=== PATIENT | female | born 1945 | race Caucasian/White ===

== ENCOUNTER 2019-11-04 15:49 | Outpatient (CLI) | payer OTHER, SELFPAY ==
[2019-11-04 16:58] LABS: Alanine Aminotransferase 19 U/L (4-35); Alkaline Phosphatase 101 U/L (38-126); Anion Gap 8 mmol/L (8-16); Aspartate Amino Transferase 27 U/L (14-36); Bilirubin,Total < 0.1 mg/dL (0.2-1.3); Blood Urea Nitrogen 16 mg/dL (7-17); Calcium 8.7 mg/dL (8.4-10.2); Carbon Dioxide 23 mmol/L (22-30); Chloride 108 mmol/L (98-107); Cholesterol 244 mg/dL (0-200); Estimated Glomerular Filt Rate > 60; Glucose 64 mg/dL (65-105); HDL Direct 86 mg/dL; Potassium 3.4 mmol/L (3.4-5.0); Sodium 139 mmol/L (137-145); Triglycerides 196 mg/dL (<150)
[2019-11-04 17:13] LABS: LDL Cholesterol Direct 124 mg/dL
[2019-11-04 18:13] LABS: Hemoglobin A1C 5.5 % (<5.7)
== END 2019-11-04 15:50 | disposition home or self-care (01) ==
LOC: ANHLAB 15:52
PROVIDERS: PCP Emergency Medicine; Visit Provider Emergency Medicine
DX: E03.9 Hypothyroidism, unspecified (principal)
CPT/HCPCS: 36415; 80053; 80061; 83036; 84443

== ENCOUNTER 2020-03-21 14:21 | Inpatient (IN) | payer OTHER, MEDICAID, SELFPAY ==
[2020-03-21] VITALS (30 sets, daily range): BP systolic 110–132; BP diastolic 43–96; PULSE 67–101; RESP 12–29; TEMP 36.1–36.4; O2SAT 86–100; BMI 20.5
--- NOTE | ~2020-03-21 | XR_ITS ---
EXAMINATION: XR hand LT min 3V DATE: 03/21/2020 14:42 INDICATION: Left hand pain and swelling. TECHNIQUE: 3 views of left hand were obtained. COMPARISON: None. FINDINGS: Bone alignment is normal. There is diffuse osteopenia. No fracture. Joint spaces are normal . IMPRESSION: 1. No fracture. Reviewed, dictated and finalized at location A. SELING SERVICES DIRECTOR IMPRESSION: 1. No fracture.
--- NOTE | ~2020-03-21 | CT_ITS ---
EXAMINATION: CT brain wo con DATE: 03/21/2020 22:41 INDICATION: Dizziness TECHNIQUE: Computed tomography (CT) of the head was performed without intravenous contrast. Sagittal and coronal reconstructions were performed. The mA was adjusted according to patient size. Iterative reconstruction technique was employed. The dose-length product was 1210.67 mGy-cm. COMPARISON: head CT dated 09/12/15 FINDINGS: No acute intracranial hemorrhage, acute infarction or abnormal extra axial fluid collection. There is mild scattered white matter hypoattenuation consistent with chronic small vessel ischemic disease. S ymmetric prominence of the sulci consistent with mild age-appropriate diffuse cerebral volume loss. V entricles are normal and symmetric. No mass/mass effect. Intracranial calcified cerebral atherosclero sis is noted. The orbits, paranasal sinuses and mastoid air cells are normal. IMPRESSION: 1. No acute intracranial process. 2. Age-related changes including mild diffuse volume loss and mild scattered white matter hypoattenua tion consistent with chronic small vessel ischemic disease. Reviewed, dictated and finalized at location A. HT CONTROL TOWER OPERATOR IMPRESSION: 1. No acute intracranial process. 2. Age-related changes including mild diffuse volume loss and mild scattered wh ite matter hypoattenuation consistent with chronic small vessel ischemic diseas e.
--- NOTE | ~2020-03-21 | XR_ITS ---
EXAMINATION: XR chest 2V DATE: 03/21/2020 14:42 INDICATION: Chest pain and shortness of breath. TECHNIQUE: Frontal and lateral views of the chest were obtained. COMPARISON: Chest 2 views 03/31/2018, CT abdomen and pelvis 08/15/2016 FINDINGS: There are small pleural effusions. There are airspace opacities at the lung bases. No pneum othorax. The heart size is normal. There is a moderate-sized hiatal hernia. There are bilateral breas t implants. IMPRESSION: 1. Small pleural effusions. 2. Airspace opacities at the lung bases, consistent with atelectasis versus pneumonia. 3. Moderate-sized hiatal hernia. Reviewed, dictated and finalized at location A. H TESTER IMPRESSION: 1. Small pleural effusions. 2. Airspace opacities at the lung bases, consistent with atelectasis versus pne umonia. 3. Moderate-sized hiatal hernia.
--- NOTE | ~2020-03-21 | CT_ITS ---
EXAMINATION: CTA chest PE protocol DATE: 03/21/2020 22:41 INDICATION: Chest pain TECHNIQUE: Computed tomography (CT) pulmonary angiogram of the chest was performed with 100 mL Omnipa que-350 intravenous contrast. Additional 3D reconstructions utilizing coronal maximum intensity proje ction (MIP) were performed. The dose-length product was 274.87 mGy-cm. COMPARISON: None FINDINGS: There is mild streak artifact from dense contrast in the superior vena cava and right atrium. Mild sc attered respiratory motion artifact. Excellent contrast opacification of the majority of the pulmonar y arteries. The proximal margin of the contrast bolus however is not completely extended into the sub segmental pulmonary arteries in the basilar segments of the bilateral lower lobes which transition to an opacified blood pool without a discrete well-defined filling defect. No pulmonary emboli identifi ed. Moderate emphysema. Small left and moderate-sized right posterior layering pleural effusions with compressive atelectasis in the dependent aspect of the bilateral lower lobes and to a lesser degree along the posterior aspect of the apical segments of the bilateral upper lobes. Dependent groundglass opacities in the noncollapsed portions of the lungs which in order of likelihood could represent add itional atelectasis, mild pulmonary edema or pneumonia. Mild cardiomegaly. No pericardial effusion. T horacic aorta is normal in caliber. No pathologically enlarged thoracic lymphadenopathy. Small slidin g-type hiatal hernia. There is some fluid layering dependently in the esophagus suggesting reflux. Bi lateral likely silicone breast implants with peripheral capsular calcification. There is a linguine s ign on the right consistent with implant rupture with relatively contained lobular extra capsular ext ension of silicone extending towards the right axilla. Visualized upper abdomen is unremarkable. Thor acolumbar dextroscoliosis with mild to moderate spondylosis. IMPRESSION: 1. No pulmonary embolism. Some of the more peripheral pulmonary arteries in the bibasilar segments of the lower lobes are unable to be assessed due to incomplete contrast opacification resulting from ph ase of contrast. 2. Small left and moderate sized right pleural effusions. 3. Dependent predominant opacities and consolidation in both lungs most likely atelectasis although c ould not exclude mild pulmonary edema or less likely pneumonia. 4. Moderate emphysema. 5. Mild cardiomegaly. 6. Likely refluxed fluid in the esophagus with small sliding-type hiatal hernia. 7. Bilateral breast implants, ruptured on the right with relatively contained extracapsular extension of likely silicone. Reviewed, dictated and finalized at location A. ULATION SUPERVISOR IMPRESSION: 1. No pulmonary embolism. Some of the more peripheral pulmonary arteries in the bibasilar segments of the lower lobes are unable to be assessed due to incompl ete contrast opacification resulting from phase of contrast. 2. Small left and moderate sized right pleural effusions. 3. Dependent predominant opacities and consolidation in both lungs most likely atelectasis although could not exclude mild pulmonary edema or less likely pneu monia. 4. Moderate emphysema. 5. Mild cardiomegaly. 6. Likely refluxed fluid in the esophagus with small sliding-type hiatal hernia . 7. Bilateral breast implants, ruptured on the right with relatively contained e xtracapsular extension of likely silicone.
--- NOTE | ~2020-03-21 | US_ITS ---
EXAMINATION: US soft tissue UE LT DATE: 03/27/2020 11:04 INDICATION: Dorsal left wrist swelling. TECHNIQUE: Multiple grayscale and Doppler ultrasound images of the left wrist were obtained. COMPARISON: Radiographs dated 03/21/2020 FINDINGS: There is diffuse subcutaneous edema about the left wrist. Trace amount of fluid along the extensor te ndons consistent with mild tenosynovitis. There is also hypoechoic and hyperemic synovitis at both th e dorsal and volar aspects of the wrist and carpus without a drainable joint effusion. IMPRESSION: 1. Nonspecific cellulitis, synovitis and extensor tenosynovitis at the left wrist which could be eith er infectious or inflammatory in etiology. No joint effusion or other drainable fluid collections. Reviewed, dictated and finalized at location A. ESTATE RENTAL AGENT IMPRESSION: 1. Nonspecific cellulitis, synovitis and extensor tenosynovitis at the left wri st which could be either infectious or inflammatory in etiology. No joint effus ion or other drainable fluid collections.
--- NOTE | ~2020-03-21 | XR_ITS ---
EXAMINATION: XR wrist LT min 3V DATE: 03/21/2020 18:15 INDICATION: Cellulitis presenting with left wrist and arm pain. TECHNIQUE: Posteroanterior, ulnar deviation, oblique, and lateral views of the left wrist were obtain ed. COMPARISON: Left hand radiographs dated 03/21/2020 FINDINGS: Bone alignment is normal. No fracture. Joint spaces are normal. Diffuse osteopenia. No cortical erosi ons or periosteal reaction to suggest osteomyelitis. Soft tissue swelling about the left wrist and [place] nd most prominent volar to the wrist. No evident soft tissue gas or radiopaque foreign bodies. IMPRESSION: 1. No acute osseous abnormality Reviewed, dictated and finalized at location A. GOLF CART REPAIRER
--- NOTE | 2020-03-21 14:25 | ECG_ITS ---
Measurements Intervals [place] Rate: 71 P: 20 MS: 151 QRS: -14 QRSD: 116 T: 35 QT: 411 QTc: 448 Interpretive Statements SINUS RHYTHM INTRAVENTRICULAR CONDUCTION DELAY BORDERLINE R WAVE PROGRESSION, ANTERIOR LEADS NONSPECIFIC ST & T-WAVE ABNORMALITY- DIFFUSE LEADS BASELINE ARTIFACT- I, II, III, AVR, AVL, AVF, V2-V6 BORDERLINE ECG Electronically Signed On 03-21-2020 14:36:07 SENIOR ACCOUNTANT ANALYST by Kenroy Solis D.O.
[2020-03-21 14:41] LABS: Basophils Absolute Auto 0.1 K/mm3 (0.0-0.1); Basophils Percent Auto 0.7 % (0.2-1.2); Eosinophils Percent Auto 0.1 % (0-4.4); Hematocrit 28.4 % (37.0-47.0); Hemoglobin 7.7 g/dL (12.0-15.0); Immature Granulocyte Absolute 0.04 K/mm3 (0.00-0.031); Immature Granulocyte Percent A 0.5 % (0-0.5); Lymphocytes Absolute Auto 1.47 K/mm3 (0.9-3.2); Mean Corpuscular HGB Conc 27.1 g/dl (32-36); Mean Corpuscular Hemoglobin 18.3 pg (26-34); Mean Corpuscular Volume 67.6 fl (80-100); Mean Platelet Volume 8.8 fl (7.4-10.4); Monocytes Absolute Auto 0.8 K/mm3 (0.1-0.6); Monocytes Percent Auto 9.9 % (2.6-8.5); Neutrophils Absolute Auto 5.8 K/mm3 (1.3-6.7); Neutrophils Percent Auto 70.8 % (45.5-73.1); Platelet Count Result 321 k/mm3 (150-375); Red Cell Distribution Width 20.7 % (11.5-14.5); White Blood Count 8.2 K/mm3 (4.5-10.0)
[2020-03-21 14:51] LABS: INR 1.3; Prothrombin Time 16.9 Seconds (11.1-14.7)
[2020-03-21 14:52] LABS: Partial Thromboplastin Time 30.1 SECONDS (22.3-36.8)
[2020-03-21 14:55] LABS: Anion Gap 10 mmol/L (8-16); Blood Urea Nitrogen 7 mg/dL (7-17); Calcium 8.1 mg/dL (8.4-10.2); Carbon Dioxide 21 mmol/L (22-30); Chloride 110 mmol/L (98-107); Estimated Glomerular Filt Rate > 60; Glucose 108 mg/dL (65-105); Potassium < 2.0 mmol/L (3.4-5.0); Sodium 141 mmol/L (137-145)
[2020-03-21 15:03] LABS: NT Pro B Type Natriuretic Pept 21200 PG/ML (5-100)
[2020-03-21 15:05] LABS: Platelet Estimate Adequate (Adequate); Troponin I 0.024 ng/mL (0.000-0.034)
[2020-03-21 15:06] LABS: Anisocytosis 3+ (NORMAL); Hypochromasia 2+ (NORMAL)
[2020-03-21 15:13] LABS: CRP 15.1 mg/dL (<1.0)
[2020-03-21] MEDS: ASPIRIN 81 MG CHEWABLE TABLET 324 MG PO (17:28)
--- NOTE | 2020-03-21 18:05 | ED.GENADULT ---
HPI - General Adult General Chief complaint: Wound/Laceration Stated complaint: cellulitis l hand Time Seen by Provider: 03/21/20 17:38 Source: patient History of Present Illness HPI narrative: Patient is a 75 y/o female complaining of left wrist pain for 5 days. She describes her pain as burning and rates it as 8/10. She states that her pain radiate up her left arm. She states that soaking in cold water helps with her pain slightly. She denies any fever or chill. She has chronic chest pain for over 1 year which has been evaluated the past. Related Data Home Medications Medication Instructions Recorded Confirmed latanoprost 0.005 % eye drops 1 drop EACH EYE .COMPLEX 04/15/19 03/21/20 carvedilol 6.25 mg tablet 6.25 mg PO BID 08/11/19 03/21/20 pantoprazole 40 mg tablet,delayed 40 mg PO DAILY tablet 10/26/19 03/21/20 release levothyroxine 50 mcg PO DAILY 03/21/20 03/21/20 temazepam 15 mg PO HS 03/21/20 03/21/20 venlafaxine 75 mg PO DAILY 03/21/20 03/21/20 Allergies Allergy/AdvReac Type Severity Reaction Status Date / Time lactose AdvReac Mild emesis, Verified 03/21/20 17:18 diarrhea Review of Systems Constitutional: Constitutional: Denies chills, Denies fever(s), Denies headache(s) and Denies weakness Eyes: Eyes: Denies blurry vision ENT: Denies headache(s) and Denies neck pain Cardiovascular: Cardiovascular: Reports chest pain and Denies dyspnea Respiratory: Respiratory: Denies cough and Denies dyspnea Gastrointestinal: Gastrointestinal: Denies abdominal pain, Denies diarrhea, Denies nausea and Denies vomiting Genitourinary: Genitourinary: Denies hematuria and Denies dysuria Musculoskeletal: Musculoskeletal: Denies back pain, Reports arthralgias (left wrist pain) and Denies neck pain Integumentary/Breasts: Skin/Breast: Reports erythema (left wrist) Neurologic: Denies headache(s) and Denies weakness PMFSH Past Medical History Medical History Anxiety Depression Surgical History Surgical History H/O ankle fusion bilateral Social History Social History Smoking status: Current every day smoker Alcohol intake: never Substance use: never Gender identity (if verbalized by the patient): Female Spiritual care concerns: No Exam Const: General: no acute distress and well developed Orientation/consciousness: oriented to person, oriented to place, oriented to time and patient oriented x3 HENMT: Head: normocephalic Ears: external ears normal General nose exam: Normal external nose present Eyes: General: appearance normal, both eyes and all related structures Conjunctivae: conjunctivae normal Neck: Neck: normal visual inspection and full ROM Chest: Chest palpation & inspection: normal inspection of the chest and no tenderness Resp: Effort & Inspection: normal respiratory effort Auscultation: clear to auscultation bilaterally Cardio: Rate: regular rate Rhythm: regular rhythm GI: GI Palp: No abdominal tenderness and Yes Soft to palpation Skin: General skin exam: normal color, turgor normal and erythema (left wrist) Neuro: General: oriented to person, oriented to place, oriented to time and patient oriented x3 Cognition (Neuro): normal cognition Motor exam (neuro): Other motor observations present (right leg weak - chronic according to patient due to h/o polio) Extrem: General: normal to inspection, full ROM and no pedal edema Left upper extremity: wrist tenderness and swelling Psych: Appearance: grossly normal Mental Status: mental status grossly normal Affect: normal affect Course Reevaluation(s) Reevaluation #1: Patient is complaining of increasing chest pain and dizziness. Will repeat EKG and Troponin. Rechecked. Neuro exam is unchanged. Date: 03/21/20 Time: 20:25 Consultations Consultation #1: Discussed with KATALINA Marte
[2020-03-21] MEDS: POTASSIUM CHLORIDE 20 MEQ TABLET 40 MEQ PO (18:46)
[2020-03-21] MEDS: KCL 20 MEQ/SW 100 ML 100 ML 50 MEQ IVPB (19:01)
[2020-03-21 19:10] LABS: Potassium 2.4 mmol/L (3.4-5.0); Uric Acid 4.7 mg/dL (2.5-7.5)
[2020-03-21 19:14] LABS: Magnesium 1.6 mg/dL (1.6-2.3)
--- NOTE | 2020-03-21 19:15 | PC.NURSE ---
Assumed care of Pt. Report from LOIDA Schneider
[2020-03-21 19:56] LABS: Erythrocyte Sedimentation Rate 18 mm/hr (0-20)
[2020-03-21] MEDS: POTASSIUM CHLORIDE 20 MEQ TABLET 80 MEQ PO (20:11)
[2020-03-21] MEDS: ONDANSETRON INJ 4 MG/2 ML VIAL (20:40)
[2020-03-21] MEDS: MAGNESIUM SULF 4 GM/WATER100ML 4 GM/100 ML BAG IVPB (20:40)
--- NOTE | 2020-03-21 20:49 | PC.NURSE ---
Pt. placed on 2L NC o2 88% ERP notified.
--- NOTE | 2020-03-21 20:56 | ECG_ITS ---
Measurements Intervals [place] Rate: 67 P: 57 AK: 169 QRS: -59 QRSD: 117 T: 0 QT: 431 QTc: 458 Interpretive Statements SINUS RHYTHM POSSIBLE LEFT ATRIAL ENLARGEMENT LEFT ANTERIOR FASCICULAR BLOCK NONSPECIFIC ST & T-WAVE ABNORMALITY- DIFFUSE LEADS BASELINE ARTIFACT- I, II, III, V1 ABNORMAL ECG Electronically Signed On 03-22-2020 7:03:19 LOCOMOTIVE LUBRICATING SYSTEMS CLERK by Kenroy Solis D.O.
[2020-03-21] MEDS: MORPHINE SULFATE (*CRX) 4 MG/ML INJ IV PUSH (21:03)
[2020-03-21] MEDS: LORazepam INJ (*CRX) 2 MG/ML VIAL 1 MG IV PUSH (21:05)
[2020-03-21 21:06] LABS: Troponin I 0.022 ng/mL (0.000-0.034)
[2020-03-21 21:45] LABS: D Dimer 1.75 ug/mL (<0.48)
--- NOTE | 2020-03-21 22:40 | PC.NURSE ---
Report received from LOIDA Pryor
[2020-03-21] MEDS: FUROSEMIDE INJ 40 MG/4 ML VIAL IV PUSH (23:00)
--- NOTE | 2020-03-21 23:07 | ADMIMU ---
This patient, Gianna Miranda, was admitted to IMU status, and placed in IMU Room 207-01 on 03-21-20 at 2300. Patient/family oriented to hospital policies and general routines including ID bracelet, bed and alarms, visiting hours, pain management, procedures, bathroom and other care routines, personal items, smoking policy, room service/diet, and visiting hours. Valuables list has been completed. Information on how to activate the Rapid Response Team has been discussed. Patient/Family are encouraged to report perceived risks to care and to ask questions if they do not understand what they are told or what they should do.
[2020-03-21 23:49] LABS: Troponin I 0.023 ng/mL (0.000-0.034)
[2020-03-22] VITALS (15 sets, daily range): BP systolic 96–133; BP diastolic 42–82; PULSE 67–85; RESP 18–20; TEMP 36.2–36.6; O2SAT 92–100
--- NOTE | 2020-03-22 | ECHO_ITS ---
Patient Info Name: Gianna Miranda Age: 75 years : 1945 Gender: Female Ht: 57 in Wt: 94 lbs BSA: 1.31 m2 HR: 71 bpm BP: 120 / 42 mmHg Heart Rhythm: Sinus Rhythm Technical Quality: Good Exam Date: 03/22/2020 11:39 AM Exam Location: [facility] Pulmonary Patient Status: Outpatient Admit Date: 03/21/2020 Staff Ordering Physician: John Reyes MD Dukey Rider: Vance Worthy, KADIE, RT Attending Provider: John Reyes MD Exam Type: CA echo doppler color flow Study Info Indications R07.89 - Other chest pain Complete two-dimensional, color flow and Doppler transthoracic echocardiogram is performed. Strain analysis performed. Summary 1. Complete two-dimensional, color flow and Doppler transthoracic echocardiogram is performed. 2. There is normal left ventricular size and thickness, with severe global hypokinesis estimated ejection fraction 25-30%. Grade 2 diastolic dysfunction is present. No focal wall motion abnormalities. 3. Left atrial chamber dimension is moderately enlarged. 4. There is moderate to severe aortic valve regurgitation. 5. There is moderate to moderately severe mitral valve regurgitation. 6. There is mild tricuspid valve regurgitation. 7. Mild pulmonary hypertension, estimated pulmonary arterial systolic pressure is 42 mmHg. 8. A small posterior pleural effusion may be present. 9. Compared to a prior study in 2010, there has been a significant decline in left ventricular function and worsening of valvular heart disease. Left Ventricle Left ventricular chamber dimension is normal. Left ventricular systolic function is severely reduced, estimated at 25-30%. There is no increased left ventricular wall thickness. Left ventricular septal wall motion is normal. The left ventricular diastolic function is grade II diastolic dysfunction. Right Ventricle Right ventricular chamber dimension is normal. Right ventricular systolic function is normal. Left Atria Left atrial chamber dimension is moderately enlarged. Right Atria Right atrial chamber dimension is normal. Aortic Valve The aortic valve is trileaflet. There is no aortic valve sclerosis. There is no aortic valve stenosis. There is moderate to severe aortic valve regurgitation. Pulmonic Valve The pulmonic valve is normal. There is no pulmonic valve stenosis. There is no pulmonic regurgitation. Mitral Valve The mitral valve has normal leaflets. There is moderate to moderately severe mitral valve stenosis. There is moderate to moderately severe mitral valve regurgitation. Tricuspid Valve The tricuspid valve leaflets are normal. There is no significant tricuspid valve stenosis. There is mild tricuspid valve regurgitation. Mild pulmonary hypertension, estimated pulmonary arterial systolic pressure is 42 mmHg. Pericardium/Pleural The pericardium appears normal. There is no pericardial effusion. Inferior Vena Cava Normal inferior vena cava with >50% collapse upon inspiration consistent with Empty right atrial pressure, 10 mmHg. Aorta The aortic root size at the sinus of Valsalva is normal. The prox ascending aorta size is normal. Left Ventricular Outflow Tract Name Value Normal LVOT 2D LVOT Diameter
[2020-03-22 05:10] LABS: Hematocrit 28.4 % (37.0-47.0); Hemoglobin 7.8 g/dL (12.0-15.0); Mean Corpuscular HGB Conc 27.5 g/dl (32-36); Mean Corpuscular Hemoglobin 18.5 pg (26-34); Mean Corpuscular Volume 67.5 fl (80-100); Mean Platelet Volume 9.1 fl (7.4-10.4); Platelet Count Result 338 k/mm3 (150-375); Red Blood Count 4.21 M/mm3 (4.2-5.4); Red Cell Distribution Width 20.9 % (11.5-14.5); White Blood Count 8.1 K/mm3 (4.5-10.0)
[2020-03-22 05:22] LABS: INR 1.2; Partial Thromboplastin Time 32.6 SECONDS (22.3-36.8); Prothrombin Time 15.7 Seconds (11.1-14.7)
[2020-03-22 05:50] LABS: Anion Gap 9 mmol/L (8-16); Blood Urea Nitrogen 9 mg/dL (7-17); Calcium 8.1 mg/dL (8.4-10.2); Carbon Dioxide 24 mmol/L (22-30); Chloride 110 mmol/L (98-107); Estimated Glomerular Filt Rate > 60; Glucose 118 mg/dL (65-105); Magnesium 2.5 mg/dL (1.6-2.3); Phosphorus 3.3 mg/dL (2.5-4.5); Sodium 143 mmol/L (137-145)
[2020-03-22 05:56] LABS: Transferrin 306 mg/dL (206-381)
[2020-03-22 06:07] LABS: Iron 19 ug/dL (37-170)
[2020-03-22 06:17] LABS: Percent Iron Saturation 5 % (20-50)
[2020-03-22] MEDS: LEVOTHYROXINE SODIUM 50 MCG TABLET PO (06:37)
[2020-03-22 06:58] LABS: Folic Acid 13.9 ng/mL (2.76->20); Vitamin B12 > 1000.0 pg/mL (239-931)
[2020-03-22] MEDS: VENLAFAXINE HCL XR 75 MG CAP.ER.24H PO (07:58)
[2020-03-22] MEDS: PANTOPRAZOLE 40 MG TABLET PO (07:59)
[2020-03-22] MEDS: LATANOPROST 0.005% OP SOLN 2.5 ML BTL 1 DROP EACH EYE (08:00)
[2020-03-22] MEDS: carvediloL 6.25 MG TABLET PO ×2 (08:05→17:36)
[2020-03-22] MEDS: POTASSIUM CHLORIDE 20 MEQ TABLET 40 MEQ PO (11:16)
--- NOTE | 2020-03-22 16:50 | PM.IMHP ---
H&P: HPI History of Present Illness Date/Time: 03/22/20 16:50 Chief Complaint: Left wrist pain and swelling Narrative: Gianna Miranda is a 75 year old female presented emergency department with a complaint of left wrist pain and swelling patient states she had a similar presentation last year in her lower extremity and developed severe cellulitis and was admitted in ICU. She does not know how she injured the wrist however it is very painful for her, x-ray of left wrist and hand showed no acute injury, will start the patient on Ancef for cellulitis, she denies any fever or chills, she also has a long history of chest pain for which patient has been evaluated in the past and currently 3 sets of cardiac enzymes are negative and there are no acute injury on EKG. Review of Systems Review of Systems: All systems reviewed & are unremarkable except as noted in HPI and below PMFSH Past Medical History Medical History Anxiety Depression Surgical History Surgical History H/O ankle fusion bilateral Family History Family History (Updated 03/22/20 @ 02:39 by Marilin Ricardo RN) Grandparent Diabetes mellitus FH: brain aneurysm Mother Hypertension Social History Social History Smoking packs per day: 1 Smoking cigarettes per day: 20.0 Years smoked: 30 Smoking pack-years: 30.00 Smoking status: Former smoker Tobacco type: cigarettes Second hand tobacco smoke exposure: Yes Alcohol intake: never Substance use: never Gender identity (if verbalized by the patient): Female Spiritual care concerns: No Meds Home Medications and Allergies Home Medications Medication Instructions Recorded Confirmed Type latanoprost 0.005 % eye drops 1 drop EACH EYE .COMPLEX 04/15/19 03/21/20 History carvedilol 6.25 mg tablet 6.25 mg PO BID 08/11/19 03/21/20 History pantoprazole 40 mg tablet,delayed 40 mg PO DAILY tablet 10/26/19 03/21/20 History release levothyroxine 50 mcg PO DAILY 03/21/20 03/21/20 History temazepam 15 mg PO HS 03/21/20 03/21/20 History venlafaxine 75 mg PO DAILY 03/21/20 03/21/20 History Allergies Allergy/AdvReac Type Severity Reaction Status Date / Time lactose AdvReac Mild emesis, Verified 03/21/20 17:18 diarrhea Vital Signs Vital Signs - 24 hr 03/21/20 17:17 03/21/20 19:00 03/21/20 19:01 Temperature Pulse Rate 78 76 76 Respiratory Rate 18 19 21 H Blood Pressure 119/71 125/78 Pulse Oximetry 100 100 03/21/20 19:10 03/21/20 19:15 03/21/20 19:16 Temperature Pulse Rate 101 H 75 74 Respiratory Rate 12 16 12 Blood Pressure 119/49 L 126/58 L Pulse Oximetry 99 99 100 03/21/20 19:30 03/21/20 19:31 03/21/20 19:45 Temperature Pulse Rate 79 78 81 Respiratory Rate 25 H 25 H 25 H Blood Pressure 132/57 L Pulse Oximetry 100 100 100 03/21/20 19:46 03/21/20 20:00 03/21/20 20:02 Temperature Pulse Rate 78 75 75 Respiratory Rate 15 21 H 19 Blood Pressure 127/55 L 119/49 L Pulse Oximetry 99 99 98 03/21/20 20:03 03/21/20 20:17 03/21/20 20:38 Temperature Pulse Rate 76 99 68 Respiratory Rate 20 16 29 H Blood Pressure Pulse Oximetry 97 89 L 03/21/20 20:41 03/21/20 20:42 03/21/20 20:45 Temperature Pulse Rate 68 68 69 Respiratory Rate 27 H 26 H 25 H Blood Pressure 123/56 L Pulse Oximetry 86 L 03/21/20 20:46 03/21/20 21:00 03/21/20 21:01 Temperature Pulse Rate 67 71 70 Respiratory Rate 25 H 27 H 17 Blood Pressure 117/57 L 126/58 L Pulse Oximetry 100 100 03/21/20 21:15 03/21/20 21:30 03/21/20 21:45 Temperature Pulse Rate 81 75 67 Respiratory Rate 20 14 12 Blood Pressure Pulse Oximetry 100 03/21/20 21:46 03/21/20 22:16 03/21/20 22:18 Temperature Pulse Rate 68 74 75 Respiratory Rate 17 13 13 Blood Pressure 110/96 H Pulse Oximetry
[2020-03-22] MEDS: TEMAZEPAM (*CRX) 15 MG CAPSULE PO (19:43)
--- NOTE | 2020-03-22 20:35 | PC.NURSE ---
This patient, Gianna Miranda, was transferred to [facility] on 03/22/20 at 2035. Personal belongings sent with patient. Report given to Ranulfo MARISCAL. Appropriate documentation sent with patient.
[2020-03-23] VITALS (11 sets, daily range): BP systolic 104–131; BP diastolic 44–68; PULSE 71–93; RESP 16–18; TEMP 36.1–36.5; O2SAT 93–100
[2020-03-23] MEDS: LEVOTHYROXINE SODIUM 50 MCG TABLET PO (05:54)
[2020-03-23 06:10] LABS: Hematocrit 25.3 % (37.0-47.0); Mean Corpuscular HGB Conc 27.3 g/dl (32-36); Mean Corpuscular Hemoglobin 18.4 pg (26-34); Mean Corpuscular Volume 67.3 fl (80-100); Mean Platelet Volume 8.7 fl (7.4-10.4); Platelet Count Result 273 k/mm3 (150-375); Red Blood Count 3.76 M/mm3 (4.2-5.4); Red Cell Distribution Width 20.4 % (11.5-14.5); White Blood Count 7.3 K/mm3 (4.5-10.0)
[2020-03-23 06:18] LABS: Hemoglobin 6.9 g/dL (12.0-15.0)
[2020-03-23 06:24] LABS: Anion Gap 6 mmol/L (8-16); Blood Urea Nitrogen 12 mg/dL (7-17); Calcium 7.6 mg/dL (8.4-10.2); Carbon Dioxide 25 mmol/L (22-30); Chloride 107 mmol/L (98-107); Estimated Glomerular Filt Rate > 60; Glucose 95 mg/dL (65-105); Potassium 3.9 mmol/L (3.4-5.0); Sodium 138 mmol/L (137-145)
--- NOTE | 2020-03-23 08:18 | PM.IMPN ---
Progress Note: A&P Assessment and Plan (1) Acute systolic CHF (congestive heart failure): Code(s): I50.21 - Acute systolic (congestive) heart failure Status: Acute Assessment and Plan: Pts echo is showing an EF of 25-30% and the last echo we have here in 01/2019 showed an EF of 55%. -Pt states she had a cardiac cath last year without need for Intervention -She is unsure of her EF but says she is only on carvdiolol. I have requested records -Pt states she doesn't think her cyber security consultant is handling her case well and would like to possibly switch providers - BNP -She sees Dr. Stone but may be interested in finding a new doctor here -She has pleural effusions on her CTA, will start lasix today and ask Cardiology their recommendations -She has been having CP in the past, a stress test has been ordered by previous provider but I cancelled it because of her recent cardiac cath -Continue carvidolol -Consider entresto, await cardiology's recommendations (2) Cellulitis: Code(s): L03.90 - Cellulitis, unspecified Status: Acute Assessment and Plan: Continue cefazolin -Xrays without osseous abnormality -Pt stats she is still in pain but the swelling is better -will check uric acid as well to be thorough (3) Chest pain: Qualifiers: Chest pain type: unspecified Qualified Code(s): R07.9 - Chest pain, unspecified Code(s): R07.9 - Chest pain, unspecified Status: Acute Assessment and Plan: as above -trops negative x 3 (4) Anemia requiring transfusions: Code(s): D64.9 - Anemia, unspecified Status: Acute Assessment and Plan: Hgb 6.9 this morning - patient states has pernicious anemia but doesn't do well with oral iron and has not been getting her b12 injectios -Last colonoscopy was 3-[address] tsang per pt -appears more anemic than compared to 2019 labs -Iron studies show early iron deficiency anemia -Will check stool IFOB -Start iron therapy tomorrow (getting blood today) - she states she routinely has to get blood transfusions for this (5) Gastric reflux: Code(s): K21.9 - Gastro-esophageal reflux disease without esophagitis Status: Acute Assessment and Plan: Seen on CT -She tells me she has a hx of barretts esophagitis - she has seen Dr. Tsang but cannot remember how long ago she had an EGD. She understands she needs to follow back up with him because it can be pre cancerous -Continue protonix (6) Depression: Qualifiers: Active/Remission status: currently active Depression Type: major depressive disorder Major depression episode severity: moderate Major depression recurrence: recurrent Qualified Code(s): F33.1 - Major depressive disorder, recurrent, moderate Code(s): F32.9 - Major depressive disorder, single episode, unspecified Status: Acute Assessment and Plan: Chronic -Continue venlafaxine - will add p.r.n. Xanax since the patient is very anxious today due to her hospitalization (7) Pleural effusion: Code(s): J90 - Pleural effusion, not elsewhere classified Status: Acute Assessment and Plan: Seen on CT -Likely due to CHF - patient has been having dyspnea on exertion while transferring to her wheelchair - she says she occasionally has leg swelling but not now - she says the oxygen helps, continue that as needed -Will start lasix therapy (8) Hypothyroidism: Code(s): E03.9 - Hypothyroidism, unspecified Status: Acute Assessment and Plan: TSH WNL -Continue levothyroxine Time Spent With Patient Time with patient: 25 - 35 minutes Subjective Date/time seen: 03/23/20 08:18 Interval history: Pt is a 75-year-old female here for cellulitis and chest pain. patient was seen today and is very anxious. She says she had to be on life support due to cellulitis years ago and she is very anxious about t
[2020-03-23] MEDS: SODIUM CHLORIDE 0.9% IV 250 ML 30 ML IV CONT (10:24)
[2020-03-23] MEDS: PANTOPRAZOLE 40 MG TABLET PO (10:44)
[2020-03-23] MEDS: VENLAFAXINE HCL XR 75 MG CAP.ER.24H PO (10:44)
[2020-03-23] MEDS: carvediloL 6.25 MG TABLET PO ×2 (10:44→16:49)
[2020-03-23] MEDS: LATANOPROST 0.005% OP SOLN 2.5 ML BTL 1 DROP EACH EYE (10:45)
[2020-03-23] MEDS: ALPRAZolam (*CRX) 0.125 MG TABLET PO ×2 (11:19→16:48)
[2020-03-23] MEDS: FUROSEMIDE INJ 40 MG/4 ML VIAL IV PUSH (11:20)
--- NOTE | 2020-03-23 17:22 | PM.CNCAR ---
Assessment and Plan Assessment and plan (1) Acute on chronic combined systolic and diastolic congestive heart failure: Code(s): I50.43 - Acute on chronic combined systolic (congestive) and diastolic (congestive) heart failure Status: Acute Assessment and Plan: Patient has history of cardiomyopathy for several years with her ejection fraction ranging from about 40% to 55%. Her echo in January and on this admission shows that her EF has declined, now with an EF of 25-35%, and she presented with active heart failure and volume overload. She has only been on carvedilol recently with therapy limited by hypotension and orthostasis in the past. In addition she says she was not impressed with lisinopril. Cardiac catheterization in 2019 showed no significant coronary disease. Patient has diuresed well with Lasix and lungs sound clear now. Will discontinue furosemide since she appears euvolemic now, and start enalapril at low-dose. (2) Cardiomyopathy: Code(s): I42.9 - Cardiomyopathy, unspecified Status: Inactive Assessment and Plan: Longstanding cardiomyopathy with a decline recently, now EF 25-35%. (3) Aortic insufficiency: Code(s): I35.1 - Nonrheumatic aortic (valve) insufficiency Status: Acute Assessment and Plan: Moderate to severe aortic insufficiency by recent echoes. Murmur is not very prominent. No left ventricular enlargement which usually accompanies severe aortic insufficiency. Could consider further evaluation (niurka? MRI?) Although my index of suspicion for severe aortic insufficiency is low. In addition the patient designated herself as a DNR; she never wants to be on life support again, which may limit aggressive therapeutic options. (4) Mitral regurgitation: Code(s): I34.0 - Nonrheumatic mitral (valve) insufficiency Status: Acute Assessment and Plan: History of mitral regurgitation which also has waxed and waned, moderate to moderately severe by recent echo. (5) Chronic chest pain: Code(s): R07.9 - Chest pain, unspecified; G89.29 - Other chronic pain Status: Acute Assessment and Plan: Patient has chronic chest pain, non ischemic. (6) Iron deficiency anemia: Code(s): D50.9 - Iron deficiency anemia, unspecified Status: Acute Assessment and Plan: Severely iron deficient. May feel better and do better with iron infusions. (7) Hypokalemia: Code(s): E87.6 - Hypokalemia Status: Acute Assessment and Plan: Odd that patient was so profoundly hypokalemic on admission with a potassium of less than 2.0 when she is not taking any diuretics. History of Present Illness History of Present Illness Consult date/time: 03/23/20 17:22 Consult reason: congestive heart failure Reason For Visit: hypokalemia Narrative: Gianna Miranda is a 75-year-old female whom we were asked to see at the request of the hospitalist for advice and opinion regarding her worsening cardiomyopathy and CHF in consultation. She has a history of cardiomyopathy, CHF, and chronic chest pains. Patient was admitted on 03/21/2020 complaining of severe burning of her left wrist and arm 2nd to cellulitis. Chronic chest pain for 1 year. She was found to have pleural effusions and being congestive heart failure is well. She tells me she has had her cardiomyopathy for 10 years and did well with carvedilol until about 2 years ago when she started having more trouble with KRAUS and SOB. Apparently she was hospitalized for cellulitis and sepsis requiring life support about a year ago a [place]. Over the past year she went from walking with her crutches with
[2020-03-23] MEDS: TEMAZEPAM (*CRX) 15 MG CAPSULE PO (20:39)
[2020-03-23] MEDS: SACUBITRIL/VALSARTAN 12-13 MG TABLET 1 TAB PO (20:40)
[2020-03-24] MEDS: ALPRAZolam (*CRX) 0.125 MG TABLET PO ×2 (00:48→07:57)
[2020-03-24 05:48] VITALS: BP 139/50; PULSE 73; RESP 16; TEMP 36.4; O2SAT 97
[2020-03-24] MEDS: LEVOTHYROXINE SODIUM 50 MCG TABLET PO (05:50)
[2020-03-24 06:06] LABS: Hematocrit 32.7 % (37.0-47.0); Hemoglobin 9.6 g/dL (12.0-15.0); Mean Corpuscular HGB Conc 29.4 g/dl (32-36); Mean Corpuscular Hemoglobin 20.3 pg (26-34); Mean Corpuscular Volume 69.1 fl (80-100); Platelet Count Result 321 k/mm3 (150-375); Red Blood Count 4.73 M/mm3 (4.2-5.4); Red Cell Distribution Width 22.5 % (11.5-14.5)
[2020-03-24 06:15] LABS: Anion Gap 4 mmol/L (8-16); Blood Urea Nitrogen 12 mg/dL (7-17); Calcium 7.4 mg/dL (8.4-10.2); Carbon Dioxide 30 mmol/L (22-30); Chloride 106 mmol/L (98-107); Estimated Glomerular Filt Rate > 60; Glucose 106 mg/dL (65-105); Potassium 3.2 mmol/L (3.4-5.0); Sodium 140 mmol/L (137-145)
[2020-03-24 06:16] LABS: Uric Acid 5.3 mg/dL (2.5-7.5)
[2020-03-24] MEDS: VENLAFAXINE HCL XR 75 MG CAP.ER.24H PO (07:57)
[2020-03-24 07:58] VITALS: PULSE 88
[2020-03-24] MEDS: carvediloL 6.25 MG TABLET PO ×2 (07:58→16:54)
[2020-03-24] MEDS: LATANOPROST 0.005% OP SOLN 2.5 ML BTL 1 DROP EACH EYE (08:00)
[2020-03-24] MEDS: SACUBITRIL/VALSARTAN 12-13 MG TABLET 1 TAB PO ×2 (08:00→20:14)
[2020-03-24] MEDS: PANTOPRAZOLE 40 MG TABLET PO (08:00)
--- NOTE | 2020-03-24 09:06 | PM.IMPN ---
Progress Note: A&P Assessment and Plan (1) Acute systolic CHF (congestive heart failure): Code(s): I50.21 - Acute systolic (congestive) heart failure Status: Acute Assessment and Plan: Pts echo 03/22/20 shows an EF of 25-30%. She was previously established with Dr. Stone. Echo from Dr. Stone's office 01/2020 showed moderate global hypokinesis with EF 35%, mild MR, and moderate AI. She had cardiac cath 10/2018 showing no [place] [address] with pleural effusions on CTA. She expressed interest in seeing a new ore charger and Dr. Subramanian was consulted and input is greatly appreciated. She received IV lasix and appears euvolemic today Continue carvidolol Consider entresto Appreciate further cardiology recommendations Monitor volume status closely with daily weights and strict intake and output (2) Cellulitis: Code(s): L03.90 - Cellulitis, unspecified Status: Acute Assessment and Plan: Left wrist. Plain films demonstrate no osseous abnormality. Uric acid is normal. She is still having pain but does think things are a bit better overall. Blood cultures obtained in the ED show NGTD. She is afebrile and WBC normal. Continue cefazolin Continue to monitor closely Repeat CRP (3) Chest pain: Qualifiers: Chest pain type: unspecified Qualified Code(s): R07.9 - Chest pain, unspecified Code(s): R07.9 - Chest pain, unspecified Status: Acute Assessment and Plan: Chest CTA negative for PE. She had a cardiac cath 10/2018 showing no significant coronary disease. Troponin negative x3 and pain felt non-ischemic. She was seen by cardiology and input is appreciated. (4) Anemia requiring transfusions: Code(s): D64.9 - Anemia, unspecified Status: Acute Assessment and Plan: Hgb 6.9 the morning of 03/24 and she was transfused 1 unit pRBC. Repeat Hb today is 9.6. She has a hx of pernicious anemia and has not been getting B12 injections however B12 is sufficient. She does not tolerate oral iron but she is iron deficient. Last colonoscopy was 3-[address] Ritchie per patient. She needs to have this repeated outpatient given iron deficiency and anemia. She states she requires routine transfusions. Stool IFOB orderd and pending Will hold on IV iron for now given acute cellulitis and plan to have this set up outpatient Continue to monitor CBC daily and transfuse as needed to maintain Hb >7 (5) Gastric reflux: Code(s): K21.9 - Gastro-esophageal reflux disease without esophagitis Status: Acute Assessment and Plan: Seen on CT. 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 Ritchie in the past but does not know when last EGD was. Continue protonix She will need to follow-up with Dr. Ritchie outpatient for repeat EGD (6) Depression: Qualifiers: Active/Remission status: currently active Depression Type: major depressive disorder Major depression episode severity: moderate Major depression recurrence: recurrent Qualified Code(s): F33.1 - Major depressive disorder, recurrent, moderate Code(s): F32.9 - Major depressive disorder, single episode, unspecified Status: Acute Assessment and Plan: Chronic. Continue venlafaxine Continue PRN Xanax since the patient is very anxious due to her hospitalization (7) Pleural effusion: Code(s): J90 - Pleural effusion, not elsewhere classified Status: Acute Assessment and Plan: Seen on CT and she notes dyspnea on exertion with wheelchair transfers and occasional leg swelling. Likely due to CHF Continue oxygen as needed She received 1 dose of IV lasix 03/23 with improvement in breathing. She appears euvolemic at this time. (8) Hypothyroidism: Code(s): E03.9 - Hypothyroidism, unspecified Status: Acute Assessment and Plan: TSH WNL
[2020-03-24] MEDS: HYDROcodone/acetaminophen (*CRX) 7.5-325 MG TABLET 1 TAB PO ×2 (11:42→17:52)
[2020-03-24] MEDS: polyethylene glycoL 3350 17 GM POWD.PACK PO (11:42)
[2020-03-24] MEDS: POTASSIUM CHLORIDE 20 MEQ TABLET 40 MEQ PO (11:42)
[2020-03-24 14:00] VITALS: BP 116/47; PULSE 69; RESP 16; TEMP 36.4; O2SAT 98
--- NOTE | 2020-03-24 14:13 | PM.PNCARD ---
Progress Note: A&P Additional Plan Patient has clinical diagnosis of significant nonischemic cardiomyopathy she is not in heart failure in a decompensated sense at the time of this hospitalization. the patient was started on a modest dose of Entresto after being seen in consultation yesterday and hopefully she will tolerate this. Reassured the patient that I would speak to the nursing staff and they will address her concerns regarding receiving adequate antibiotic treatment for her cellulitis. Apparently she has decided after discharge she wishes to follow with Dr Subramanian in our office for her cardiomyopathy. Florian Maciel MD [facility] Subjective Date/time seen: Date of service:03/24/20 14:13 Interval history: 75-year-old female with: History of nonischemic cardiomyopathy being followed previously by Cardiology elsewhere. Admitted to the hospital with clinical diagnosis of cellulitis of the wrist. She was seen in consultation by Dr. Subramanian for her cardiomyopathy because apparently she has not had any regular cardiac follow-up in a while. Patient was maintained on only a modest dose of carvedilol. Entresto at low-dose started yesterday. Patient has no cardiac complaints today has a multitude of other complaints and is concerned that she is not receiving antibiotics appropriately for her cellulitis. Told the patient that I will review this with the nursing staff. Also reminded her that this is not a cardiac issue. Patient states that because she is DNR she thinks that is she is not receiving good care but she does not wish to be placed on life support in the future. Exam Narrative: Exam Narrative: Older female of petite build, somewhat of meandering historian, desiring to discuss a lot of noncardiac issues and her personal stressors. Const: General: comfortable and no acute distress; No confusion Orientation/consciousness: No confusion HENMT: General nose exam: no epistaxis Mouth: Yes moist mucous membranes Eyes: EOM: EOMs intact bilaterally Neck: Neck: supple and no JVD Thyroid: thyroid normal Carotids: no bruits Lymphatic: lymphadenopathy not noted Resp: Effort & Inspection: normal respiratory effort Auscultation: clear to auscultation bilaterally Cardio: Rate: regular rate Rhythm: regular rhythm Heart sounds: Murmur heart sound present Other: One to 2/6 apical murmur, barely audible intermittent diastolic murmur at the left upper sternal border. The only distal pulse I could palpate was the right dorsalis pedis. GI: Inspection: non-distended Skin: General skin exam: erythema (Very faint erythema of the left wrist) Neuro: General: No confusion Speech: normal speech Motor exam (neuro): strength not 5/5 throughout Extrem: General: no edema and no pedal edema Other: Muscle wasting of the lower extremities Psych: Affect: Anxious affect present Objective Data Vital Signs Vital Signs: Vital Signs - 24 hr 03/23/20 15:30 03/23/20 16:49 03/23/20 20:32 Temperature 36.5 C Pulse Rate 77 80 Respiratory Rate 16 Blood Pressure 108/49 L Pulse Oximetry 100 100 03/24/20 05:48 03/24/20 07:58 Temperature 36.4 C Pulse Rate 73 88 Respiratory Rate 16 Blood Pressure 139/50 L Pulse Oximetry 97 Intake/Output Intake/Output: Intake & Output 03/21/20 03/22/20 03/23/20 03/24/20 23:59 23:59 23:59 23:59 Intake Total 450 1260 1500 510 Output Total 3050 950 1200 Balance 450 -1790 550 -690 Meds/Results Medications: Active Medications Generic Name Dose Route Start Last Admin Trade Name Freq PRN Reason Stop Dose Admin Acetaminophen 650 mg 03/24/20 09:05 Acetaminophen 325 Mg Tablet PO Q6H PRN Mild Pain (1-3) or Fever Hydrocodone Bitart/Acetaminophen 1 tab 03/24/20 09:05 Hydrocodone/Acetaminophen (*Crx) 5-325 Mg Tablet PO Q6H PRN Pain Rated 4-6 Hydrocodone Bitart/Acetaminophen 1 tab 03/24/20 09:05 03/24/20 11:42 Hydrocodone/Acetaminophe
[2020-03-24 16:54] VITALS: PULSE 68
[2020-03-24 19:41] VITALS: BP 108/47; PULSE 72; RESP 14; TEMP 36.6; O2SAT 96
[2020-03-24] MEDS: DOCUSATE SODIUM 100 MG CAPSULE PO (20:14)
[2020-03-24] MEDS: TEMAZEPAM (*CRX) 15 MG CAPSULE PO (20:16)
[2020-03-25] MEDS: ALPRAZolam (*CRX) 0.125 MG TABLET PO (03:09)
[2020-03-25] MEDS: LEVOTHYROXINE SODIUM 50 MCG TABLET PO (05:34)
[2020-03-25 06:21] LABS: Hematocrit 33.7 % (37.0-47.0); Hemoglobin 9.5 g/dL (12.0-15.0); Mean Corpuscular HGB Conc 28.2 g/dl (32-36); Mean Corpuscular Hemoglobin 19.8 pg (26-34); Mean Corpuscular Volume 70.4 fl (80-100); Mean Platelet Volume 9.2 fl (7.4-10.4); Platelet Count Result 340 k/mm3 (150-375); Red Blood Count 4.79 M/mm3 (4.2-5.4); Red Cell Distribution Width 22.7 % (11.5-14.5); White Blood Count 7.6 K/mm3 (4.5-10.0)
[2020-03-25 06:37] LABS: Anion Gap 4 mmol/L (8-16); Blood Urea Nitrogen 11 mg/dL (7-17); CRP 8.4 mg/dL (<1.0); Calcium 7.8 mg/dL (8.4-10.2); Carbon Dioxide 30 mmol/L (22-30); Chloride 106 mmol/L (98-107); Estimated Glomerular Filt Rate > 60; Glucose 92 mg/dL (65-105); Magnesium 1.5 mg/dL (1.6-2.3); Potassium 3.6 mmol/L (3.4-5.0); Sodium 140 mmol/L (137-145)
[2020-03-25 06:41] VITALS: BP 124/55; PULSE 86; RESP 16; TEMP 36.8; O2SAT 93
[2020-03-25 08:00] VITALS: PULSE 97; RESP 16; O2SAT 93
[2020-03-25] MEDS: MAGNESIUM SULF 2 GM/WATER 50ML 2 GM/50 ML BAG IVPB (08:02)
[2020-03-25] MEDS: DOCUSATE SODIUM 100 MG CAPSULE PO (08:20)
[2020-03-25] MEDS: PANTOPRAZOLE 40 MG TABLET PO (08:20)
[2020-03-25] MEDS: SACUBITRIL/VALSARTAN 12-13 MG TABLET 1 TAB PO ×2 (08:20→20:06)
[2020-03-25 08:21] VITALS: PULSE 97
[2020-03-25] MEDS: carvediloL 6.25 MG TABLET PO ×2 (08:21→17:26)
[2020-03-25] MEDS: VENLAFAXINE HCL XR 75 MG CAP.ER.24H PO (08:21)
[2020-03-25] MEDS: LATANOPROST 0.005% OP SOLN 2.5 ML BTL 1 DROP EACH EYE (09:11)
[2020-03-25 14:00] VITALS: BP 112/52; PULSE 84; RESP 16; TEMP 36.4; O2SAT 98
--- NOTE | 2020-03-25 15:20 | PM.IMPN ---
Progress Note: A&P Assessment and Plan (1) Acute systolic CHF (congestive heart failure): Code(s): I50.21 - Acute systolic (congestive) heart failure Status: Acute Assessment and Plan: Pts echo 03/22/20 shows an EF of 25-30%. She was previously established with Dr. Stone. Echo from Dr. Stone's office 01/2020 showed moderate global hypokinesis with EF 35%, mild MR, and moderate AI. She had cardiac cath 10/2018 showing no [place] [address] with pleural effusions on CTA. She received IV lasix with improvement. She expressed interested in seeing a new platform software engineer and Dr. Subramanian was consulted and input is greatly appreciated. Continue carvidolol Consider entresto Appreciate further cardiology recommendations Monitor volume status closely with daily weights and strict intake and output (2) Cellulitis: Code(s): L03.90 - Cellulitis, unspecified Status: Acute Assessment and Plan: Left wrist. Plain films demonstrate no osseous abnormality. Uric acid is normal. Blood cultures obtained in the ED show NGTD. She is afebrile and WBC normal. CRP has improved significantly from 15.1 to 8.4. She does note improvement in pain and swelling today. Erythema has improved significantly. Continue cefazolin Continue to monitor closely (3) Chest pain: Qualifiers: Chest pain type: unspecified Qualified Code(s): R07.9 - Chest pain, unspecified Code(s): R07.9 - Chest pain, unspecified Status: Acute Assessment and Plan: Chest CTA negative for PE. She had a cardiac cath 10/2018 showing no significant coronary disease. Troponin negative x3 and pain felt non-ischemic. She was seen by cardiology and input is appreciated. She reports no further chest pain. (4) Anemia requiring transfusions: Code(s): D64.9 - Anemia, unspecified Status: Acute Assessment and Plan: Hgb 6.9 the morning of 03/24 and she was transfused 1 unit pRBC with stable hemoglobin. She has a hx of pernicious anemia and has not been getting B12 injections however B12 is sufficient. She does not tolerate oral iron but she is iron deficient. Last colonoscopy was 3-[address] Ritchie per patient. She needs to have this repeated outpatient given iron deficiency and anemia. She states she requires routine transfusions. Stool IFOB ordered and pending Will hold on IV iron for now given acute cellulitis and plan to have this set up outpatient Continue to monitor CBC daily and transfuse as needed to maintain Hb >7 (5) Gastric reflux: Code(s): K21.9 - Gastro-esophageal reflux disease without esophagitis Status: Acute Assessment and Plan: Seen on CT. 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 Ritchie in the past but does not know when last EGD was. Continue protonix She will need to follow-up with Dr. Ritchie outpatient for repeat EGD (6) Depression: Qualifiers: Active/Remission status: currently active Depression Type: major depressive disorder Major depression episode severity: moderate Major depression recurrence: recurrent Qualified Code(s): F33.1 - Major depressive disorder, recurrent, moderate Code(s): F32.9 - Major depressive disorder, single episode, unspecified Status: Acute Assessment and Plan: Chronic. Continue venlafaxine Continue PRN Xanax since the patient is very anxious due to her hospitalization (7) Pleural effusion: Code(s): J90 - Pleural effusion, not elsewhere classified Status: Acute Assessment and Plan: Seen on CT and she notes dyspnea on exertion with wheelchair transfers and occasional leg swelling. Likely due to CHF Continue oxygen as needed She received 1 dose of IV lasix 03/23 with improvement in breathing. She appears euvolemic at this time. (8) Hypothyroidism: Code(s): E03.9 - Hypothyro
[2020-03-25] MEDS: BISACODYL 5 MG TABLET EC PO (17:25)
[2020-03-25 17:26] VITALS: PULSE 76
[2020-03-25 19:39] VITALS: BP 109/50; PULSE 87; RESP 14; TEMP 37.2; O2SAT 96
[2020-03-25] MEDS: ENOXAPARIN 40 MG/0.4 ML SYRINGE SUB-Q (20:07)
[2020-03-25] MEDS: TEMAZEPAM (*CRX) 15 MG CAPSULE PO (20:07)
[2020-03-25] MEDS: HYDROcodone/acetaminophen (*CRX) 7.5-325 MG TABLET 1 TAB PO (21:06)
[2020-03-26] VITALS (7 sets, daily range): BP systolic 98–124; BP diastolic 41–66; PULSE 69–100; RESP 14–20; TEMP 36.4–37.4; O2SAT 85–100
[2020-03-26] MEDS: HYDROcodone/acetaminophen (*CRX) 7.5-325 MG TABLET 1 TAB PO (01:07)
[2020-03-26] MEDS: LEVOTHYROXINE SODIUM 50 MCG TABLET PO (05:31)
[2020-03-26 05:33] LABS: Hematocrit 34.4 % (37.0-47.0); Hemoglobin 9.7 g/dL (12.0-15.0); Mean Corpuscular HGB Conc 28.2 g/dl (32-36); Mean Corpuscular Volume 70.8 fl (80-100); Mean Platelet Volume 9.3 fl (7.4-10.4); Platelet Count Result 379 k/mm3 (150-375); Red Blood Count 4.86 M/mm3 (4.2-5.4); Red Cell Distribution Width 23.4 % (11.5-14.5); White Blood Count 8.4 K/mm3 (4.5-10.0)
[2020-03-26 05:46] LABS: Anion Gap 3 mmol/L (8-16); Blood Urea Nitrogen 11 mg/dL (7-17); Calcium 7.8 mg/dL (8.4-10.2); Carbon Dioxide 34 mmol/L (22-30); Chloride 105 mmol/L (98-107); Estimated Glomerular Filt Rate > 60; Glucose 99 mg/dL (65-105); Magnesium 1.9 mg/dL (1.6-2.3); Potassium 3.7 mmol/L (3.4-5.0); Sodium 142 mmol/L (137-145)
[2020-03-26] MEDS: ALPRAZolam (*CRX) 0.125 MG TABLET PO ×3 (08:48→23:00)
[2020-03-26] MEDS: VENLAFAXINE HCL XR 75 MG CAP.ER.24H PO (08:50)
[2020-03-26] MEDS: PANTOPRAZOLE 40 MG TABLET PO (08:50)
[2020-03-26] MEDS: LATANOPROST 0.005% OP SOLN 2.5 ML BTL 1 DROP EACH EYE (08:50)
[2020-03-26] MEDS: carvediloL 6.25 MG TABLET PO ×2 (08:51→16:13)
[2020-03-26] MEDS: SACUBITRIL/VALSARTAN 12-13 MG TABLET 1 TAB PO (08:51)
[2020-03-26] MEDS: BISACODYL 5 MG TABLET EC PO (10:25)
[2020-03-26] MEDS: diphenhydrAMINE HCl CAP 25 MG CAPSULE PO ×2 (10:25→16:38)
--- NOTE | 2020-03-26 10:47 | PM.PNCARD ---
Progress Note: A&P Additional Plan 75-year-old woman with: Significant nonischemic cardiomyopathy admitted to the hospital because of cellulitis of the wrist. No overt cardiac instability. She has been started on Entresto because of the low ejection fraction. No evidence of any problematic or concerning hypotension I will therefore advance the dosage to 24/26 mg. No other cardiac adjustments today. When she is discharged we will see that she gets follow-up appointments with Dr. Subramanian. Florian Maciel MD [facility] Subjective Date/time seen: Date of service: 03/26/20 10:47 Interval history: 75-year-old female with: History of nonischemic cardiomyopathy being followed previously by Cardiology elsewhere. Admitted to the hospital with clinical diagnosis of cellulitis of the wrist. She was seen in consultation by Dr. Subramanian for her cardiomyopathy because apparently she has not had any regular cardiac follow-up in a while. Patient was maintained on only a modest dose of carvedilol. Entresto at low-dose started yesterday. Resting comfortably no cardiovascular symptoms. Continues in the hospital on antibiotics for cellulitis of of the wrist. Exam Narrative: Exam Narrative: Older female of [place], somewhat of meandering historian, desiring to discuss a lot of noncardiac issues and her personal stressors. Const: General: comfortable and no acute distress; No confusion Orientation/consciousness: No confusion HENMT: General nose exam: no epistaxis Mouth: Yes moist mucous membranes Eyes: EOM: EOMs intact bilaterally Neck: Neck: supple and no JVD Thyroid: thyroid normal Carotids: no bruits Lymphatic: lymphadenopathy not noted Resp: Effort & Inspection: normal respiratory effort Auscultation: clear to auscultation bilaterally Cardio: Rate: regular rate Rhythm: regular rhythm Heart sounds: Murmur heart sound present Other: One to 2/6 apical murmur, barely audible intermittent diastolic murmur at the left upper sternal border. The only distal pulse I could palpate was the right dorsalis pedis. GI: Inspection: non-distended Skin: General skin exam: erythema (Very faint erythema of the left wrist) Neuro: General: No confusion Speech: normal speech Motor exam (neuro): strength not 5/5 throughout Extrem: General: no edema and no pedal edema Other: Muscle wasting of the lower extremities Psych: Affect: Anxious affect present Objective Data Vital Signs Vital Signs: Vital Signs - 24 hr 03/25/20 14:00 03/25/20 17:26 03/25/20 19:39 Temperature 36.4 C L 37.2 C Pulse Rate 84 76 87 Respiratory Rate 16 14 Blood Pressure 112/52 L 109/50 L Pulse Oximetry 98 96 03/26/20 05:18 03/26/20 08:51 Temperature 37.1 C Pulse Rate 100 76 Respiratory Rate 14 Blood Pressure 119/66 Pulse Oximetry 94 Intake/Output Intake/Output: Intake & Output 03/23/20 03/24/20 03/25/20 03/26/20 23:59 23:59 23:59 23:59 Intake Total 1550 970 700 450 Output Total 950 1300 550 600 Balance 600 -330 150 -150 Meds/Results Medications: Active Medications Generic Name Dose Route Start Last Admin Trade Name Freq PRN Reason Stop Dose Admin Acetaminophen 650 mg 03/24/20 09:05 Acetaminophen 325 Mg Tablet PO Q6H PRN Mild Pain (1-3) or Fever Hydrocodone Bitart/Acetaminophen 1 tab 03/24/20 09:05 Hydrocodone/Acetaminophen (*Crx) 5-325 Mg Tablet PO Q6H PRN Pain Rated 4-6 Hydrocodone Bitart/Acetaminophen 1 tab 03/24/20 09:05 03/26/20 01:07 Hydrocodone/Acetaminophen (*Crx) 7.5-325 Mg Tablet PO 1 tab Q4H PRN Administration Pain Rated 7-10 Alprazolam 0.125 mg 03/23/20 11:04 03/26/20 08:48 Alprazolam (*Crx) 0.125 Mg Tablet PO 0.125 mg TID PRN Administration Anxiety Bisacodyl 5 mg 03/25/20 16:05 03/26/20 10:25 Bisacodyl 5 Mg Tablet Ec PO 5 mg QAM PRN Administration Constipation Carvedilol 6.25 mg 03/22/20 08:00 03/26/20 08:51 Carvedil
--- NOTE | 2020-03-26 11:34 | PM.IMPN ---
Progress Note: A&P Assessment and Plan (1) Acute systolic CHF (congestive heart failure): Code(s): I50.21 - Acute systolic (congestive) heart failure Status: Acute Assessment and Plan: Pts echo 03/22/20 shows an EF of 25-30%. She was previously established with Dr. Stone. Echo from Dr. Stone's office 01/2020 showed moderate global hypokinesis with EF 35%, mild MR, and moderate AI. She had cardiac cath 10/2018 showing no [place] [address] with pleural effusions on CTA. She received IV lasix with improvement. She expressed interested in seeing a new manager terminal and Dr. Subramanian was consulted and input is greatly appreciated. Continue carvidolol Consider entresto, dose increased today to 24/26mg today per cardiology, appreciate input Appreciate further cardiology recommendations Monitor volume status closely with daily weights and strict intake and output (2) Cellulitis: Code(s): L03.90 - Cellulitis, unspecified Status: Acute Assessment and Plan: Left wrist. Plain films demonstrate no osseous abnormality. Uric acid is normal. Blood cultures obtained in the ED show NGTD. She is afebrile and WBC normal. CRP improved significantly from 15.1 to 8.4. She feels like symptoms are much better. Continue cefazolin with plan for discharge on oral antibiotics in the next 1-2 days Continue to monitor closely (3) Chest pain: Qualifiers: Chest pain type: unspecified Qualified Code(s): R07.9 - Chest pain, unspecified Code(s): R07.9 - Chest pain, unspecified Status: Acute Assessment and Plan: Chest CTA negative for PE. She had a cardiac cath 10/2018 showing no significant coronary disease. Troponin negative x3 and pain felt non-ischemic. She was seen by cardiology and input is appreciated. She has not had any further chest pain. (4) Anemia requiring transfusions: Code(s): D64.9 - Anemia, unspecified Status: Acute Assessment and Plan: Hgb 6.9 the morning of 03/24 and she was transfused 1 unit pRBC with stable hemoglobin. She has a hx of pernicious anemia and has not been getting B12 injections however B12 is sufficient. She does not tolerate oral iron but she is iron deficient. Last colonoscopy was 3-[address] Ritchie per patient. She needs to have this repeated outpatient given iron deficiency and anemia. She states she requires routine transfusions. Stool IFOB ordered and pending Will hold on IV iron for now given acute cellulitis and plan to have this set up outpatient Continue to monitor CBC daily and transfuse as needed to maintain Hb >7 (5) Gastric reflux: Code(s): K21.9 - Gastro-esophageal reflux disease without esophagitis Status: Acute Assessment and Plan: Seen on CT. 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 Ritchie in the past but does not know when last EGD was. Continue protonix She will need to follow-up with Dr. Ritchie outpatient for repeat EGD (6) Depression: Qualifiers: Depression Type: major depressive disorder Major depression recurrence: recurrent Active/Remission status: currently active Major depression episode severity: moderate Qualified Code(s): F33.1 - Major depressive disorder, recurrent, moderate Code(s): F32.9 - Major depressive disorder, single episode, unspecified Status: Acute Assessment and Plan: Chronic. Continue venlafaxine Continue PRN Xanax since the patient is very anxious due to her hospitalization (7) Pleural effusion: Code(s): J90 - Pleural effusion, not elsewhere classified Status: Acute Assessment and Plan: Seen on CT and she notes dyspnea on exertion with wheelchair transfers and occasional leg swelling. Likely due to CHF Continue oxygen as needed She received 1 dose of IV lasix 03/23 with improvement in breathing. She appears
--- NOTE | 2020-03-26 12:49 | PCPTNOTE ---
this patient reports that she has not ambulated for 8 months, but her ability with wc transfers, including taking a few steps suggests that she possesses the ability to improve her ability and independence with gait...she would be likely to benefit from home health PT to work on strengthening, transfers, and gait
[2020-03-26] MEDS: polyethylene glycoL 3350 17 GM POWD.PACK PO (16:38)
--- NOTE | 2020-03-26 16:46 | PC.NURSE ---
Refuses to get up to wheelchair for dinner time.
[2020-03-26 19:44] LABS: IFOB Positive Control Positive; Immunochemical Fecal Occult Bl Negative (N)
[2020-03-26] MEDS: TEMAZEPAM (*CRX) 15 MG CAPSULE PO (21:37)
[2020-03-26] MEDS: SACUBITRIL/VALSARTAN 24-26 MG TABLET 1 TAB PO (21:37)
[2020-03-27] MEDS: ACETAMINOPHEN 325 MG TABLET 650 MG PO (05:14)
[2020-03-27] MEDS: LEVOTHYROXINE SODIUM 50 MCG TABLET PO (05:15)
[2020-03-27 05:24] VITALS: BP 125/52; PULSE 89; RESP 14; TEMP 36.7; O2SAT 100
[2020-03-27 06:10] LABS: Hemoglobin 8.9 g/dL (12.0-15.0); Mean Corpuscular HGB Conc 27.8 g/dl (32-36); Mean Corpuscular Hemoglobin 19.9 pg (26-34); Mean Corpuscular Volume 71.4 fl (80-100); Mean Platelet Volume 9.8 fl (7.4-10.4); Platelet Count Result 325 k/mm3 (150-375); Red Blood Count 4.48 M/mm3 (4.2-5.4); Red Cell Distribution Width 23.9 % (11.5-14.5); White Blood Count 6.4 K/mm3 (4.5-10.0)
[2020-03-27 06:29] LABS: Anion Gap 6 mmol/L (8-16); Blood Urea Nitrogen 10 mg/dL (7-17); CRP 8.9 mg/dL (<1.0); Calcium 8.2 mg/dL (8.4-10.2); Carbon Dioxide 26 mmol/L (22-30); Chloride 109 mmol/L (98-107); Estimated Glomerular Filt Rate > 60; Glucose 130 mg/dL (65-105); Potassium 3.6 mmol/L (3.4-5.0); Sodium 141 mmol/L (137-145)
[2020-03-27 08:09] VITALS: PULSE 90
[2020-03-27] MEDS: LATANOPROST 0.005% OP SOLN 2.5 ML BTL 1 DROP EACH EYE (08:09)
[2020-03-27] MEDS: carvediloL 6.25 MG TABLET PO ×2 (08:09→17:11)
[2020-03-27] MEDS: PANTOPRAZOLE 40 MG TABLET PO (08:10)
[2020-03-27] MEDS: VENLAFAXINE HCL XR 75 MG CAP.ER.24H PO (08:10)
[2020-03-27] MEDS: SACUBITRIL/VALSARTAN 24-26 MG TABLET 1 TAB PO ×2 (08:10→20:03)
--- NOTE | 2020-03-27 10:21 | PM.IMPN ---
Progress Note: A&P Assessment and Plan (1) Acute systolic CHF (congestive heart failure): Code(s): I50.21 - Acute systolic (congestive) heart failure Status: Acute Assessment and Plan: Pts echo 03/22/20 shows an EF of 25-30%. She was previously established with Dr. Stone. Echo from Dr. Stone's office 01/2020 showed moderate global hypokinesis with EF 35%, mild MR, and moderate AI. She had cardiac cath 10/2018 showing no [place] [address] with pleural effusions on CTA. She received IV lasix with improvement. She expressed interested in seeing a new chef instructor and Dr. Subramanian was consulted and input is greatly appreciated. Continue carvidolol Consider entresto, dose increased to 24/26mg 03/26 per cardiology, appreciate input Appreciate further cardiology recommendations Monitor volume status closely with daily weights and strict intake and output (2) Cellulitis: Code(s): L03.90 - Cellulitis, unspecified Status: Acute Assessment and Plan: Left wrist. Plain films demonstrate no osseous abnormality. Uric acid is normal. Blood cultures obtained in the ED show NGTD. She is afebrile and WBC normal. CRP improved significantly from 15.1 to 8.4 03/25. Mild increase to 8.9 today. She feels like symptoms are much better and surrounding edema has resolved but there is still an area that appears mildly swollen at dorsal aspect of wrist. Discussed with radiology and will plan for ultrasound to ensure no effusion present given more localized swelling now that surrounding edema has resolved. If effusion is present, radiology will proceed with drainage and cultures. Continue cefazolin Continue to monitor closely (3) Chest pain: Qualifiers: Chest pain type: unspecified Qualified Code(s): R07.9 - Chest pain, unspecified Code(s): R07.9 - Chest pain, unspecified Status: Acute Assessment and Plan: Chest CTA negative for PE. She had a cardiac cath 10/2018 showing no significant coronary disease. Troponin negative x3 and pain felt non-ischemic. She was seen by cardiology and input is appreciated. She has not had any further chest pain. (4) Anemia requiring transfusions: Code(s): D64.9 - Anemia, unspecified Status: Acute Assessment and Plan: Hgb 6.9 the morning of 03/24 and she was transfused 1 unit pRBC with stable hemoglobin. She has a hx of pernicious anemia and has not been getting B12 injections however B12 is sufficient. She does not tolerate oral iron but she is iron deficient. Last colonoscopy was 3-[address] Ritchie per patient. She needs to have this repeated outpatient given iron deficiency and anemia. She states she requires routine transfusions. Stool occult blood testing negative. Will hold on IV iron for now given acute cellulitis and plan to have this set up outpatient Continue to monitor CBC daily and transfuse as needed to maintain Hb >7 (5) Gastric reflux: Code(s): K21.9 - Gastro-esophageal reflux disease without esophagitis Status: Acute Assessment and Plan: Seen on CT. 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 Ritchie in the past but does not know when last EGD was. Continue protonix She will need to follow-up with Dr. Ritchie outpatient for repeat EGD (6) Depression: Qualifiers: Depression Type: major depressive disorder Major depression recurrence: recurrent Active/Remission status: currently active Major depression episode severity: moderate Qualified Code(s): F33.1 - Major depressive disorder, recurrent, moderate Code(s): F32.9 - Major depressive disorder, single episode, unspecified Status: Acute Assessment and Plan: Chronic. Continue venlafaxine Continue PRN Xanax since the patient is very anxious due to her hospitalization (7) Pleural effusion: Code(s): J90 - Pleural effu
--- NOTE | 2020-03-27 10:55 | PM.PNCARD ---
Progress Note: A&P Assessment and Plan (1) Acute on chronic combined systolic and diastolic congestive heart failure: Code(s): I50.43 - Acute on chronic combined systolic (congestive) and diastolic (congestive) heart failure Status: Acute Assessment and Plan: Patient has history of cardiomyopathy for several years with her ejection fraction ranging from about 40% to 55%. Her echo in January and on this admission shows that her EF has declined, now with an EF of 25-35%, and she presented with active heart failure and volume overload. She has only been on carvedilol recently with therapy limited by hypotension and orthostasis in the past. In addition she says she was not impressed with lisinopril. Cardiac catheterization in 2019 showed no significant coronary disease. Patient has diuresed well with Lasix and lungs sound clear now. Continue Entresto. Continue other regimen. Up titrate as able as an outpatient. (2) Cardiomyopathy: Code(s): I42.9 - Cardiomyopathy, unspecified Status: Inactive Assessment and Plan: Longstanding cardiomyopathy with a decline recently, now EF 25-35%. (3) Aortic insufficiency: Code(s): I35.1 - Nonrheumatic aortic (valve) insufficiency Status: Acute Assessment and Plan: Moderate to severe aortic insufficiency by recent echoes. Murmur is not very prominent. No left ventricular enlargement which usually accompanies severe aortic insufficiency. Could consider further evaluation (niurka? MRI?) Although my index of suspicion for severe aortic insufficiency is low. In addition the patient designated herself as a DNR; she never wants to be on life support again, which may limit aggressive therapeutic options. (4) Mitral regurgitation: Code(s): I34.0 - Nonrheumatic mitral (valve) insufficiency Status: Acute Assessment and Plan: History of mitral regurgitation which also has waxed and waned, moderate to moderately severe by recent echo. (5) Chronic chest pain: Code(s): R07.9 - Chest pain, unspecified; G89.29 - Other chronic pain Status: Acute Assessment and Plan: Patient has chronic chest pain, non ischemic. (6) Iron deficiency anemia: Code(s): D50.9 - Iron deficiency anemia, unspecified Status: Acute Assessment and Plan: Severely iron deficient. May feel better and do better with iron infusions. (7) Hypokalemia: Code(s): E87.6 - Hypokalemia Status: Acute Assessment and Plan: Potassium chloride 40 mEq p.o. x1 to be given today and I will order Subjective Date/time seen: 03/27/20 10:55 Interval history: 75-year-old female with: History of nonischemic cardiomyopathy being followed previously by Cardiology elsewhere. Admitted to the hospital with clinical diagnosis of cellulitis of the wrist. She was seen in consultation by Dr. Subramanian for her cardiomyopathy because apparently she has not had any regular cardiac follow-up in a while. Patient was maintained on only a modest dose of carvedilol. Entresto at low-dose started yesterday. Follow-up note/ date of service 03/27/2020: Feels good. Breathing much better. No chest pains. Review of Systems Constitutional: Constitutional: Reports lethargy and Reports weakness Cardiovascular: Cardiovascular: Reports chest pain, Reports leg edema, Denies lightheadedness, Reports dyspnea and Reports dyspnea on exertion Respiratory: Respiratory: Reports chest congestion, Denies cough, Denies hemoptysis, Reports dyspnea, Reports dyspnea on exertion and Reports wheezing Gastrointestinal: Gastrointestinal: Denies abdominal pain and Denie
[2020-03-27] MEDS: POTASSIUM CHLORIDE 20 MEQ TABLET 40 MEQ PO (11:34)
[2020-03-27] MEDS: diphenhydrAMINE HCl CAP 25 MG CAPSULE PO (12:32)
[2020-03-27] MEDS: HYDROcodone/acetaminophen (*CRX) 5-325 MG TABLET 1 TAB PO ×2 (12:33→19:36)
[2020-03-27 14:00] VITALS: BP 107/45; PULSE 83; RESP 16; TEMP 36.4; O2SAT 100
[2020-03-27 17:11] VITALS: PULSE 83
[2020-03-27 19:51] VITALS: BP 100/76; PULSE 85; RESP 14; TEMP 36.3; O2SAT 100
[2020-03-27] MEDS: TEMAZEPAM (*CRX) 15 MG CAPSULE PO (20:02)
[2020-03-27] MEDS: ENOXAPARIN 40 MG/0.4 ML SYRINGE SUB-Q (20:03)
[2020-03-28] MEDS: HYDROcodone/acetaminophen (*CRX) 5-325 MG TABLET 1 TAB PO (04:31)
[2020-03-28] MEDS: LEVOTHYROXINE SODIUM 50 MCG TABLET PO (05:35)
[2020-03-28 05:47] LABS: Hematocrit 30.3 % (37.0-47.0); Hemoglobin 8.5 g/dL (12.0-15.0); Mean Corpuscular HGB Conc 28.1 g/dl (32-36); Mean Corpuscular Hemoglobin 20.2 pg (26-34); Mean Corpuscular Volume 72.1 fl (80-100); Mean Platelet Volume 8.7 fl (7.4-10.4); Platelet Count Result 360 k/mm3 (150-375); White Blood Count 6.5 K/mm3 (4.5-10.0)
[2020-03-28 05:59] LABS: Potassium 4.1 mmol/L (3.4-5.0)
[2020-03-28 06:00] VITALS: BP 92/50; PULSE 85; RESP 16; TEMP 36.5; O2SAT 100
[2020-03-28 06:03] LABS: Rheumatoid Factor < 8.6 IU/ML (<12)
[2020-03-28 06:25] LABS: Anion Gap 1 mmol/L (8-16); Blood Urea Nitrogen 13 mg/dL (7-17); CRP 7.8 mg/dL (<1.0); Calcium 8.1 mg/dL (8.4-10.2); Carbon Dioxide 30 mmol/L (22-30); Chloride 108 mmol/L (98-107); Estimated Glomerular Filt Rate > 60; Glucose 107 mg/dL (65-105); Magnesium 1.6 mg/dL (1.6-2.3); Sodium 139 mmol/L (137-145)
[2020-03-28 06:32] LABS: Atypical Lymphocytes Present; Basophils Absolute Manual 0.13 K/mm3 (0.0-0.1); Basophils Percent Manual 2 % (0-1); Eosinophils Absolute Manual 0.19 K/mm3 (0.02-0.5); Eosinophils Percent Manual 3 % (0-4); Lymphocytes Absolute Manual 1.82 K/mm3 (1.1-4.5); Monocytes Absolute Manual 0.19 K/mm3 (0.1-0.90); Monocytes Percent Manual 3 % (3-9); Neutrophils Percent Manual 64 % (46-73); Platelet Estimate Adequate (Adequate); Smudge Cells PRESENT; Total Cells Counted 100
[2020-03-28 06:33] LABS: Anisocytosis 1+ (NORMAL); Hypochromasia 1+ (NORMAL); Macrocytosis 1+ (NORMAL); Ovalocytes 1+ (NORMAL); Schistocytes 1+ (NORMAL)
--- NOTE | 2020-03-28 06:39 | PC.NURSE ---
Patient pulled out IV access and a new access was unable to be placed. Rivka was notified. 0600 Ancef unable to be given,MD aware.
[2020-03-28 07:53] VITALS: O2SAT 97
[2020-03-28 08:33] VITALS: PULSE 84
[2020-03-28] MEDS: carvediloL 6.25 MG TABLET PO (08:33)
[2020-03-28] MEDS: PANTOPRAZOLE 40 MG TABLET PO (08:34)
[2020-03-28] MEDS: LATANOPROST 0.005% OP SOLN 2.5 ML BTL 1 DROP EACH EYE (08:34)
[2020-03-28] MEDS: VENLAFAXINE HCL XR 75 MG CAP.ER.24H PO (08:34)
[2020-03-28] MEDS: SACUBITRIL/VALSARTAN 24-26 MG TABLET 1 TAB PO (08:34)
--- NOTE | 2020-03-28 10:03 | PM.PNCARD ---
Progress Note: A&P Assessment and Plan (1) Acute on chronic combined systolic and diastolic congestive heart failure: Code(s): I50.43 - Acute on chronic combined systolic (congestive) and diastolic (congestive) heart failure Status: Acute Assessment and Plan: Patient has history of cardiomyopathy for several years with her ejection fraction ranging from about 40% to 55%. Her echo in January and on this admission shows that her EF has declined, now with an EF of 25-35%, and she presented with active heart failure and volume overload. She has only been on carvedilol recently with therapy limited by hypotension and orthostasis in the past. In addition she says she was not impressed with lisinopril. Cardiac catheterization in 2019 showed no significant coronary disease. Patient has diuresed well with Lasix and lungs sound clear now. Continue Entresto. Continue other regimen. Up titrate as able as an outpatient. (2) Cardiomyopathy: Code(s): I42.9 - Cardiomyopathy, unspecified Status: Inactive Assessment and Plan: Longstanding cardiomyopathy with a decline recently, now EF 25-35%. (3) Aortic insufficiency: Code(s): I35.1 - Nonrheumatic aortic (valve) insufficiency Status: Acute Assessment and Plan: Moderate to severe aortic insufficiency by recent echoes. Murmur is not very prominent. No left ventricular enlargement which usually accompanies severe aortic insufficiency. Could consider further evaluation (niurka? MRI?) Although my index of suspicion for severe aortic insufficiency is low. In addition the patient designated herself as a DNR; she never wants to be on life support again, which may limit aggressive therapeutic options. (4) Mitral regurgitation: Code(s): I34.0 - Nonrheumatic mitral (valve) insufficiency Status: Acute Assessment and Plan: History of mitral regurgitation which also has waxed and waned, moderate to moderately severe by recent echo. (5) Chronic chest pain: Code(s): R07.9 - Chest pain, unspecified; G89.29 - Other chronic pain Status: Acute Assessment and Plan: Patient has chronic chest pain, non ischemic. (6) Iron deficiency anemia: Code(s): D50.9 - Iron deficiency anemia, unspecified Status: Acute Assessment and Plan: Severely iron deficient. May feel better and do better with iron infusions. (7) Hypokalemia: Code(s): E87.6 - Hypokalemia Status: Acute Assessment and Plan: Replaced. Magnesium level was also low and will give her 3 g of IV magnesium Subjective Date/time seen: 03/28/20 10:03 Interval history: 75-year-old female with: History of nonischemic cardiomyopathy being followed previously by Cardiology elsewhere. Admitted to the hospital with clinical diagnosis of cellulitis of the wrist. She was seen in consultation by Dr. Subramanian for her cardiomyopathy because apparently she has not had any regular cardiac follow-up in a while. Patient was maintained on only a modest dose of carvedilol. Entresto at low-dose started yesterday. Follow-up note/ date of service 03/28/2020: Doing well. No chest pain or shortness of breath Review of Systems Constitutional: Constitutional: Reports lethargy and Reports weakness Cardiovascular: Cardiovascular: Reports chest pain, Reports leg edema, Denies lightheadedness, Reports dyspnea and Reports dyspnea on exertion Respiratory: Respiratory: Reports chest congestion, Denies cough, Denies hemoptysis, Reports dyspnea, Reports dyspnea on exertion and Reports wheezing Gastrointestinal: Gastrointestinal: Denies abdominal pain and
[2020-03-28] MEDS: MAGNESIUM SULFATE 3GM/D5W100ML 3 GM/100 ML BAG IVPB (10:30)
--- NOTE | 2020-03-28 13:25 | PM.DS ---
DS: Admitting Diagnosis Admitting Diagnosis Admitting Diagnosis: Left wrist cellulitis DS: Discharge Diagnosis Discharge Diagnosis (1) Acute systolic CHF (congestive heart failure): Code(s): I50.21 - Acute systolic (congestive) heart failure Status: Acute Assessment and Plan: Pts echo 03/22/20 shows an EF of 25-30%. She was previously established with Dr. Stone. Echo from Dr. Stone's office 01/2020 showed moderate global hypokinesis with EF 35%, mild MR, and moderate AI. She had cardiac cath 10/2018 showing no [place] [address] with pleural effusions on CTA. She received IV lasix with improvement. She expressed interested in seeing a new roller printer, therefore Dr. Subramanian was consulted and followed patient during admission. She will follow up as an outpatient. She was initiated on Entresto which was uptitrated to 24/26mg. Continue carvedilol. Discussed heart healthy diet and monitoring daily weights. (2) Cellulitis: Code(s): L03.90 - Cellulitis, unspecified Status: Acute Assessment and Plan: Left wrist. Plain films demonstrated no osseous abnormality. Uric acid is normal. Blood cultures were negative. She remained afebrile and did not develop leukocytosis. CRP improved. She did endorse pain in the wrist with mild swelling. Ultrasound of wrist performed demonstrated nonspecific cellulitis with subcutaneous edema. No evidence of effusion or fluid collection. She received IV Ancef and will continue PO Keflex as an outpatient to complete 7 days of antibiotic therapy. Overall her cellulitis resolved and upon my initial exam on 03/28/20, she had no erythema, warmth, or tenderness. (3) Chest pain: Qualifiers: Chest pain type: unspecified Qualified Code(s): R07.9 - Chest pain, unspecified Code(s): R07.9 - Chest pain, unspecified Status: Acute Assessment and Plan: Chest CTA negative for PE. She had a cardiac cath 10/2018 showing no significant coronary disease. Troponin negative x3 and pain felt non-ischemic. She was seen by cardiology. She did not have any additional episodes of chest pain and no further intervention felt to be required. (4) Anemia requiring transfusions: Code(s): D64.9 - Anemia, unspecified Status: Acute Assessment and Plan: Hgb 6.9 the morning of 03/24 and she was transfused 1 unit pRBC to stable hemoglobin. She has a hx of pernicious anemia and has not been getting B12 injections however B12 is sufficient. She does not tolerate oral iron but she is iron deficient. Last colonoscopy was 3-[address] Ritchie per patient. She needs to have this repeated outpatient given iron deficiency and anemia. She states she requires routine transfusions. Stool occult blood testing negative. She needs to follow up with PCP to arrange outpatient IV iron infusions. 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 Ritchie in the past but does not know when last EGD was. Continue protonix. She will need to follow-up with Dr. Ritchie outpatient for repeat EGD (6) Depression: Qualifiers: Depression Type: major depressive disorder Major depression recurrence: recurrent Active/Remission status: currently active Major depression episode severity: moderate Qualified Code(s): F33.1 - Major depressive disorder, recurrent, moderate Code(s): F32.9 - Major depressive disorder, single episode, unspecified Status: Acute Assessment and Plan: Chronic. Continue venlafaxine. Mood was stable. (7) Pleural effusion: Code(s): J90 - Pleural effusion, not elsewhere classified Status: Acute Assessment and Plan: Seen on CT, felt to be most likely due to CHF. She was diuresed with Lasix and appeared euvolemic fol
== END 2020-03-28 13:45 | disposition home health service (06) | DRG 602 ==
LOC: ANHED 17:38 → ANH3MEDSUR 19:56 → ANHIMU 22:10 → ANH3MED 03-22 20:34
PROVIDERS: Emergency Medicine; Internal Medicine; Physician Assistant; Admitting Provider Family Medicine; Emergency Provider Emergency Medicine; PCP Emergency Medicine; Visit Provider Physician Assistant
DX: L03.114 Cellulitis of left upper limb (principal); I50.21 Acute systolic (congestive) heart failure; F33.1 Major depressive disorder, recurrent, moderate; I42.8 Other cardiomyopathies; I08.0 Rheumatic disorders of both mitral and aortic valves; E87.6 Hypokalemia; R07.89 Other chest pain; G89.29 Other chronic pain; K21.9 Gastro-esophageal reflux disease without esophagitis; K59.00 Constipation, unspecified; E03.9 Hypothyroidism, unspecified; D50.9 Iron deficiency anemia, unspecified; D51.0 Vitamin B12 deficiency anemia due to intrinsic factor deficiency; L29.9 Pruritus, unspecified; Z66 Do not resuscitate; Z28.21 Immunization not carried out because of patient refusal; Z79.899 Other long term (current) drug therapy; Z86.12 Personal history of poliomyelitis; Z87.891 Personal history of nicotine dependence
CPT/HCPCS: 36415; 36430; 70450; 71046; 71275; 73110; 73130; 76882; 80048; 82274; 82607; 82728; 82746; 83540; 83550; 83735; 83880; 84100; 84132; 84443; 84466; 84484; 84550; 85025; 85027; 85380; 85610; 85652; 85730; 86140; 86430; 86850; 86900; 86901; 86920; 87040; 93005; 93306; 96365; 96366; 96367; 96375; 97110; 97116; 97161; 97166; 97530; 99285; A9270; G0378; J0690; J1650; J1940; J2060; J2270; J2405; J3370; J3475; J3480; J7050; P9016; Q9967

== ENCOUNTER 2020-03-31 15:12 | Observation (INO) | payer OTHER, MEDICAID, SELFPAY ==
[2020-03-31] VITALS (7 sets, daily range): BP systolic 111–133; BP diastolic 54–98; PULSE 94–103; RESP 16–20; TEMP 35.9–36.6; O2SAT 91–100
--- NOTE | ~2020-03-31 | XR_ITS ---
EXAMINATION: XR chest 2V DATE: 03/31/2020 15:45 INDICATION: Midsternal chest pain. Congestive heart failure. TECHNIQUE: frontal and lateral views of the chest were obtained. COMPARISON: Chest radiograph and CT dated 03/21/2020 FINDINGS: Opacities in the bilateral lower lung zones with blunting at the costophrenic angles and posterior gilbert lci. No pneumothorax. Cardiomegaly. Bilateral breast implants with peripheral calcification. Thoracol umbar dextroscoliosis with moderate spondylosis. IMPRESSION: 1. Small bilateral pleural effusions. 2. Opacities in the posterior lower lung zones which could represent associated atelectasis, mild pul monary edema or pneumonia. 3. Cardiomegaly. Reviewed, dictated and finalized at location A. O LAB TECHNICIAN IMPRESSION: 1. Small bilateral pleural effusions. 2. Opacities in the posterior lower lung zones which could represent associated atelectasis, mild pulmonary edema or pneumonia. 3. Cardiomegaly.
--- NOTE | 2020-03-31 15:24 | ECG_ITS ---
Measurements Intervals [place] Rate: 88 P: 112 [place]: 162 QRS: -52 QRSD: 102 T: -35 QT: 222 QTc: 270 Interpretive Statements SINUS RHYTHM POSSIBLE LEFT ATRIAL ENLARGEMENT LEFT AXIS DEVIATION BORDERLINE R WAVE PROGRESSION, ANTERIOR LEADS BORDERLINE T WAVE ABNORMALITY- ANT/INF LEADS BASELINE ARTIFACT- I, III, AVR, AVL, AVF, V1-V6 BORDERLINE ECG Electronically Signed On 03-31-2020 15:45:09 [employer] PENCILS REPAIRER by Kenroy Solis D.O.
[2020-03-31 16:04] LABS: Basophils Absolute Auto 0.1 K/mm3 (0.0-0.1); Basophils Percent Auto 1.6 % (0.2-1.2); Hemoglobin 8.7 g/dL (12.0-15.0); Immature Granulocyte Absolute 0.01 K/mm3 (0.00-0.031); Immature Granulocyte Percent A 0.1 % (0-0.5); Lymphocytes Absolute Auto 2.15 K/mm3 (0.9-3.2); Lymphocytes Percent Auto 30.3 % (18.3-44.2); Mean Corpuscular HGB Conc 28.1 g/dl (32-36); Mean Corpuscular Hemoglobin 20.5 pg (26-34); Mean Corpuscular Volume 73.1 fl (80-100); Monocytes Absolute Auto 0.8 K/mm3 (0.1-0.6); Monocytes Percent Auto 11.6 % (2.6-8.5); Neutrophils Percent Auto 56.4 % (45.5-73.1); Platelet Count Result 560 k/mm3 (150-375); Red Blood Count 4.24 M/mm3 (4.2-5.4); Red Cell Distribution Width 25.1 % (11.5-14.5); White Blood Count 7.1 K/mm3 (4.5-10.0)
[2020-03-31 16:14] LABS: INR 1.1; Prothrombin Time 14.8 Seconds (11.1-14.7)
[2020-03-31 16:15] LABS: Anion Gap 11 mmol/L (8-16); Blood Urea Nitrogen 12 mg/dL (7-17); Calcium 8.8 mg/dL (8.4-10.2); Carbon Dioxide 24 mmol/L (22-30); Chloride 105 mmol/L (98-107); Estimated Glomerular Filt Rate > 60; Glucose 100 mg/dL (65-105); Partial Thromboplastin Time 31.2 SECONDS (22.3-36.8); Potassium 3.8 mmol/L (3.4-5.0); Sodium 140 mmol/L (137-145)
[2020-03-31 16:21] LABS: Hypochromasia 1+ (NORMAL); Ovalocytes 1+ (NORMAL); Platelet Estimate Increased (Adequate)
[2020-03-31 16:27] LABS: Troponin I 0.017 ng/mL (0.000-0.034)
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
[2020-03-31 18:32] LABS: NT Pro B Type Natriuretic Pept 15000 PG/ML (5-100)
[2020-03-31] MEDS: LORazepam INJ (*CRX) 2 MG/ML VIAL 1 MG IV PUSH (18:44)
--- NOTE | 2020-03-31 20:56 | ADMGEN ---
This patient, Gianna Miranda, was admitted to IMU Room 205-01 on 03/31/20 at 2038. Patient/family oriented to hospital policies and general routines including ID bracelet, bed and alarms, visiting hours, pain management, procedures, bathroom and other care routines, personal items, smoking policy, room service/diet, and visiting hours. Information on how to activate the Rapid Response Team has been discussed. Patient/Family are encouraged to report perceived risks to care and to ask questions if they do not understand what they are told or what they should do.
--- NOTE | 2020-03-31 21:30 | PM.IMHP ---
H&P: HPI History of Present Illness Date/Time: 03/31/20 21:30 Chief Complaint: Chest pain. Narrative: This a 75-year-old female with congestive heart failure with a recent ejection fraction of 25 to 30%, valvular heart disease, chronic nonischemic chest pain, post-polio syndrome, chronic iron deficiency anemia intolerant to oral supplementation, hypothyroidism, GERD, and depression who presented to the emergency department earlier today via EMS with complaints of chest pain. She is known to the hospitalist service with a recent admission for acute on chronic systolic congestive heart failure as well as cellulitis of the wrist. She was seen in consultation by the [facility] cardiology group, and she was diuresed and started on Entresto before discharge. Discharged on cephalexin to finish treatment for her wrist cellulitis. She lives in her own apartment and has 22 hours of help a week. Today her helper did not show up and this caused the patient quite a bit of stress, as she has been having increasing difficulties using her upper extremities to grab things off the counter or even feed herself due to post-polio syndrome. In fact she perseverates on this for upwards of 20 minutes during our conversation, and was difficult to redirect. When she gets anxious she will put her hand to her chest and reports feeling a pressure sensation in the midsternal region associated with shortness of breath. She is worried about returning home as she has gotten progressively more weak, and is not certain she will be able to do well by herself. Today she was actually meeting with an occupational therapist, and she is hoping to have PT/OT at home or even inpatient rehab. At the time of my evaluation she has no active chest pain. Review of Systems Review of Systems: Narrative: Twelve systems were reviewed. No fever, chills, or sweats. She denies recent cold and flu symptoms. As mentioned above she has frequent tight or squeezing midsternal chest pain, typically every day, it seems to be related to anxiety. Her symptoms do improve with slow deep breaths however she has been asking on occasion for benzodiazepines as well. She has gotten progressively more weak over the years due to polio, and is essentially wheelchair-bound but is able to transfer to bed, chairs, and the toilet. She has a history of falls, last being about a month ago. No vomiting, diarrhea, or dysuria. She denies lower extremity edema, orthopnea, and PND. Except as documented, all other systems were reviewed and are negative. [facility] Past Medical History Medical History (Updated 04/01/20 @ 00:41 by Joi Lawrence PA-C) Aortic insufficiency Moderate to severe by recent echocardiogram. Barretts esophagus Cardiomyopathy Most recent ejection fraction of 25 to 35%. Started on Entresto in March 2020. Chronic anemia Chronic chest pain Nonischemic in etiology. Combined systolic and diastolic congestive heart failure Depression with anxiety Gastroesophageal reflux disease History of pelvic fracture History of poliomyelitis History of shingles Hypothyroidism Iron deficiency anemia Intolerant oral supplementation. Mild coronary artery disease Cardiac catheterization in October 2018 at [facility] showed 40% ostial diagonal stenosis. Mitral regurgitation Moderate to moderately severe by recent echo. Osteoporosis Post-polio syndrome Amaya-Hugo syndrome Surgical History Surgical History (Updated 04/01/20 @ 00:32 by Joi Lawrence PA-C) History of ankle fusion Bilateral. History of bilateral cataract extraction History of hip surgery ORIF right hip fracture. History of hysterectomy History of shoulder surgery Left shoulder surgery with rotator cuff repair. Family History Family History Grandparent Diabetes mellitus FH: brain aneurysm Mother Hypertension Motor vehicle accident Cause of deat
[2020-03-31 22:40] LABS: Troponin I 0.021 ng/mL (0.000-0.034)
[2020-04-01] VITALS (11 sets, daily range): BP systolic 99–139; BP diastolic 55–71; PULSE 87–113; RESP 16–26; TEMP 36.1–36.9; O2SAT 96–100
[2020-04-01 01:41] LABS: Alanine Aminotransferase 13 U/L (4-35); Albumin Level 3.2 g/dL (3.5-5.1); Alkaline Phosphatase 85 U/L (38-126); Anion Gap 7 mmol/L (8-16); Aspartate Amino Transferase 22 U/L (14-36); Bilirubin,Total 0.5 mg/dL (0.2-1.3); Blood Urea Nitrogen 16 mg/dL (7-17); Calcium 8.7 mg/dL (8.4-10.2); Carbon Dioxide 25 mmol/L (22-30); Chloride 109 mmol/L (98-107); Estimated Glomerular Filt Rate > 60; Glucose 104 mg/dL (65-105); Potassium 3.7 mmol/L (3.4-5.0); Sodium 141 mmol/L (137-145)
[2020-04-01 01:53] LABS: Troponin I 0.019 ng/mL (0.000-0.034)
[2020-04-01 02:17] LABS: Iron 33 ug/dL (37-170)
[2020-04-01 02:27] LABS: Percent Iron Saturation 8 % (20-50)
[2020-04-01 02:47] LABS: Folic Acid 13.9 ng/mL (2.76->20)
[2020-04-01] MEDS: LEVOTHYROXINE SODIUM 50 MCG TABLET PO (06:09)
[2020-04-01 10:39] LABS: Hematocrit 29.6 % (37.0-47.0); Hemoglobin 8.3 g/dL (12.0-15.0); Mean Corpuscular Hemoglobin 20.1 pg (26-34); Mean Corpuscular Volume 71.7 fl (80-100); Mean Platelet Volume 9.2 fl (7.4-10.4); Platelet Count Result 570 k/mm3 (150-375); Red Blood Count 4.13 M/mm3 (4.2-5.4); Red Cell Distribution Width 25.2 % (11.5-14.5); White Blood Count 6.7 K/mm3 (4.5-10.0)
[2020-04-01] MEDS: carvediloL 6.25 MG TABLET PO (11:14)
[2020-04-01] MEDS: VENLAFAXINE HCL XR 75 MG CAP.ER.24H PO (11:14)
[2020-04-01] MEDS: PANTOPRAZOLE 40 MG TABLET PO (11:15)
[2020-04-01] MEDS: SACUBITRIL/VALSARTAN 24-26 MG TABLET 1 TAB PO (11:15)
--- NOTE | 2020-04-01 14:04 | PM.CNCAR ---
Assessment and Plan Assessment and plan (1) Chest pain: Qualifiers: Chest pain type: unspecified Qualified Code(s): R07.9 - Chest pain, unspecified Code(s): R07.9 - Chest pain, unspecified Status: Acute Assessment and Plan: Long history of chest pain associated with anxiety. Troponins are normal, EKG normal. Cardiac catheterization in 2019 showed no significant disease. This chest pain appears to be related to anxiety. Reassurance provided to the patient. (2) Combined systolic and diastolic congestive heart failure: Code(s): I50.40 - Unspecified combined systolic (congestive) and diastolic (congestive) heart failure Status: Acute Assessment and Plan: EF runs about 35%. Tolerating Entresto and carvedilol. Still volume overloaded with pleural effusions. Start furosemide 40 mg daily for week then 20 mg daily. (3) Cardiomyopathy: Code(s): I42.9 - Cardiomyopathy, unspecified Status: Acute Assessment and Plan: Cardiomyopathy of recent onset, EF about 35%. (4) Aortic insufficiency: Code(s): I35.1 - Nonrheumatic aortic (valve) insufficiency Status: Acute Assessment and Plan: Varying degrees of aortic and mitral insufficiency noted on recent echoes, will continue to follow as an outpatient (5) Mitral regurgitation: Code(s): I34.0 - Nonrheumatic mitral (valve) insufficiency Status: Acute Assessment and Plan: As above (6) Anxiety: Code(s): F41.9 - Anxiety disorder, unspecified Status: Acute Assessment and Plan: On a small dose of Seroquel. Follow-up with Dr. Blas for further management. Reassurance. History of Present Illness History of Present Illness Consult date/time: 04/01/20 14:04 Reason For Visit: chest pain, unable to take care of herself Narrative: Gianna Miranda is a 75-year-old female with cardiomyopathy and CHF, who was just discharged on March 28 after admission for CHF. I was asked to see her at the request of the hospitalist for my advice and opinion regarding her chest pain in consultation. She also has a history of mitral and aortic insufficiency which have improved by her recent catheterization, chronic chest pain, polio, and anxiety Patient has history of cardiomyopathy for several years with her ejection fraction ranging from about 40% to 55%. Her echo in January and on the previous admission in March shows that her EF has declined, now with an EF of 25-35%, and she presented with active heart failure and volume overload at that time. She has only been on carvedilol recently with therapy limited by hypotension and orthostasis in the past. In addition she says she was not impressed with lisinopril. Cardiac catheterization in 2018 showed no significant coronary disease. She wanted change cardiologists and hospitals, so when she had CHF earlier this month she came to [facility] where we met. Patient was diuresed last hospitalization and started on Entresto, with improvement. Discharged without a diuretic because of concerns of low blood pressure. See previous notes last admission for full details. The patient went home with home health care, and yesterday while working with occupational therapy found that 1 of her helpers adequate. She says she did not take this very well and had ?a spell.? She became extremely anxious, could not breathe and had 8-9/10 hard chest pain which was a squeezing feeling. She has had this in the past year usually associated with stress. She does not think this is an anxiety attack. In general she still has dyspnea with minor exertion. Patient has a history of anxiety but complains that no one will treat it. She was taking temazepam q.h.s. kay
--- NOTE | 2020-04-01 15:47 | PM.DS ---
DS: Admitting Diagnosis Admitting Diagnosis Admitting Diagnosis: chest pain DS: Discharge Diagnosis Discharge Diagnosis (1) Chronic chest pain: Code(s): R07.9 - Chest pain, unspecified; G89.29 - Other chronic pain Status: Acute Assessment and Plan: She endorsed a pressure sensation in the midsternal region with associated shortness of breath that occurred at the onset of an anxious episode when her home health worker did not show up to her home. She has a history of chest pain associated with anxiety. Troponins negative. EKG normal. She had a cardiac catheterization in 2019 with no significant disease. She was seen in consultation by Cardiology and reassurance was provided. She will need to proceed with scheduled outpatient cardiology follow-up. (2) Anxiety: Code(s): F41.9 - Anxiety disorder, unspecified Status: Acute Assessment and Plan: As noted above, she became very anxious and distressed when her healthcare worker did not show up to her home. She was provided with reassurance. She is on venlafaxine and low-dose Seroquel which should be continued. She will need primary care follow-up. (3) Chronic anemia: Code(s): D64.9 - Anemia, unspecified Status: Acute Assessment and Plan: she has chronic anemia which was addressed at her last hospitalization just several days ago. She does not tolerate PO iron supplementation and will need to follow-up as an outpatient as she will benefit from IV iron infusions. H&H remained consistent with prior labs. Vital signs are stable and she had no evidence of active bleeding. (4) Combined systolic and diastolic congestive heart failure: Code(s): I50.40 - Unspecified combined systolic (congestive) and diastolic (congestive) heart failure Status: Acute Assessment and Plan: Recently addressed by Cardiology at last hospitalization 4 days prior. She was diuresed with IV Lasix and started on Entresto. her most recent echo showed EF of about 35%. Chest x-ray upon evaluation did show small bilateral pleural effusions most likely related to CHF. She was seen in cardiology and will begin taking p.o. Lasix 40 mg daily x7 days and then 20 mg daily thereafter. Heart healthy diet discussed. Encouraged monitoring of daily weights. Continue Entresto and carvedilol. (5) Hypothyroidism: Code(s): E03.9 - Hypothyroidism, unspecified Status: Acute Assessment and Plan: TSH within normal limits. Continue levothyroxine. (6) Post-polio syndrome: Code(s): G14 - Postpolio syndrome Status: Inactive Assessment and Plan: Resulting in limitations in functional status. She does have a home health worker for who provides care about 22 hours per week. She ambulates with crutches or uses a wheelchair. She was evaluated by PT / OT during her stay and felt to be consistent with her baseline functional level. She is current with home health. DS: Summary Hospital Course Reason for hospitalization: Chest pain Hospital Course: date of admission: 03/31/2020 date of discharge: 04/01/2020 Gianna Miranda is a 75-year-old female with congestive heart failure with a recent ejection fraction of 25 to 30%, valvular heart disease, chronic nonischemic chest pain, post-polio syndrome, chronic iron deficiency anemia intolerant to oral supplementation, hypothyroidism, GERD, and depression, known to me from recent hospitalization 03/28/20 for left wrist cellulitis, who presented to the emergency department on 03/31/2020 via ambulance with complaints of centralized squeezing chest pain ongoing approximately 2 hours with minimal improvement following nitroglycerin. She noted that she was feeling very anxious and distressed because one of her home health workers abruptly quit and did not show up to assist her. Upon presentation to the emergency department, her vital signs were stable, H&H slightly decreased,
--- NOTE | 2020-04-01 17:43 | PCDIET ---
Patient discharged to home. Alert & oriented x4, vs stable, no complaints of chest pain/shortness of breath at this time. Patient left floor with hospital staff via wheelchair. Patient will travel home via [employer], and will be bet by family friend upon arrival home.
--- NOTE | 2020-04-01 17:46 | PC.NURSE ---
Patient discharged to home, alert and oriented x4. No complaints of shortness of breath/chest pain at this time. Patient left floor with staff via wheelchair. Patient will travel home with [employer], and will be met by a family friend upon arrival at her residence.
== END 2020-04-01 17:42 | disposition home health service (06) ==
LOC: ANHED 19:20 → ANHIMU 20:19
PROVIDERS: Emergency Medicine; Physician Assistant; Admitting Provider Family Medicine; Emergency Provider Emergency Medicine; PCP Emergency Medicine; Visit Provider Internal Medicine
DX: R07.9 Chest pain, unspecified (principal); R06.02 Shortness of breath; I11.0 Hypertensive heart disease with heart failure; I42.9 Cardiomyopathy, unspecified; I08.0 Rheumatic disorders of both mitral and aortic valves; I50.40 Unspecified combined systolic (congestive) and diastolic (congestive) heart failure; D64.9 Anemia, unspecified; E03.9 Hypothyroidism, unspecified; F41.9 Anxiety disorder, unspecified; G14 Postpolio syndrome; Z87.891 Personal history of nicotine dependence
CPT/HCPCS: 36415; 71046; 80048; 80053; 82607; 82728; 82746; 83540; 83550; 83880; 84443; 84484; 85025; 85027; 85610; 85730; 93005; 96374; 96375; 97161; 97165; 99285; A9270; G0378; J0131; J2060

== ENCOUNTER 2020-04-04 11:59 | Outpatient (NON) | payer OTHER, SELFPAY ==
[2020-04-04 12:20] LABS: Potassium 3.8 mmol/L (3.4-5.0)
== END 2020-04-04 12:00 ==
PROVIDERS: PCP Emergency Medicine; Visit Provider Emergency Medicine
DX: I50.43 Acute on chronic combined systolic (congestive) and diastolic (congestive) heart failure (principal); D64.9 Anemia, unspecified; F33.1 Major depressive disorder, recurrent, moderate; L03.114 Cellulitis of left upper limb; E87.6 Hypokalemia
CPT/HCPCS: 84132

== ENCOUNTER 2020-07-14 22:00 | Inpatient (IN) | payer OTHER, SELFPAY ==
[2020-07-14] VITALS (7 sets, daily range): BP systolic 119–144; BP diastolic 36–83; PULSE 57–83; RESP 14–23; TEMP 36.6; O2SAT 98–100
--- NOTE | 2020-07-14 22:14 | ECG_ITS ---
Measurements Intervals [place] Rate: 57 P: 76 KS: 152 QRS: -26 QRSD: 96 T: -45 QT: 435 QTc: 426 Interpretive Statements SINUS BRADYCARDIA WITH SINUS ARRHYTHMIA DELAYED PRECORDIAL R/S TRANSITION ST-T WAVE ABNORMALITY IN ANTEROLATERAL LEADS- CONSIDER ISCHEMIA BASELINE ARTIFACT- II, III, AVF ABNORMAL ECG Electronically Signed On 07-15-2020 7:48:29 CDT by eKnroy Solis D.O.
[2020-07-14] MEDS: LACTATED RINGERS 1,000 ML 999 ML IV CONT (22:47)
--- NOTE | 2020-07-14 22:54 | ED.NAVMDI ---
HPI - Nausea/Vomiting/Diarrhea General Chief complaint: Nausea/Vomiting/Diarrhea Stated complaint: n/v Time Seen by Provider: 07/14/20 22:02 Source: patient Mode of arrival: EMS Limitations: no limitations History of Present Illness HPI Narrative: 75-year-old female Remote history of polio and some chronic medical problems attendent to that Complains of a 1 day history of having several episodes of nausea and vomiting and a couple of loose diarrheal stools, no melena No fever, no abdominal pain, no urinary symptoms, no blood in the stools, described the emesis is brownish Last episode about 90 minutes ago Received Zofran from EMS and is sipping water now Patient also notes more or less apropos of nothing that since she was on life support last year she feels like her whole body is reset and that if she eats normally she can pass a turd like a normal person and is well that starting Entresto a couple months ago she regards is a miracle drug She did overlook a couple things in discussion of PMH, she has a nonischemic cardiomyopathy with EF ~35% and clean coronaries, and a h/o chronic anemia theoretically due to non-absorption of iron, which has not really been addressed or followed up since last year's ICU stay apparently Related Data Home Medications Medication Instructions Recorded Confirmed latanoprost 0.005 % eye drops 1 drop EACH EYE .COMPLEX 04/15/19 03/31/20 carvedilol 6.25 mg tablet 6.25 mg PO BID 08/11/19 03/31/20 levothyroxine 50 mcg PO DAILY 03/21/20 03/31/20 cetirizine 10 mg tablet 10 mg PO DAILY PRN 05/02/20 Allergies Allergy/AdvReac Type Severity Reaction Status Date / Time lactose AdvReac Mild emesis, Verified 07/14/20 22:12 diarrhea Review of Systems Review of Systems: All systems reviewed & are unremarkable except as noted in HPI and below Constitutional: Constitutional: Reports no additional constitutional complaints, Denies chills, Reports fatigue, Denies fever(s), Denies headache(s) and Reports weakness Eyes: Eyes: Reports no additional eye complaints and Denies change in vision ENT: Denies headache(s) and Denies sore throat Cardiovascular: Cardiovascular: Denies chest pain and Denies dyspnea Respiratory: Respiratory: Denies cough and Denies dyspnea Gastrointestinal: Gastrointestinal: Denies abdominal pain, Reports diarrhea, Reports nausea and Reports vomiting Genitourinary: Genitourinary: Denies urinary frequency, Denies nocturia and Denies dysuria Musculoskeletal: Musculoskeletal: Reports myalgias, Denies deformity, Denies arthralgias, Denies joint swelling, Reports muscle cramps and Denies numbness Integumentary/Breasts: Skin/Breast: Denies rash and Denies wounds Neurologic: Denies headache(s), Denies focal weakness and Denies numbness Psychiatric: Psychiatric: Reports no additional psychiatric complaints Endocrine: Endocrine: Reports no additional endocrine complaints Hematologic/Lymphatic: Hematologic/Lymphatic: Reports no additional hematologic/lymphatic complaints Allergic/Immunologic: Allergic/Immunologic: Reports no additional allergic/immunologic complaints PMFSH Past Medical History Medical History Aortic insufficiency Moderate to severe by recent echocardiogram. Barretts esophagus Cardiomyopathy Most recent ejection fraction of 25 to 35%. Started on Entresto in March 2020. Chronic anemia Chronic chest pain Nonischemic in etiology. Combined systolic and diastolic congestive heart failure Depression with anxiety Gastroesophageal reflux disease History of pelvic fracture History of poliomyelitis History of shingles Hypothyroidism Iron deficiency anemia Intolerant oral supplementation. Mild coronary artery disease Cardiac catheterization in October 2018 at [facility] showed 40% ostial diagonal stenosis. Mitral regurgitation Moderate to moderately severe by recent echo. Os
--- NOTE | 2020-07-14 22:54 | PC.NURSE ---
Called floor for report, nurse unable to get report at this time.
[2020-07-14] MEDS: METOCLOPRAMIDE HCL INJ 10 MG/2 ML VIAL IV PUSH (23:06)
[2020-07-14 23:43] LABS: Anion Gap 9 mmol/L (8-16); Blood Urea Nitrogen 12 mg/dL (7-17); Calcium 7.8 mg/dL (8.4-10.2); Carbon Dioxide 17 mmol/L (22-30); Chloride 112 mmol/L (98-107); Estimated Glomerular Filt Rate > 60; Glucose 93 mg/dL (65-105); Potassium 3.6 mmol/L (3.4-5.0); Sodium 138 mmol/L (137-145)
[2020-07-14 23:48] LABS: Basophils Percent Auto 0.3 % (0.2-1.2); Hematocrit 22.9 % (37.0-47.0); Immature Granulocyte Absolute 0.03 K/mm3 (0.00-0.031); Immature Granulocyte Percent A 0.4 % (0-0.5); Lymphocytes Absolute Auto 0.22 K/mm3 (0.9-3.2); Lymphocytes Percent Auto 3.2 % (18.3-44.2); Mean Corpuscular HGB Conc 29.3 g/dl (32-36); Mean Corpuscular Volume 85.4 fl (80-100); Mean Platelet Volume 8.4 fl (7.4-10.4); Monocytes Absolute Auto 0.3 K/mm3 (0.1-0.6); Monocytes Percent Auto 4.9 % (2.6-8.5); Neutrophils Absolute Auto 6.3 K/mm3 (1.3-6.7); Neutrophils Percent Auto 91.2 % (45.5-73.1); Platelet Count Result 256 k/mm3 (150-375); Red Blood Count 2.68 M/mm3 (4.2-5.4); Red Cell Distribution Width 18.6 % (11.5-14.5); White Blood Count 6.9 K/mm3 (4.5-10.0)
[2020-07-14 23:52] LABS: Hemoglobin 6.7 g/dL (12.0-15.0); Hypochromasia 2+ (NORMAL); Platelet Estimate Adequate (Adequate)
[2020-07-14 23:54] LABS: Add Urine Microscopic? YES; Appearance Urine Clear (Clear); Bilirubin Urine Negative (Negative); Blood Urine Negative (Negative); Color Urine Yellow (Yellow); Glucose Urine UA Negative (Negative); Ketones Urine Negative (Negative); Leukocyte Esterase Ur Negative LEU/UL (Negative); Mucus Urine Rare /lpf; Nitrate Urine Negative (Negative); Protein Urine 2+ mg/dL (Negative); RBC Urine 0-2 /hpf (0-2); Squamous Epithelial Cell Urine Rare /hpf (Few); Urobilinogen Urine Negative mg/dL (<2.0); WBC Urine 0-3 /hpf
[2020-07-15] VITALS (10 sets, daily range): BP systolic 107–128; BP diastolic 46–59; PULSE 62–102; RESP 16–31; TEMP 36.1–36.8; O2SAT 94–99; BMI 17.7
[2020-07-15] MEDS: LACTATED RINGERS 1,000 ML 50 ML IV CONT (00:39)
[2020-07-15] MEDS: PANTOPRAZOLE SODIUM IV 40 MG VIAL 80 MG IV PUSH (00:39)
--- NOTE | 2020-07-15 01:30 | PM.IMHP ---
H&P: HPI History of Present Illness Date/Time: 07/15/20 01:30 Chief Complaint: nausea, vomiting, diarrhea Narrative: 75 yo female who present with one day hisotyr of several episdoes of nausea, vomiting and copule of loose diarrhea, no melena or hematochezia. she has intermittnet problems with this is what se rpeorts. received zofran and feelign better. she denies any abodminal pain. no urinary symptoms. she has chronic medical problems with non ischemic cardiomyopathy with EF ~ 35% , negative coronary angiogram, hx of chronic anemia, with pernicious anemia supposed to be on vitmani b12 injection but not taking it as it is not covered under her insurance and is expensive. she is also intolerant to iron and has not recievd iron infusion in the past. She has post polio weakness which has been chronic. She also reports hx of GERD and reflux esophagitis with stricuture in the past. She rpeorts workup for anemia with colonoscpy and egd in the past which did not reveal any bleeidng. FOBT done in 03/2020 was negative as well. She is noted to ahve hb of 6.7 today in the ED. she reporrts that her hb was 10 back a month ago when she saw her pscyhiatrist. She reports hx of cardiac arrest and was successfully resuscitated couple of years ago. Review of Systems Review of Systems: Narrative: - CONSTITUTIONAL: Denies weight loss, fever and chills. - HEENT: Denies changes in vision and hearing - RESPIRATORY: Denies SOB and cough. - CV: Denies palpitations and CP. - GI: Denies abdominal pain, reports nausea, vomiting and diarrhea. - : Denies dysuria and urinary frequency. - MSK: Denies myalgia and joint pain. - SKIN: Denies rash and pruritus. - NEUROLOGICAL: Denies headache and syncope. - PSYCHIATRIC: Denies recent changes in mood. Denies anxiety and depression. All systems reviewed & are unremarkable except as noted in HPI and below PMFSH Past Medical History Medical History Aortic insufficiency Moderate to severe by recent echocardiogram. Barretts esophagus Cardiomyopathy Most recent ejection fraction of 25 to 35%. Started on Entresto in March 2020. Chronic anemia Chronic chest pain Nonischemic in etiology. Combined systolic and diastolic congestive heart failure Depression with anxiety Gastroesophageal reflux disease History of pelvic fracture History of poliomyelitis History of shingles Hypothyroidism Iron deficiency anemia Intolerant oral supplementation. Mild coronary artery disease Cardiac catheterization in October [address] [facility] showed 40% ostial diagonal stenosis. Mitral regurgitation Moderate to moderately severe by recent echo. Osteoporosis Post-polio syndrome Amaya-Hugo syndrome Surgical History Surgical History History of ankle fusion Bilateral. History of bilateral cataract extraction History of hip surgery ORIF right hip fracture. History of hysterectomy History of shoulder surgery Left shoulder surgery with rotator cuff repair. Family History Family History Grandparent Diabetes mellitus FH: brain aneurysm Mother Hypertension Motor vehicle accident Cause of . Patient's mother when patient was 10 years old Social History Social History Social History: The patient lives in her own apartment in [place]. She is . She and her (now ) and lives in an apartment. They had 2 daughters, both whom are (1 was killed by straight gun fire, and the other ?because of poor lifestyle choices?). 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 She smoked a pack of cigarettes per day for about 32 years and quit in 2008. She denies alcohol and illicit substance abuse. She designates her n
[2020-07-15 01:31] LABS: Hemoglobin 9.4 g/dL (12.0-15.0)
--- NOTE | 2020-07-15 01:39 | ADMGEN ---
This patient, Gianna Miranda, was admitted to Medical Room 258-. Patient/family oriented to hospital policies and general routines including ID bracelet, bed and alarms, visiting hours, pain management, procedures, bathroom and other care routines, personal items, smoking policy, room service/diet, and visiting hours. Information on how to activate the Rapid Response Team has been discussed. Patient/Family are encouraged to report perceived risks to care and to ask questions if they do not understand what they are told or what they should do.
[2020-07-15 02:40] LABS: Hemoglobin 9.4 g/dL (12.0-15.0)
[2020-07-15 05:45] LABS: Hematocrit 32.9 % (37.0-47.0)
[2020-07-15 06:09] LABS: Alanine Aminotransferase 11 U/L (4-35); Albumin Level 3.4 g/dL (3.5-5.1); Alkaline Phosphatase 90 U/L (38-126); Aspartate Amino Transferase 24 U/L (14-36); Bilirubin,Total 0.3 mg/dL (0.2-1.3)
[2020-07-15] MEDS: LEVOTHYROXINE SODIUM 50 MCG TABLET PO (06:10)
[2020-07-15 06:49] LABS: Iron 21 ug/dL (37-170)
[2020-07-15 06:58] LABS: Percent Iron Saturation 7 % (20-50)
--- NOTE | 2020-07-15 08:26 | PM.IMPN ---
Progress Note: A&P Additional Plan # nausea, vomiting diarrhea: abdominal exam benign. improved with symptomatic treatment. continue to monitor. add loperamide prn. # Severe anemia hb o of 6.7. transfuse one unit prbc. no signs of bleeding. GI consultation. PPI. hb likely erroneuos. repeat was 9.4 and has remained stable. iron deficiency noted. will give iron infusion. gi workup as op basis. # Chronic systolic CHF: Echo 04/02 with EF 25-30%. on entresto, carvedilol and lasix. continue same. well compensated. # non ischemic cardiomyopathy Cath 2019 was negative. # moderate to severe aortic insufficiency/moderate to severe MR # hx of pernicious anemia needing vit b12 injections. not getting one due to expense per pateint. will check level. # Iron deficiency anemia: intolerant to oral iron. will check levels.if low, will give venofer. gi workup has been done in [facility] but has been many years ago. will consult GI for furthe workup. hematology consulted from ED. hematolgoy can be canelled as well. fu as op basis. will give iv iron # GERD/h xof Sanchez's esophagus: Gi consultation. continue ppi. # Depression; seeing Dr. Gutierrez now more recnetly. contineu venlafaxine. # Hypothyroidism: levothyroxine. # x of polio with postpolio weakness # DVT proph: PAS boots. contraindicated due to anemia. stop ivf. stool studies ordered. loperamide prn. iv iron Subjective Date/time seen: 07/15/20 08:26 Interval history: repeat hb was up to 9.4 without transfusion, ic hws rechecked with repat being at 9.4. no blood loss. she still has some diarrhea ongoing. no fever, chills. she denies any abdominal pain. she tolerated clears and tryingto eat again today. no sob, chest pain. Exam Narrative: Exam Narrative: GENERAL: The patient is well developed, not in acute distress HEENT: Nonicteric sclerae, PERRLA, EOMI. Oropharynx clear. Moist mucous membranes. Conjunctivae appear well perfused. CHEST: Chest wall is nontender. HEART: Regular rate and rhythm without murmur, rubs, or gallops LUNGS: Clear to auscultation bilaterally. no respiratory distress ABDOMEN: Soft, positive bowel sounds, non-tender, no organomegaly. non distended SKIN: No rash, no excessive bruising, petechiae, or purpura. NEUROLOGIC: Cranial nerves II-XII intact, alert and oriented x 3, no gross motor deficits except for chronic post polio weakness and atrophy particularly right lower extermity EXTREMITIES: no edema, cyanosis or clubbing Objective Data Vital Signs Vital Signs: Vital Signs - 24 hr 07/14/20 21:59 07/14/20 22:12 07/14/20 22:15 Temperature 98 F Pulse Rate 57 L 71 60 Respiratory Rate 14 20 21 H Blood Pressure 120/36 L 120/36 L 144/47 H Pulse Oximetry 100 98 07/14/20 22:30 07/14/20 22:42 07/14/20 23:15 Temperature Pulse Rate 70 78 75 Respiratory Rate 23 H 19 18 Blood Pressure 136/47 L 124/83 Pulse Oximetry 99 100 07/14/20 23:45 07/15/20 00:00 07/15/20 00:15 Temperature Pulse Rate 83 90 92 Respiratory Rate 22 H 20 20 Blood Pressure 119/44 L 112/52 L 123/56 L Pulse Oximetry 96 07/15/20 01:20 07/15/20 01:46 07/15/20 04:00 Temperature 97.1 F L 96.9 F L Pulse Rate 99 62 93 Respiratory Rate 31 H 20 18 Blood Pressure 109/59 L 128/46 L 118/50 L Pulse Oximetry 94 99 Intake/Output Intake/Output: Intake & Output 07/12/20 07/13/20 07/14/20 07/15/20 23:59 23:59 23:59 23:59 Intake Total 1000 160 Output Total 250 Balance 1000 -90 Meds/Results Medications: Active Medications Generic Name Dose Route Start Last Admin Trade Name Freq PRN Reason Stop Dose Admin Acetaminophen 650 mg 07/15/20 00:23 Acetaminophen 325 Mg Tablet PO Q4H PRN Mild Pain (1-3) or Fever Albuterol 2 puff 07/15/20 02:27 Albuterol Sulfate (*Sp) Aerosol 1 Puff INHALATION Q4-6H PRN shortness of breath or wheezing Buspirone HCl 2.5 mg 07/15/20 09:00 Buspirone Hcl 2.5 Mg Tablet PO BID KHUSHBU Buspirone HCl 5 mg 07/15/20 09:00
[2020-07-15] MEDS: busPIRone HCL 2.5 MG TABLET PO ×2 (09:10→16:49)
[2020-07-15] MEDS: carvediloL 6.25 MG TABLET PO ×2 (09:11→16:48)
[2020-07-15] MEDS: ESCITALOPRAM OXALATE 10 MG TABLET PO (09:11)
[2020-07-15] MEDS: LORATADINE 10 MG TABLET PO (09:11)
[2020-07-15] MEDS: VENLAFAXINE HCL XR 75 MG CAP.ER.24H PO (09:11)
[2020-07-15] MEDS: POTASSIUM CHLORIDE 10 MEQ TABLET.ER PO ×2 (09:11→16:49)
[2020-07-15] MEDS: SACUBITRIL/VALSARTAN 24-26 MG TABLET 1 TAB PO ×2 (09:11→20:36)
[2020-07-15] MEDS: busPIRone HCL 5 MG TABLET PO ×2 (09:12→16:48)
[2020-07-15] MEDS: PANTOPRAZOLE SODIUM IV 40 MG VIAL IV PUSH (09:12)
[2020-07-15] MEDS: LOPERAMIDE HCL 2 MG CAPSULE PO ×3 (09:15→16:47)
[2020-07-15] MEDS: IRON SUCROSE COMPLEX 200 MG in SODIUM CHLORIDE 0.9% IV 50 ML 120 MG IVPB (09:19)
[2020-07-15 12:33] LABS: IFOB Positive Control Positive; Immunochemical Fecal Occult Bl Positive (N)
[2020-07-15] MEDS: QUEtiapine FUMARATE 25 MG TABLET PO (20:36)
[2020-07-15] MEDS: LATANOPROST 0.005% OP SOLN 2.5 ML BTL 1 DROP EACH EYE (20:36)
[2020-07-15] MEDS: TEMAZEPAM (*CRX) 15 MG CAPSULE PO (20:40)
[2020-07-16] VITALS (9 sets, daily range): BP systolic 115–125; BP diastolic 43–76; PULSE 76–97; RESP 16–18; TEMP 36.2–37; O2SAT 98–100
[2020-07-16 05:34] LABS: Basophils Percent Auto 0.2 % (0.2-1.2); Hemoglobin 11.1 g/dL (12.0-15.0); Immature Granulocyte Absolute 0.02 K/mm3 (0.00-0.031); Immature Granulocyte Percent A 0.4 % (0-0.5); Lymphocytes Absolute Auto 0.54 K/mm3 (0.9-3.2); Lymphocytes Percent Auto 10.7 % (18.3-44.2); Mean Corpuscular HGB Conc 30.8 g/dl (32-36); Mean Corpuscular Hemoglobin 24.9 pg (26-34); Mean Corpuscular Volume 80.7 fl (80-100); Mean Platelet Volume 8.2 fl (7.4-10.4); Monocytes Absolute Auto 0.3 K/mm3 (0.1-0.6); Monocytes Percent Auto 6.7 % (2.6-8.5); Neutrophils Absolute Auto 4.1 K/mm3 (1.3-6.7); Platelet Count Result 303 k/mm3 (150-375); Red Blood Count 4.46 M/mm3 (4.2-5.4); Red Cell Distribution Width 18.8 % (11.5-14.5); White Blood Count 5.1 K/mm3 (4.5-10.0)
[2020-07-16 05:51] LABS: Anion Gap 12 mmol/L (8-16); Blood Urea Nitrogen 12 mg/dL (7-17); Calcium 8.9 mg/dL (8.4-10.2); Carbon Dioxide 21 mmol/L (22-30); Chloride 110 mmol/L (98-107); Estimated Glomerular Filt Rate > 60; Glucose 94 mg/dL (65-105); Magnesium 1.7 mg/dL (1.6-2.3); Potassium 3.2 mmol/L (3.4-5.0); Sodium 143 mmol/L (137-145)
[2020-07-16] MEDS: HYDROcodone/acetaminophen (*CRX) 5-325 MG TABLET 1 TAB PO (05:59)
[2020-07-16] MEDS: LEVOTHYROXINE SODIUM 50 MCG TABLET PO (06:00)
[2020-07-16] MEDS: LOPERAMIDE HCL 2 MG CAPSULE PO (06:43)
[2020-07-16] MEDS: carvediloL 6.25 MG TABLET PO ×2 (08:40→16:56)
[2020-07-16] MEDS: VENLAFAXINE HCL XR 75 MG CAP.ER.24H PO (08:40)
[2020-07-16] MEDS: POTASSIUM CHLORIDE 10 MEQ TABLET.ER PO ×2 (08:40→16:57)
[2020-07-16] MEDS: busPIRone HCL 5 MG TABLET PO ×2 (08:40→16:57)
[2020-07-16] MEDS: SACUBITRIL/VALSARTAN 24-26 MG TABLET 1 TAB PO ×2 (08:40→20:34)
[2020-07-16] MEDS: ESCITALOPRAM OXALATE 10 MG TABLET PO (08:40)
[2020-07-16] MEDS: LORATADINE 10 MG TABLET PO (08:41)
[2020-07-16] MEDS: busPIRone HCL 2.5 MG TABLET PO ×2 (08:41→16:57)
[2020-07-16] MEDS: PANTOPRAZOLE SODIUM IV 40 MG VIAL IV PUSH (08:50)
[2020-07-16] MEDS: POTASSIUM CHLORIDE 20 MEQ TABLET 40 MEQ PO (10:20)
--- NOTE | 2020-07-16 16:26 | PM.IMPN ---
Progress Note: A&P Assessment and Plan (1) Vomiting and diarrhea: Code(s): R11.10 - Vomiting, unspecified; R19.7 - Diarrhea, unspecified Status: Acute (2) Severe anemia: Code(s): D64.9 - Anemia, unspecified Status: Acute (3) CHF (congestive heart failure): Qualifiers: Heart failure type: systolic Heart failure chronicity: chronic Qualified Code(s): I50.22 - Chronic systolic (congestive) heart failure Code(s): I50.9 - Heart failure, unspecified Status: Acute (4) Cardiomyopathy: Code(s): I42.9 - Cardiomyopathy, unspecified Status: Acute (5) Hypothyroidism: Code(s): E03.9 - Hypothyroidism, unspecified Status: Acute (6) Combined systolic and diastolic congestive heart failure: Qualifiers: Heart failure chronicity: chronic Qualified Code(s): I50.42 - Chronic combined systolic (congestive) and diastolic (congestive) heart failure Code(s): I50.40 - Unspecified combined systolic (congestive) and diastolic (congestive) heart failure Status: Acute (7) Chronic anemia: Code(s): D64.9 - Anemia, unspecified Status: Acute (8) Anxiety: Code(s): F41.9 - Anxiety disorder, unspecified Status: Acute (9) Aortic insufficiency: Code(s): I35.1 - Nonrheumatic aortic (valve) insufficiency Status: Acute (10) Mitral regurgitation: Code(s): I34.0 - Nonrheumatic mitral (valve) insufficiency Status: Acute (11) Gastric reflux: Code(s): K21.9 - Gastro-esophageal reflux disease without esophagitis Status: Acute (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 continue on entresto, carvedilol and lasix. monitor # non ischemic cardiomyopathy Cath 2019 was negative # moderate to severe aortic insufficiency/moderate to severe MR # hx of pernicious anemia was receiving vit b12 injections unable to afford b12 wnl # GERD continue ppi # Depression: seeing Dr. Gutierrez now more recently. continue venlafaxine # Hypothyroidism: levothyroxine # hx of polio with postpolio weakness # DVT proph: SINAN teixeira Subjective Date/time seen: 07/16/20 16:26 pt seen and evaluated; seems very depressed; no acute events overnight Review of Systems Review of Systems: All systems reviewed & are unremarkable except as noted in HPI and below Exam Const: General: no acute distress, alert and awake Orientation/consciousness: patient oriented x3 HENMT: Head: normocephalic and atraumatic Ears: hearing grossly normal bilaterally and external ears normal Face and sinus: face symmetric Mouth: Yes Normal oral and palatal mucosa present Eyes: Pupils: Equal, round and reactive pupils present EOM: EOMs intact bilaterally Neck: Neck: full ROM, trachea midline and no JVD Thyroid: thyroid normal Chest: Chest palpation & inspection: normal inspection of the chest Resp: Effort & Inspection: normal respiratory effort Auscultation: clear to auscultation bilaterally Cardio: Jugular venous distension: no JVD Rate: regular rate Rhythm: regular rhythm Heart sounds: S1 normal heart sound present and S2 normal heart sound present GI: Inspection: normal to inspection GI Palp: Yes Soft to palpation Percussion: Yes normal to percussion Auscultation: normal bowel sounds : General: Yes no CVA tenderness Back/Spine/Pelvis: Back: no CVA tenderness Skin: General skin exam: normal color Rashes: no rashes Neuro:
[2020-07-16] MEDS: QUEtiapine FUMARATE 25 MG TABLET PO (20:34)
[2020-07-16] MEDS: TEMAZEPAM (*CRX) 15 MG CAPSULE PO (20:34)
[2020-07-16] MEDS: LATANOPROST 0.005% OP SOLN 2.5 ML BTL 1 DROP EACH EYE (20:35)
[2020-07-17 04:00] VITALS: BP 97/40; PULSE 72; RESP 18; TEMP 36.3; O2SAT 95
[2020-07-17] MEDS: LEVOTHYROXINE SODIUM 50 MCG TABLET PO (05:34)
[2020-07-17 08:16] LABS: Hematocrit 32.4 % (37.0-47.0); Hemoglobin 9.6 g/dL (12.0-15.0)
[2020-07-17 08:37] LABS: Anion Gap 6 mmol/L (8-16); Blood Urea Nitrogen 14 mg/dL (7-17); Calcium 8.6 mg/dL (8.4-10.2); Carbon Dioxide 23 mmol/L (22-30); Chloride 111 mmol/L (98-107); Estimated Glomerular Filt Rate > 60; Glucose 83 mg/dL (65-105); Potassium 4.2 mmol/L (3.4-5.0); Sodium 140 mmol/L (137-145)
[2020-07-17] MEDS: VENLAFAXINE HCL XR 75 MG CAP.ER.24H PO (08:48)
[2020-07-17] MEDS: POTASSIUM CHLORIDE 10 MEQ TABLET.ER PO (08:48)
[2020-07-17] MEDS: ESCITALOPRAM OXALATE 10 MG TABLET PO (08:49)
[2020-07-17] MEDS: busPIRone HCL 2.5 MG TABLET PO (08:49)
[2020-07-17] MEDS: LORATADINE 10 MG TABLET PO (08:49)
[2020-07-17] MEDS: busPIRone HCL 5 MG TABLET PO (08:49)
[2020-07-17] MEDS: PANTOPRAZOLE 40 MG TABLET PO (08:49)
[2020-07-17 08:54] VITALS: PULSE 72; RESP 18; O2SAT 95
--- NOTE | 2020-07-17 10:08 | PCOTNOTE ---
Attempted to see Pt this AM for Occupational Therapy. Pt was strongly verbalized that I am tired of this shit...having to say the same thing to 16 different people. Pt stated that the only thing she is worry about is how she is getting home. When therapist explained that she does not need to be rude to staff, pt apologized and stated that she is just done and I don't know if I can survive in this world anymore. RN was notifed of pt's behavior and refusal. Will continue per POC duration/frequency tomorrow.
[2020-07-17 10:32] VITALS: O2SAT 98
[2020-07-17 11:17] VITALS: BP 108/70
--- NOTE | 2020-07-17 13:14 | PCDIET ---
Dietitian Screen for BMI: 17.7. Patient states to snacking more at home then eating meals. On admit N/V/D. Currently eating 10-50% of heart healthy diet. Patient refused diet supplements. Recommend to liberalize diet to regular. No further nutritional interventions.
--- NOTE | 2020-07-17 13:54 | PC.NURSE ---
0800 Kyra DARDEN notified of clarification on apr about b12 injection. Please address if still needed.
--- NOTE | 2020-07-17 14:04 | PM.DS ---
DS: Admitting Diagnosis Admitting Diagnosis Admitting Diagnosis: Acute anemia DS: Discharge Diagnosis Discharge Diagnosis (1) Vomiting and diarrhea: Code(s): R11.10 - Vomiting, unspecified; R19.7 - Diarrhea, unspecified Status: Acute Assessment and Plan: Onset 1 day prior to presentation. Resolved with supportive care. She was rehydrated and was able to tolerate regular diet. C. diff negative. Additional stool cultures pending and will be monitored. No signs or symptoms to suggest acute infection. (2) Occult blood in stools: Code(s): R19.5 - Other fecal abnormalities Status: Acute Assessment and Plan: Occult blood test was positive. This in combination with acute anemia is concerning for GI bleed. She denies melena or hematochezia. Patient refused consultation to Gastroenterology, stating that she would absolutely not undergo EGD, colonoscopy, or any further testing. She was continued on Protonix and instructed to avoid NSAIDs. Discussed signs and symptoms for which to monitor at length. Outpatient follow-up with PCP encouraged, recommend outpatient GI referral if she changes her mind. (3) Chronic anemia: Code(s): D64.9 - Anemia, unspecified Status: Acute Assessment and Plan: Chronic pernicious anemia. Hgb was low at 6.7 at presentation, however felt to be erroneous with repeat H&H at baseline approximately 1 hour later. Her vitals remained stable as did her blood counts. She did not require blood transfusion. She cannot tolerate oral iron supplementation. She is unable to afford her IM vitamin B12. B12 levels evaluated and are within normal limits. She should follow-up with her PCP, and it has been recommended that she follow-up with hematology. Repeat H&H in 1 week. (4) Hypothyroidism: Code(s): E03.9 - Hypothyroidism, unspecified Status: Acute Assessment and Plan: Continue levothyroxine. (5) Combined systolic and diastolic congestive heart failure: Qualifiers: Heart failure chronicity: chronic Qualified Code(s): I50.42 - Chronic combined systolic (congestive) and diastolic (congestive) heart failure Code(s): I50.40 - Unspecified combined systolic (congestive) and diastolic (congestive) heart failure Status: Acute Assessment and Plan: EF 25-30% with grade 2 diastolic dysfunction. She is established with Cardiology. Continue Entresto and carvedilol. Heart healthy diet. 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 Associated limitations in functional status. She has a home health worker who provides assistance for her throughout the week. DS: Summary Hospital Course Reason for hospitalization: vomiting and diarrhea Hospital Course: Date of admission: 07/14/2020 Date of discharge: 07/17/2020 Gianna Miranda is a 75-year-old female known to me from prior hospital admissions with a history of CHF, valvular heart disease, post-polio syndrome, anxiety and depression, chronic iron deficiency anemia intolerant to oral iron supplementation, hypothyroidism, and several other comorbidities who presented to the emergency department on 07/14/20 with complaints of nausea, vomiting, and a few episodes of loose stools without melena or hematochezia. Upon presentation to the emergency department, her vital signs were stable, Hgb 6.7, Hct 22.9, WBC and platelets within normal limits, electrolytes stable, and UA with no concerns for infection. She was admitted to the hospitalist service for further evaluation and management. Her diarrhea resolved. She was able to tolerate regular diet. Her blood counts remained stable. She adamantly refused GI consultation or workup. I explained to her concerns given her anemia and occult bleeding. She understood risks and did not wish to proceed with further evaluation. She will need to follow u
== END 2020-07-17 15:41 | disposition home or self-care (01) | DRG 392 ==
LOC: ANHED 07-15 00:32 → ANH2MED 07-15 00:50
PROVIDERS: Nurse Practitioner Adult Health; Physician Assistant; Admitting Provider Internal Medicine; Emergency Provider Emergency Medicine; PCP Emergency Medicine; Visit Provider Family Medicine
DX: R11.10 Vomiting, unspecified (principal); I50.42 Chronic combined systolic (congestive) and diastolic (congestive) heart failure; I42.9 Cardiomyopathy, unspecified; R19.7 Diarrhea, unspecified; R19.5 Other fecal abnormalities; G14 Postpolio syndrome; M81.0 Age-related osteoporosis without current pathological fracture; I25.10 Atherosclerotic heart disease of native coronary artery without angina pectoris; D51.0 Vitamin B12 deficiency anemia due to intrinsic factor deficiency; E03.9 Hypothyroidism, unspecified; F41.8 Other specified anxiety disorders; K21.9 Gastro-esophageal reflux disease without esophagitis; I35.1 Nonrheumatic aortic (valve) insufficiency; Z66 Do not resuscitate; Z53.29 Procedure and treatment not carried out because of patient's decision for other reasons; Z87.891 Personal history of nicotine dependence; Z98.42 Cataract extraction status, left eye; Z98.41 Cataract extraction status, right eye; Z90.710 Acquired absence of both cervix and uterus
CPT/HCPCS: 36415; 51701; 80048; 80076; 81001; 82274; 82607; 82728; 83540; 83550; 83735; 85014; 85018; 85025; 86850; 86900; 86901; 87045; 87046; 87324; 87427; 93005; 96361; 96374; 97116; 97161; 97165; 97530; 99285; A9270; C9113; J1756; J2765; J7120

== ENCOUNTER 2020-07-21 13:51 | Outpatient (CLI) | payer OTHER, SELFPAY ==
[2020-07-21 14:30] LABS: Hematocrit 38.3 % (37.0-47.0); Hemoglobin 11.8 g/dL (12.0-15.0)
== END 2020-07-21 13:52 | disposition home or self-care (01) ==
LOC: ANHLAB 13:54
PROVIDERS: PCP Emergency Medicine; Visit Provider Physician Assistant
DX: D64.9 Anemia, unspecified (principal)
CPT/HCPCS: 36415; 85014; 85018

== ENCOUNTER 2021-04-12 11:55 | Outpatient (CLI) | payer OTHER, MEDICAID, SELFPAY ==
--- NOTE | ~2021-04-12 | US_ITS ---
EXAMINATION:US venous doppler LE LT INDICATION:Left calf pain TECHNIQUE: Multiple grayscale, color flow and Doppler images of the left lower extremity deep venous systems were obtained and reviewed. COMPARISON:No prior studies for comparison. FINDINGS: The common femoral, superficial femoral and popliteal veins demonstrate normal respiratory variation, augmentation and compressibility. Color flow is also seen within the posterior tibial, pe roneal, greater saphenous and profunda veins. IMPRESSION: 1: No lower extremity deep venous thrombosis. Reviewed, dictated and finalized at location A. FENCE ERECTOR
--- NOTE | ~2021-04-12 | XR_ITS ---
XR femur LT min 2V 04/12/2021 12:41 Indication: Leg pain Procedure: 2 views left femur Comparison: 04/14/2017 Findings: Osteopenia. No fracture, subluxation or dislocation. No focal lytic or blastic lesions. No focal soft tissue abnormality. No foreign body. Impression: 1: No acute bone or joint abnormality. Reviewed, dictated and finalized at location A. F MACHINE OPERATOR Impression: 1: No acute bone or joint abnormality.
== END 2021-04-12 11:56 | disposition home or self-care (01) ==
LOC: ANHIMG 12:02
PROVIDERS: PCP Emergency Medicine; Visit Provider Emergency Medicine
DX: M79.605 Pain in left leg (principal); M79.606 Pain in leg, unspecified
CPT/HCPCS: 73552; 93971

== ENCOUNTER 2021-05-07 13:33 | Outpatient (CLI) | payer OTHER, MEDICAID, SELFPAY ==
[2021-05-07 14:21] LABS: LDL Cholesterol Direct 71 mg/dL
[2021-05-07 14:40] LABS: Thyroid Stimulating Hormone 0.474 uIU/mL (0.465-4.680)
[2021-05-07 14:50] LABS: Albumin Level 4.2 g/dL (3.5-5.1); Alkaline Phosphatase 93 U/L (38-126); Anion Gap 11 mmol/L (8-16); Aspartate Amino Transferase 17 U/L (14-36); Bilirubin,Total 0.2 mg/dL (0.2-1.3); Blood Urea Nitrogen 24 mg/dL (7-17); Carbon Dioxide 22 mmol/L (22-30); Chloride 102 mmol/L (98-107); Cholesterol 186 mg/dL (0-200); Creatine Kinase 56 U/L (30-135); Estimated Glomerular Filt Rate 49; Glucose 89 mg/dL (65-110); HDL Direct 65 mg/dL; Sodium 135 mmol/L (137-145); Triglycerides 93 mg/dL (<150)
[2021-05-07 15:11] LABS: Alanine Aminotransferase < 6 U/L (4-35)
== END 2021-05-07 13:34 | disposition home or self-care (01) ==
LOC: ANHLAB 13:37
PROVIDERS: PCP Emergency Medicine; Visit Provider Emergency Medicine
DX: Z13.6 Encounter for screening for cardiovascular disorders (principal); E78.5 Hyperlipidemia, unspecified; E03.9 Hypothyroidism, unspecified; R74.8 Abnormal levels of other serum enzymes
CPT/HCPCS: 36415; 80053; 80061; 82550; 84443

== ENCOUNTER 2021-05-11 13:35 | Outpatient (CLI) | payer OTHER, MEDICAID, SELFPAY ==
[2021-05-11 14:08] LABS: Potassium 4.9 mmol/L (3.4-5.0)
== END 2021-05-11 13:36 | disposition home or self-care (01) ==
PROVIDERS: PCP Emergency Medicine; Visit Provider Emergency Medicine
DX: E87.5 Hyperkalemia (principal)
CPT/HCPCS: 36415; 84132

== ENCOUNTER 2021-06-25 10:17 | Emergency (ER) | payer OTHER, MEDICAID, SELFPAY ==
[2021-06-25] VITALS (11 sets, daily range): BP systolic 97–122; BP diastolic 37–82; PULSE 63–72; RESP 15–23; TEMP 36.9; O2SAT 94–100
--- NOTE | ~2021-06-25 | CT_ITS ---
EXAMINATION: CT brain wo con DATE: 06/25/2021 11:03 INDICATION: Visual changes. TECHNIQUE: Computed tomography (CT) of the head was performed without intravenous contrast. The dose- length product was 529.67 mGy-cm. Automated exposure control and iterative reconstruction technique w ere employed. COMPARISON: CT dated 03/21/2020 FINDINGS: No acute intracranial hemorrhage, infarction, mass or mass effect. No ventriculomegaly or m idline shift. Basilar cisterns are patent. Mild generalized atrophy. No acute intracranial hemorrhage , infarction, mass or mass effect. There are scattered mild periventricular and subcortical white mat ter changes, most likely related to small vessel ischemic disease (microangiopathy). Paranasal sinuse s and right mastoids are pneumatized. Small left mastoid effusion. No depressed skull fractures. IMPRESSION: 1. No acute intracranial abnormality. 2: Chronic age-related findings. Reviewed, dictated and finalized at location A.
--- NOTE | 2021-06-25 10:50 | ED.EYEPROB ---
HPI - Eye Problem General Chief complaint: Eye Problems Stated complaint: visual changes, started friday Time Seen by Provider: 06/25/21 10:23 Source: patient History of Present Illness HPI Narrative: 76 y/o female presents to the ER today for headache for 3 weeks and loss of vision in right eye. She says that she has been having headache in bilateral temples for the past 3 weeks. She says it has been pretty much constant but waxes and wanes in intensity, reporting that temples are tender to touch. She started having black spots in her right eye vision on Friday. Yesterday she reports that she lost vision in the top half of right eye like a shade had been pulled down. Today she woke up and reports that her right eye is completely black. She can tell if there is a light shining directly into her eye but other than that cannot see anything. No nausea or vomiting. No extremity weakness or numbness. No facial drooping or numbness. Related Data Home Medications Medication Instructions Recorded Confirmed carvedilol 6.25 mg tablet 6.25 mg PO BID 08/11/19 04/25/21 buspirone 7.5 mg PO BID 07/15/20 04/25/21 escitalopram oxalate 10 mg PO DAILY 07/15/20 04/25/21 divalproex [Depakote] 125 mg PO Q8H 06/25/21 quetiapine [Seroquel] 50 mg PO HS 06/25/21 Allergies Allergy/AdvReac Type Severity Reaction Status Date / Time lactose AdvReac Mild emesis, Verified 06/25/21 11:04 diarrhea Review of Systems Constitutional: Constitutional: Denies chills, Denies fatigue, Denies fever(s) and Denies weakness Eyes: Eyes: Reports as per HPI and Reports change in vision ENT: Denies dysphagia, Denies dizziness and Denies nasal congestion Cardiovascular: Cardiovascular: Reports no additional cardiovascular complaints and Denies chest pain Respiratory: Respiratory: Denies cough, Denies dyspnea and Denies wheezing Gastrointestinal: Gastrointestinal: Denies abdominal pain, Denies constipation, Denies diarrhea, Denies nausea and Denies vomiting Genitourinary: Genitourinary: Reports no additional female genitourinary complaints Musculoskeletal: Musculoskeletal: Denies back pain, Denies myalgias and Denies arthralgias Integumentary/Breasts: Skin/Breast: Denies rash Neurologic: Denies confusion, Denies dizziness, Reports headache(s), Denies focal weakness, Denies numbness and Denies weakness Psychiatric: Psychiatric: Reports no additional psychiatric complaints Endocrine: Endocrine: Reports no additional endocrine complaints Hematologic/Lymphatic: Hematologic/Lymphatic: Reports no additional hematologic/lymphatic complaints Allergic/Immunologic: Allergic/Immunologic: Reports no additional allergic/immunologic complaints [facility] Past Medical History Medical History Aortic insufficiency Moderate to severe by recent echocardiogram. Barretts esophagus Cardiomyopathy Most recent ejection fraction of 25 to 35%. Started on Entresto in March 2020. Chronic anemia Chronic chest pain Nonischemic in etiology. Combined systolic and diastolic congestive heart failure Depression with anxiety Gastroesophageal reflux disease History of pelvic fracture History of poliomyelitis History of shingles Hypothyroidism Iron deficiency anemia Intolerant oral supplementation. Mild coronary artery disease Cardiac catheterization in October 2018 at [facility] showed 40% ostial diagonal stenosis. Mitral regurgitation Moderate to moderately severe by recent echo. Osteoporosis Post-polio syndrome Amaya-Hugo syndrome Surgical History Surgical History History of ankle fusion Bilateral. History of bilateral cataract extraction History of hip surgery ORIF right hip fracture. History of hysterectomy History of shoulder surgery Left shoulder surgery with rotator cuff repair. Family History Family History (Re
--- NOTE | 2021-06-25 10:57 | ECG_ITS ---
Measurements Intervals [place] Rate: 53 P: 41 MI: 156 QRS: -35 QRSD: 98 T: -37 QT: 405 QTc: 384 Interpretive Statements SINUS BRADYCARDIA LEFT AXIS DEVIATION DELAYED PRECORDIAL R/S TRANSITION ST-T WAVE ABNORMALITY IN ANTEROLATERAL LEADS- CONSIDER ISCHEMIA ABNORMAL ECG Electronically Signed On 06-25-2021 13:26:34 CDT by Kenroy Solis D.O.
[2021-06-25 11:20] LABS: Basophils Absolute Auto 0.1 K/mm3 (0.0-0.1); Basophils Percent Auto 0.7 % (0.2-1.2); Hematocrit 28.3 % (37.0-47.0); Hemoglobin 8.2 g/dL (12.0-15.0); Immature Granulocyte Absolute 0.05 K/mm3 (0.00-0.031); Immature Granulocyte Percent A 0.5 % (0-0.5); Lymphocytes Absolute Auto 2.47 K/mm3 (0.9-3.2); Lymphocytes Percent Auto 22.2 % (18.3-44.2); Mean Corpuscular Hemoglobin 23.7 pg (26-34); Mean Corpuscular Volume 81.8 fl (80-100); Monocytes Absolute Auto 1.3 K/mm3 (0.1-0.6); Monocytes Percent Auto 11.6 % (2.6-8.5); Neutrophils Absolute Auto 7.2 K/mm3 (1.3-6.7); Platelet Count Result 364 k/mm3 (150-375); Red Blood Count 3.46 M/mm3 (4.2-5.4); Red Cell Distribution Width 15.8 % (11.5-14.5); White Blood Count 11.1 K/mm3 (4.5-10.0)
[2021-06-25 11:33] LABS: INR 1.2; Prothrombin Time 14.3 Seconds (11.1-14.7)
[2021-06-25 11:34] LABS: Albumin Level 3.5 g/dL (3.5-5.1); Alkaline Phosphatase 88 U/L (38-126); Anion Gap 8 mmol/L (8-16); Aspartate Amino Transferase 14 U/L (14-36); Bilirubin,Total 0.3 mg/dL (0.2-1.3); Blood Urea Nitrogen 12 mg/dL (7-17); Calcium 8.3 mg/dL (8.4-10.2); Carbon Dioxide 29 mmol/L (22-30); Chloride 105 mmol/L (98-107); Estimated Glomerular Filt Rate 54; Glucose 87 mg/dL (65-110); Partial Thromboplastin Time 40.4 SECONDS (22.3-36.8); Sodium 142 mmol/L (137-145)
[2021-06-25 11:40] LABS: Alanine Aminotransferase < 6 U/L (6-35)
[2021-06-25 11:41] LABS: Potassium 2.8 mmol/L (3.4-5.0); Troponin I < 0.012 ng/mL (0.000-0.034)
[2021-06-25 11:48] LABS: CRP 13.2 mg/dL (<1.0)
[2021-06-25 12:04] LABS: Erythrocyte Sedimentation Rate > 140 mm/hr (0-20)
[2021-06-25] MEDS: methylPREDNISolone SOD SUCC 125 MG VIAL IV PUSH (12:49)
[2021-06-25] MEDS: POTASSIUM CHLORIDE INJ 40 MEQ in SODIUM CHLORIDE 0.9% IV 500 ML 130 MEQ IVPB (13:15)
[2021-06-25] MEDS: SODIUM CHLORIDE 0.9% IV 1,000 ML 999 ML IV CONT (13:43)
[2021-06-25] MEDS: POTASSIUM CHLORIDE 20 MEQ TABLET 40 MEQ PO (13:43)
[2021-06-25] MEDS: LORazepam (*CRX) 1 MG TABLET PO (15:08)
[2021-06-25 15:53] LABS: SARS-CoV-2 RNA PCR Negative
--- NOTE | 2021-06-25 17:24 | PC.NURSE ---
[facility] accepted transfer to [facility] [id number] ETA 1830 Trip # [id number]
--- NOTE | 2021-06-25 18:30 | PC.NURSE ---
Pt requesting pain medications
--- NOTE | 2021-06-25 18:40 | PC.NURSE ---
Kirk called with an updated [employer] time of 1999
--- NOTE | 2021-06-25 18:48 | PC.NURSE ---
elena eta update to 1999 [facility] accepted transfer to [place] ETA 20min
[2021-06-25] MEDS: HYDROcodone/acetaminophen (*CRX) 7.5-325 MG TABLET 1 TAB PO (18:50)
== END 2021-06-25 19:20 | disposition short-term general hospital (02) ==
PROVIDERS: Emergency Provider Nurse Practitioner Family; PCP Emergency Medicine
DX: R51.9 Headache, unspecified (principal); H53.131 Sudden visual loss, right eye; Z20.822 Contact with and (suspected) exposure to COVID-19; I42.9 Cardiomyopathy, unspecified; I50.40 Unspecified combined systolic (congestive) and diastolic (congestive) heart failure; I25.10 Atherosclerotic heart disease of native coronary artery without angina pectoris; I08.0 Rheumatic disorders of both mitral and aortic valves; E03.9 Hypothyroidism, unspecified; D50.9 Iron deficiency anemia, unspecified; K22.70 Barrett's esophagus without dysplasia; K21.9 Gastro-esophageal reflux disease without esophagitis; M81.0 Age-related osteoporosis without current pathological fracture; E16.4 Increased secretion of gastrin; F41.8 Other specified anxiety disorders; Z86.12 Personal history of poliomyelitis; Z98.42 Cataract extraction status, left eye; Z98.41 Cataract extraction status, right eye; Z87.891 Personal history of nicotine dependence; R00.1 Bradycardia, unspecified; R94.31 Abnormal electrocardiogram [ECG] [EKG]
CPT/HCPCS: 36415; 70450; 80053; 84484; 85025; 85610; 85652; 85730; 86140; 93005; 96365; 96366; 96375; 99285; A9270; C9803; J2930; J3480; J7030; J7040; U0003; U0005

== ENCOUNTER 2021-09-24 18:51 | Inpatient (IN) | payer OTHER, MEDICAID, SELFPAY ==
[2021-09-24] VITALS (26 sets, daily range): BP systolic 66–127; BP diastolic 34–70; PULSE 71–106; RESP 17–34; TEMP 36.6–36.7; O2SAT 52–100
--- NOTE | ~2021-09-24 | XR_ITS ---
XR chest 1V portable DATE: 09/25/2021 17:12 INDICATION: Dyspnea TECHNIQUE: Portable AP chest on 09/25/2021 at 1702 hours COMPARISON: 09/24/2021 CTA chest 09/24/2021 portable AP chest FINDINGS: There is prominent diffuse increased interstitial prominence throughout the lungs, especial ly mid and lower lung pfeiffer, consistent with severe interstitial fibrosis, with possible superimpose d interstitial pneumonia or interstitial edema. Heart size appears normal No significant pleural effusion is evident. No pneumothorax. There is diffuse osteopenia. Bilateral chronic rotator cuff atrophy. IMPRESSION: Prominent diffuse pulmonary interstitial fibrosis ; cannot exclude superimposed infiltrat e. The interstitium appears more prominent compared to 09/24/2021, which may be due to less optimal l corrine expansion versus increased interstitial pneumonia or less likely edema. Reviewed, dictated and finalized at location A. IMPRESSION: Prominent diffuse pulmonary interstitial fibrosis ; cannot exclude superimposed infiltrate. The interstitium appears more prominent compared to , which may be due to less optimal lung expansion versus increased inte rstitial pneumonia or less likely edema.
--- NOTE | ~2021-09-24 | XR_ITS ---
EXAMINATION: XR chest 1V portable DATE: 09/24/2021 19:36 INDICATION: Shortness of breath. TECHNIQUE: A single frontal view of the chest was obtained. COMPARISON: Chest 2 views 03/31/2020, chest CT 03/21/2020 FINDINGS: There is a diffuse interstitial pattern in the lungs, consistent with mild pulmonary edema. No pleural effusion or pneumothorax. The heart size is normal. There are bilateral breast implants. IMPRESSION: 1. Mild pulmonary edema. Reviewed, dictated and finalized at location A. IMPRESSION: 1. Mild pulmonary edema.
--- NOTE | ~2021-09-24 | US_ITS ---
US abdomen limited INDICATION: PROCEDURE: Realtime right upper abdominal ultrasound. COMPARISON: No prior studies for comparison. FINDINGS: The pancreas is normal without focal mass or pancreatic ductal dilation. Liver echotexture is normal without focal mass or intrahepatic biliary dilatation. There is normal directional flow i n the portal vein. The gallbladder is normal without stones, gallbladder wall thickening or pericholecystic fluid. Comm on bile duct measures 4 mm. No sonographic Worthy's sign. IMPRESSION: 1: Normal limited abdominal ultrasound. Reviewed, dictated and finalized at location B.
--- NOTE | ~2021-09-24 | CT_ITS ---
EXAMINATION: CTA chest PE protocol DATE: 09/24/2021 20:45 INDICATION: Chest pain. Shortness of breath. TECHNIQUE: Computed tomography angiography (CTA) of the chest was performed with 100 mL Omnipaque-350 intravenous contrast timed to evaluate the pulmonary arteries. Coronal maximum intensity projection 3D-reconstructions were created by the technologist. Automated exposure control and iterative reconst ruction technique were employed. The dose-length product was 351.29 mGy-cm. COMPARISON: Chest CT 03/21/2020 FINDINGS: Motion artifact is noted. There is moderate emphysema. There are groundglass opacities in a ll lobes. There is mild scarring at the lung apices. There are mild airspace opacities in the lower l obes. There are small pleural effusions. The heart size is normal. No pericardial effusion. There are coronary artery calcifications. There is no pulmonary embolus. There is a moderate-sized sliding hia anthony hernia. There is a 2.4 cm cyst in left kidney. There are bilateral breast implants with intracaps ular rupture on the right. There is thoracic dextroscoliosis and mild spondylosis. IMPRESSION: 1. No pulmonary embolus. 2. Diffuse lung disease, consistent with moderate pulmonary edema versus atypical pneumonia. 3. Small pleural effusions. 4. Moderate emphysema. 5. Moderate-sized sliding hiatal hernia. Reviewed, dictated and finalized at location A. IMPRESSION: 1. No pulmonary embolus. 2. Diffuse lung disease, consistent with moderate pulmonary edema versus atypic al pneumonia. 3. Small pleural effusions. 4. Moderate emphysema. 5. Moderate-sized sliding hiatal hernia.
--- NOTE | 2021-09-24 19:02 | ECG_ITS ---
Measurements Intervals [place] Rate: 98 P: 18 HI: 124 QRS: -43 QRSD: 87 T: -2 QT: 339 QTc: 434 Interpretive Statements SINUS RHYTHM POSSIBLE LEFT ATRIAL ENLARGEMENT [-0.1mV P WAVE IN V1/V2] MARKED LEFT AXIS DEVIATION [QRS AXIS < -30] PATTERN CONSISTENT WITH PULMONARY DISEASE ST DEPRESSION, CONSIDER SUBENDOCARDIAL INJURY [0.1+ mV ST DEPRESSION] ABNORMAL ECG COMPARED TO ECG 06/25/2021 13:13:50 SINUS RHYTHM NOW PRESENT Electronically Signed On 09-25-2021 8:46:51 CDT by Aaron Rao M.D.
[2021-09-24 19:19] LABS: Alveolar/Arterial O2 Gradient 523.4 mmHg; Carboxyhemoglobin 0.3 % THb (0-2.0); Fractional Inspired Oxygen 100 %; HCO3 ABG 17.1 mEq/l (22.0-26.0); Methemoglobin ABG 0.3 %THb (0-1.5); Oxygen Content ABG 13.5 %vol (16.0-22.0); Oxygen Saturation ABG 99.3 % (95.0-100.0); Oxyhemoglobin 97.5 % THb (90.0-100.0); PO2 ABG 166.4 mmHg (80.0-100.0); PO2 FiO2 Ratio Arterial Blood 1.66 %; Reduced Hemoglobin 1.9 %THb (0-5.0); Total Hemoglobin 9.6 g/dL (12.0-18.0); pH ABG 7.486 (7.350-7.450)
[2021-09-24 19:21] LABS: Device NON-INVASIVE VENT; Modified Allen's Test Pass; Non-Invasive Expiratory Pressure 8 CMH2O; Non-Invasive Inspiratory Pressure 16 CMH2O; Non-Invasive Vent Rate 16 /MIN; PCO2 ABG 23.2 mmHg (35.0-45.0); Site Drawn RIGHT RADIAL
--- NOTE | 2021-09-24 19:22 | ED.CHESTPAIN ---
HPI - Chest Pain General Chief Complaint: Chest Pain Stated Complaint: CHEST PAIN, LOW SPO2 History of Present Illness HPI narrative: 76-year-old female presents emergency room secondary to chest pain and shortness of breath. She states the pain is diffuse throughout her chest. She been having a lot of cough and congestion and feeling more more short of breath. She states she is been so fatigued she can even Transfer herself from her bed to her wheelchair. She is not vaccinated for COVID. 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 Patient has had a a lot of cough but sounds like most of is nonproductive in nature. She feels it more short of breath when she is supine. She was brought in by EMS and noted to be markedly hypoxic with O2 saturations only in the 50s. Related Data Home Medications Medication Instructions Recorded Confirmed carvedilol 6.25 mg tablet (Coreg) 6.25 mg PO BID 08/11/19 04/25/21 buspirone 7.5 mg tablet 7.5 mg PO BID 07/15/20 04/25/21 escitalopram oxalate 10 mg tablet 10 mg PO DAILY 07/15/20 04/25/21 divalproex 125 mg tablet,delayed 125 mg PO Q8H 06/25/21 release (Depakote) hydrocodone 7.5 mg-acetaminophen 1 tablet PO 06/25/21 325 mg tablet quetiapine 50 mg tablet (Seroquel) 50 mg PO HS 06/25/21 Allergies Allergy/AdvReac Type Severity Reaction Status Date / Time lactose AdvReac Mild emesis, Verified 09/24/21 18:57 diarrhea Review of Systems Review of Systems: CONSTITUTIONAL: Denies fever, chills, or sweats. EYES: Denies visual changes, redness, or discharge. ENT: Denies rhinorrhea, congestion, sore throat, or otalgia. CARDIOVASCULAR: Having chest pain but no associated palpitations. RESPIRATORY: Patient is complaining of a cough and extremely short of breath GASTROINTESTINAL: Denies abdominal pain, nausea, vomiting, or diarrhea. GENITOURINARY: Denies dysuria or hematuria. SKIN: Denies rash or itching. MUSCULOSKELETAL: Denies back pain, joint pain, or myalgia. NEUROLOGIC: Denies headache, numbness, or weakness. PSYCHIATRIC: Denies anxiety or depression. [facility] Past Medical History Medical History Aortic insufficiency Moderate to severe by recent echocardiogram. Barretts esophagus Cardiomyopathy Most recent ejection fraction of 25 to 35%. Started on Entresto in March 2020. Chronic anemia Chronic chest pain Nonischemic in etiology. Combined systolic and diastolic congestive heart failure Depression with anxiety Gastroesophageal reflux disease History of pelvic fracture History of poliomyelitis History of shingles Hypothyroidism Iron deficiency anemia Intolerant oral supplementation. Mild coronary artery disease Cardiac catheterization in October 2018 at [facility] showed 40% ostial diagonal stenosis. Mitral regurgitation Moderate to moderately severe by recent echo. Osteoporosis Post-polio syndrome Amaya-Hugo syndrome Surgical History Surgical History History of ankle fusion Bilateral. History of bilateral cataract extraction History of hip surgery ORIF right hip fracture. History of hysterectomy History of shoulder surgery Left shoulder surgery with rotator cuff repair. Family History Family History Grandparent Diabetes mellitus FH: brain aneurysm Mother Hypertension Motor vehicle accident Cause of . Patient's mother when patient was 10 years old Social History Social History Social History: The patient lives in her own apartment in [place]. She is . She and her (now ) and lives in an apartment. They had 2 daughters, both whom are (1 was killed by straight gun fire, and the other ?because of poor lifestyle john
[2021-09-24 19:44] LABS: Basophils Percent Auto 0.3 % (0.2-1.2); Immature Granulocyte Absolute 0.53 K/mm3 (0.00-0.031); Immature Granulocyte Percent A 4.6 % (0-0.5); Lymphocytes Absolute Auto 1.55 K/mm3 (0.9-3.2); Lymphocytes Percent Auto 13.4 % (18.3-44.2); Mean Corpuscular HGB Conc 25.7 g/dl (32-36); Mean Corpuscular Volume 89.5 fl (80-100); Monocytes Absolute Auto 0.7 K/mm3 (0.1-0.6); Neutrophils Absolute Auto 8.7 K/mm3 (1.3-6.7); Neutrophils Percent Auto 75.7 % (45.5-73.1); Nucleated Red Blood Cells Absolute Auto 0.1 K/mm3 (0.0-0.012); Nucleated Red Blood Cells Perc 0.4 % (0.0-0.2); Platelet Count Result 276 k/mm3 (150-375); Red Blood Count 3.91 M/mm3 (4.2-5.4); Red Cell Distribution Width 20.4 % (11.5-14.5); White Blood Count 11.5 K/mm3 (4.5-10.0)
[2021-09-24 19:54] LABS: INR 1.3; Prothrombin Time 15.2 Seconds (11.1-14.7)
[2021-09-24 19:55] LABS: Partial Thromboplastin Time 31.8 SECONDS (22.3-36.8)
[2021-09-24 20:07] LABS: Platelet Estimate Adequate (Adequate)
[2021-09-24 20:08] LABS: Anisocytosis 1+ (NORMAL); Hypochromasia 1+ (NORMAL)
[2021-09-24 20:16] LABS: Lactic Acid Reflex 4.9 mmol/L (0.7-2.0)
[2021-09-24 20:17] LABS: Alkaline Phosphatase 71 U/L (38-126); Anion Gap 14 mmol/L (8-16); Aspartate Amino Transferase 649 U/L (14-36); Bilirubin,Total 0.7 mg/dL (0.2-1.3); Blood Urea Nitrogen 20 mg/dL (7-17); Calcium 7.5 mg/dL (8.4-10.2); Carbon Dioxide 20 mmol/L (22-30); Chloride 105 mmol/L (98-107); Estimated Glomerular Filt Rate 44; Glucose 96 mg/dL (65-110); NT Pro B Type Natriuretic Pept 8770 pg/mL (5-100); Potassium 4.5 mmol/L (3.4-5.0); Sodium 139 mmol/L (137-145); Troponin I 0.151 ng/mL (0.000-0.034)
[2021-09-24 20:21] LABS: SARS-CoV-2 RNA PCR Positive
[2021-09-24 20:24] LABS: Alanine Aminotransferase 316 U/L (6-35)
[2021-09-24] MEDS: SODIUM CHLORIDE 0.9% IV 1,000 ML 999 ML IV CONT ×2 (20:29→22:30)
[2021-09-24 20:39] LABS: NT Pro B Type Natriuretic Pept 8600 pg/mL (5-100)
--- NOTE | 2021-09-24 20:52 | PC.NURSE ---
Pt to CT scan via stretcher at this time, RESP in assist w/ BIPAP.
[2021-09-24] MEDS: ENOXAPARIN 40 MG/0.4 ML SYRINGE SUB-Q (22:28)
[2021-09-24 22:41] LABS: Reflex Lactic Acid Yes or No Add Lactic
[2021-09-24 23:27] LABS: Lactic Acid 1.7 mmol/L (0.7-2.0)
[2021-09-25] VITALS (25 sets, daily range): BP systolic 69–128; BP diastolic 28–75; PULSE 54–79; RESP 12–33; TEMP 36.5–37.1; O2SAT 90–100; BMI 23.0
--- NOTE | 2021-09-25 | ECHO_ITS ---
Patient Info Name: Gianna Miranda Age: 76 years : 1945 Gender: Female Ht: 59 in Wt: 110 lbs BSA: 1.45 m2 HR: 69 bpm BP: 97 / 42 mmHg Heart Rhythm: Sinus Rhythm Technical Quality: Fair Exam Date: 09/25/2021 9:35 AM Exam Location: [facility] Pulmonary Patient Status: Inpatient Admit Date: 09/24/2021 Staff Ordering Physician: Arsenio Bueno MD [employer]ilingual [employer]: Machelle Coronel RDCS Attending Provider: Arsenio Bueno MD Referring Physician: Ximena MOORE; Exam Type: CA echo doppler color flow Study Info Indications - elevated bnp Complete two-dimensional, color flow and Doppler transthoracic echocardiogram is performed. Summary 1. Complete two-dimensional, color flow and Doppler transthoracic echocardiogram is performed. 2. Left ventricular systolic function is low normal, estimated at 50-55%. 3. Left ventricular chamber dimension is normal. 4. There is mildly increased left ventricular wall thickness. 5. The left ventricular diastolic function is grade I diastolic dysfunction. 6. The apical septum, apical cap, mid inferoseptal, basal anteroseptal, and mid anteroseptal are hypokinetic. 7. Left atrial chamber dimension is mildly enlarged. 8. There is mild to moderate aortic valve regurgitation. 9. There is mild mitral valve regurgitation. 10. There is mild tricuspid valve regurgitation. 11. Moderate pulmonary hypertension, estimated pulmonary arterial systolic pressure is 48 mmHg. Left Ventricle Left ventricular systolic function is low normal, estimated at 50-55%. Left ventricular chamber dimension is normal. There is mildly increased left ventricular wall thickness. The left ventricular diastolic function is grade I diastolic dysfunction. The apical septum, apical cap, mid inferoseptal, basal anteroseptal, and mid anteroseptal are hypokinetic. All other torrez appear normal. Right Ventricle Right ventricular chamber dimension is normal. Right ventricular systolic function is normal. Left Atria Left atrial chamber dimension is mildly enlarged. Right Atria Right atrial chamber dimension is normal. Atrial Septum Intact interatrial septum visualized by color flow imaging. Aortic Valve The aortic valve is trileaflet. There is mild aortic valve sclerosis. There is no aortic valve stenosis. There is mild to moderate aortic valve regurgitation. Pulmonic Valve The pulmonic valve is normal. There is no pulmonic valve stenosis. There is trace pulmonic regurgitation. Mitral Valve The mitral valve has normal leaflets. There is no mitral valve stenosis. There is mild mitral valve regurgitation. Tricuspid Valve The tricuspid valve leaflets are normal. There is no significant tricuspid valve stenosis. There is mild tricuspid valve regurgitation. Moderate pulmonary hypertension, estimated pulmonary arterial systolic pressure is 48 mmHg. Pericardium/Pleural The pericardium appears normal. There is no pericardial effusion. Inferior Vena Cava Normal inferior vena cava with >50% collapse upon inspiration consistent with normal right atrial pressure, 10 mmHg. Aorta The aortic root size at the sinus of Valsalva is normal. Left Ventricular Outflow Tract Name Value Normal LVOT 2D
--- NOTE | 2021-09-25 01:44 | ADMGEN ---
This patient, Gianna Miranda, was admitted to IMU Room 211-01 on 09/25/21 at 0010. Patient/family oriented to hospital policies and general routines including ID bracelet, bed and alarms, visiting hours, pain management, procedures, bathroom and other care routines, personal items, smoking policy, room service/diet, and visiting hours. Information on how to activate the Rapid Response Team has been discussed. Patient/Family are encouraged to report perceived risks to care and to ask questions if they do not understand what they are told or what they should do.
--- NOTE | 2021-09-25 04:28 | PM.IMHP ---
H&P: HPI History of Present Illness Date/Time: 09/25/21 04:28 Chief Complaint: shortness of breath Narrative: this is a 76-year-old female with past medical history significant for polio, chronic obstructive pulmonary disease, tuberculosis, combined systolic and diastolic heart failure, cardiomyopathy, Sanchez's esophagus, gastroesophageal reflux disease, iron deficiency anemia Flick injury Hugo syndrome wheelchair-bound. patient was brought to the emergency room due to respiratory distress in emergency room she was noted to have increased work of breathing and low oxygen saturations was placed on BiPAP. Preliminary workup was significant for serology positive for COVID-19 BUN 20 creatinine 1.2 likely gases 4.9 Review of Systems Review of Systems: ROS unobtainable: Yes unobtainable due to medical condition ( on BiPAP) [facility] Past Medical History Medical History (Updated 09/25/21 @ 04:46 by Arsenio Bueno MD) Aortic insufficiency Moderate to severe by recent echocardiogram. Barretts esophagus Cardiomyopathy Most recent ejection fraction of 25 to 35%. Started on Entresto in March 2020. Chronic anemia Chronic chest pain Nonischemic in etiology. Combined systolic and diastolic congestive heart failure Depression with anxiety Gastroesophageal reflux disease History of pelvic fracture History of poliomyelitis History of shingles Hypothyroidism Iron deficiency anemia Intolerant oral supplementation. Mild coronary artery disease Cardiac catheterization in October 2018 at [facility] showed 40% ostial diagonal stenosis. Mitral regurgitation Moderate to moderately severe by recent echo. Osteoporosis Post-polio syndrome Amaya-Hugo syndrome Surgical History Surgical History History of ankle fusion Bilateral. History of bilateral cataract extraction History of hip surgery ORIF right hip fracture. History of hysterectomy History of shoulder surgery Left shoulder surgery with rotator cuff repair. Family History Family History Grandparent Diabetes mellitus FH: brain aneurysm Mother Hypertension Motor vehicle accident Cause of . Patient's mother when patient was 10 years old Social History Social History Social History: The patient lives in her own apartment in [place]. She is . She and her (now ) and lives in an apartment. They had 2 daughters, both whom are (1 was killed by straight gun fire, and the other ?because of poor lifestyle choices?). 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 She smoked a pack of cigarettes per day for about 32 years and quit in 2008. She denies alcohol and illicit substance abuse. She designates her neighbor Verónica Tinoco as her surrogate decision maker. She wishes to be a do not resuscitate. Smoking packs per day: 1 Smoking cigarettes per day: 20.0 Years smoked: 30 Smoking pack-years: 30.00 Smoking status: Former smoker Tobacco type: cigarettes Second hand tobacco smoke exposure: Yes Smoking end date: 11/02/08 Alcohol intake: never Substance use: never Substance use type: does not use Gender identity (if verbalized by the patient): Female Sexual Orientation (if Verbalized by the Patient): Straight or Heterosexual Spiritual care concerns: No Meds Home Medications and Allergies Home Medications Medication Instructions Recorded Confirmed Type carvedilol 6.25 mg tablet (Coreg) 6.25 mg PO Q12H 08/11/19 09/25/21 History sacubitril 24 mg-valsartan 26 mg 1 tablet PO Q12HR #60 tabs 03/28/20 09/25/21 Rx tablet (Entresto) escitalopram oxalate 10 mg tablet 10 mg PO DAILY 07/15/20 09/25/21 History venlafaxine 75 mg capsule,extended 75 mg PO DAILY #90 caps 03/23/21 09/25/21
[2021-09-25 04:41] LABS: Hemoglobin 7.2 g/dL (12.0-15.0); Mean Corpuscular HGB Conc 27.7 g/dl (32-36); Mean Corpuscular Hemoglobin 22.9 pg (26-34); Mean Corpuscular Volume 82.5 fl (80-100); Mean Platelet Volume 9.4 fl (7.4-10.4); Platelet Count Result 205 k/mm3 (150-375); Red Blood Count 3.15 M/mm3 (4.2-5.4); Red Cell Distribution Width 19.9 % (11.5-14.5)
[2021-09-25 04:51] LABS: Lactic Acid Reflex 1.4 mmol/L (0.7-2.0)
[2021-09-25 04:54] LABS: Alveolar/Arterial O2 Gradient 458.5 mmHg; Base Excess ABG -5.6 mEq/l (+/-2.0); Fractional Inspired Oxygen 80 %; HCO3 ABG 18.3 mEq/l (22.0-26.0); Oxygen Content ABG 10.7 %vol (16.0-22.0); Oxygen Saturation ABG 96.2 % (95.0-100.0); Oxyhemoglobin 92.5 % THb (90.0-100.0); PCO2 ABG 29.8 mmHg (35.0-45.0); PO2 ABG 80.6 mmHg (80.0-100.0); PO2 FiO2 Ratio Arterial Blood 1.01 %; Total Hemoglobin 8.1 g/dL (12.0-18.0); pH ABG 7.407 (7.350-7.450)
[2021-09-25 04:55] LABS: Anion Gap 7 mmol/L (8-16); Blood Urea Nitrogen 20 mg/dL (7-17); Calcium 6.5 mg/dL (8.4-10.2); Carbon Dioxide 21 mmol/L (22-30); Chloride 107 mmol/L (98-107); Estimated Glomerular Filt Rate > 60; Glucose 67 mg/dL (65-110); Potassium 3.4 mmol/L (3.4-5.0); Sodium 135 mmol/L (137-145)
[2021-09-25 04:58] LABS: Device BIPAP; Modified Allen's Test Pass; Site Drawn LEFT RADIAL
[2021-09-25 04:59] LABS: Expiratory Pressure 5 cmH2O; Inspiratory Pressure 10 cmH2O
[2021-09-25] MEDS: cefTRIAXone 2 GM in SODIUM CHLORIDE 0.9% IV 100 ML 200 ML IVPB ×2 (05:01→18:50)
[2021-09-25 05:10] LABS: Troponin I 0.184 ng/mL (0.000-0.034)
[2021-09-25] MEDS: LEVOTHYROXINE SODIUM 50 MCG TABLET PO (06:12)
[2021-09-25 08:20] LABS: Troponin I 0.129 ng/mL (0.000-0.034)
[2021-09-25] MEDS: SACUBITRIL/VALSARTAN 24-26 MG TABLET 1 TAB PO (09:18)
[2021-09-25] MEDS: ESCITALOPRAM OXALATE 10 MG TABLET PO (09:43)
[2021-09-25] MEDS: DIVALPROEX SODIUM DR 125 MG TABEC PO ×2 (09:43→20:09)
[2021-09-25] MEDS: carvediloL 6.25 MG TABLET PO ×2 (09:43→20:09)
[2021-09-25] MEDS: busPIRone HCL 10 MG TABLET PO ×2 (09:43→20:09)
[2021-09-25] MEDS: PANTOPRAZOLE 40 MG TABLET PO ×2 (09:44→20:09)
[2021-09-25] MEDS: VENLAFAXINE HCL XR 75 MG CAP.ER.24H PO (09:44)
[2021-09-25] MEDS: HYDROcodone/acetaminophen (*CRX) 7.5-325 MG TABLET 1 TAB PO (12:25)
[2021-09-25 12:54] LABS: Glucose Point of Care 68 mg/dl (65-105)
[2021-09-25 16:50] LABS: Glucose Point of Care 151 mg/dl (65-105)
[2021-09-25 17:14] LABS: Alveolar/Arterial O2 Gradient 525.1 mmHg; Fractional Inspired Oxygen 90 %; HCO3 ABG 19.6 mEq/l (22.0-26.0); Oxygen Content ABG 11.6 %vol (16.0-22.0); Oxygen Saturation ABG 96.9 % (95.0-100.0); Oxyhemoglobin 94.5 % THb (90.0-100.0); PCO2 ABG 29.8 mmHg (35.0-45.0); PO2 ABG 86.1 mmHg (80.0-100.0); PO2 FiO2 Ratio Arterial Blood 0.96 %; Total Hemoglobin 8.6 g/dL (12.0-18.0); pH ABG 7.435 (7.350-7.450)
[2021-09-25 17:15] LABS: Device BIPAP; Modified Allen's Test Pass; Site Drawn RIGHT RADIAL
[2021-09-25 17:16] LABS: Expiratory Pressure 5 cmH2O; Inspiratory Pressure 10 cmH2O
[2021-09-25 18:27] LABS: Alanine Aminotransferase 639 U/L (6-35)
[2021-09-25] MEDS: FUROSEMIDE INJ 40 MG/4 ML VIAL IV PUSH (18:50)
[2021-09-25] MEDS: ENOXAPARIN 60 MG/0.6 ML SYRINGE 45 MG SUB-Q (20:08)
[2021-09-25] MEDS: TEMAZEPAM (*CRX) 15 MG CAPSULE PO (20:09)
[2021-09-25] MEDS: QUEtiapine FUMARATE 25 MG TABLET 50 MG PO (20:09)
[2021-09-25 20:31] LABS: Glucose Point of Care 174 mg/dl (65-105)
[2021-09-26] VITALS (22 sets, daily range): BP systolic 107–125; BP diastolic 46–54; PULSE 47–96; RESP 17–29; TEMP 36.2–36.9; O2SAT 90–100
[2021-09-26] MEDS: cefTRIAXone 2 GM in SODIUM CHLORIDE 0.9% IV 100 ML 200 ML IVPB ×2 (05:19→18:28)
[2021-09-26] MEDS: LEVOTHYROXINE SODIUM 50 MCG TABLET PO (05:19)
--- NOTE | 2021-09-26 07:51 | PC.NURSE ---
Spoke with pt at length about code status. Pt states she does not want to continue treatment for COVID or anything else. States that she feels like it is her time to . Pt states that she has no living family and that Dr. Florian Blas is her PCP and knows all of her arrangements in event of her .
[2021-09-26 08:25] LABS: Glucose Point of Care 117 mg/dl (65-105)
--- NOTE | 2021-09-26 09:44 | PCOTNOTE ---
Attempted OT evaluation, per RN hold due to increased O2 needs at this time, will follow.
[2021-09-26] MEDS: DIVALPROEX SODIUM DR 125 MG TABEC PO ×2 (09:53→21:23)
[2021-09-26] MEDS: ESCITALOPRAM OXALATE 10 MG TABLET PO (09:53)
[2021-09-26] MEDS: PANTOPRAZOLE 40 MG TABLET PO ×2 (09:53→21:24)
[2021-09-26] MEDS: VENLAFAXINE HCL XR 75 MG CAP.ER.24H PO (09:53)
[2021-09-26] MEDS: busPIRone HCL 10 MG TABLET PO ×2 (09:54→21:24)
[2021-09-26] MEDS: SACUBITRIL/VALSARTAN 24-26 MG TABLET 1 TAB PO ×2 (09:54→21:23)
[2021-09-26] MEDS: carvediloL 6.25 MG TABLET PO ×2 (09:54→21:22)
[2021-09-26 12:22] LABS: Glucose Point of Care 151 mg/dl (65-105)
--- NOTE | 2021-09-26 13:16 | PCPTNOTE ---
Attempted PT evaluation, per RN wait until to tomorrow due to increased O2 needs at this time, will follow.
[2021-09-26 16:44] LABS: Glucose Point of Care 175 mg/dl (65-105)
--- NOTE | 2021-09-26 18:23 | PM.IMPN ---
Progress Note: A&P Assessment and Plan (1) Hypoxia: Code(s): R09.02 - Hypoxemia Status: Acute Assessment and Plan: patient is on BiPAP likely secondary to restrictive as well as obstructive disease combination ABG reviewed shows compensated respiratory failure patient tested positive for COVID added Decadron elevated liver enzymes not a candidate for remdesivir 09/26/2021 interval history: patient with covid on BIPAP and currently very depressed stats I am unable to take care of myself due to polio, she lives alone and it is difficult for her to manage her ADL, she wants to talk to hospice, will consult hospice, Patient is being treated with dexmethason, will try to wean patient off BIPAP. (2) Non-ST elevated myocardial infarction (non-STEMI): Code(s): I21.4 - Non-ST elevation (NSTEMI) myocardial infarction Status: Acute Assessment and Plan: chronic EKG changes elevation of troponins likely to be nonischemic myocardial injury (3) Gastroesophageal reflux disease: Code(s): K21.9 - Gastro-esophageal reflux disease without esophagitis Status: Acute Assessment and Plan: PPI (4) COPD (chronic obstructive pulmonary disease): Code(s): J44.9 - Chronic obstructive pulmonary disease, unspecified Status: Acute Assessment and Plan: breathing treatments (5) Cardiomyopathy: Code(s): I42.9 - Cardiomyopathy, unspecified Status: Acute Assessment and Plan: restart home meds when clinically able to so (6) Combined systolic and diastolic congestive heart failure: Qualifiers: Heart failure chronicity: chronic Qualified Code(s): I50.42 - Chronic combined systolic (congestive) and diastolic (congestive) heart failure Code(s): I50.40 - Unspecified combined systolic (congestive) and diastolic (congestive) heart failure Status: Acute Assessment and Plan: patient with elevated BNP HOWEVER VERY TENUOUS BLOOD PRESSURE CONTINUE TO MONITOR WILL OBTAIN ECHOCARDIOGRAM (7) Acute respiratory failure with hypoxia: Code(s): J96.01 - Acute respiratory failure with hypoxia Status: Acute Assessment and Plan: CONTINUE BIPAP (8) Sanchez's esophagus determined by biopsy: Code(s): K22.70 - Sanchez's esophagus without dysplasia Status: Acute Assessment and Plan: FOLLOW-UP IN OUTPATIENT SETTING (9) Post-polio syndrome: Code(s): G14 - Postpolio syndrome Status: Acute Assessment and Plan: SUPPORTIVE CARE (10) Chronic chest pain: Code(s): R07.9 - Chest pain, unspecified; G89.29 - Other chronic pain Status: Acute Assessment and Plan: SUPPORTIVE CARE (11) Elevated liver enzymes: Code(s): R74.8 - Abnormal levels of other serum enzymes Status: Acute Assessment and Plan: WILL OBTAIN RIGHT UPPER QUADRANT ULTRASOUND CONTINUE TO TREND Subjective Date/time seen: 09/26/21 18:23 HPI this is a 76-year-old female with past medical history significant for polio, chronic obstructive pulmonary disease, tuberculosis, combined systolic and diastolic heart failure, cardiomyopathy, Sanchez's esophagus, gastroesophageal reflux disease, iron deficiency anemia Flick injury Hugo syndrome wheelchair-bound. patient was brought to the emergency room due to respiratory distress in emergency room she was noted to have increased work of breathing and low oxygen saturations was placed on BiPAP.? Preliminary workup was significant for serology positive for COVID-19 BUN 20 creatinine 1.2 likely gases 4.9 09/26/2021 interval history: patient with covid on BIPAP and currently very depressed stats I am unable to take care of myself due to polio, she lives alone and it is difficult for her to manage her ADL, she wants to talk to hospice, will consult hospice, Patient is being treated with dexmethason, will try to wean patient off BIPAP. Review of Sy
[2021-09-26] MEDS: ENOXAPARIN 60 MG/0.6 ML SYRINGE 45 MG SUB-Q (21:21)
[2021-09-26] MEDS: TEMAZEPAM (*CRX) 15 MG CAPSULE PO (21:23)
[2021-09-26] MEDS: QUEtiapine FUMARATE 25 MG TABLET 50 MG PO (21:24)
[2021-09-26 22:01] LABS: Glucose Point of Care 157 mg/dl (65-105)
[2021-09-27] VITALS (30 sets, daily range): BP systolic 113–144; BP diastolic 52–76; PULSE 46–71; RESP 19–30; TEMP 35.8–36.9; O2SAT 90–100
[2021-09-27 05:19] LABS: Hematocrit 24.1 % (37.0-47.0); Mean Corpuscular HGB Conc 27.4 g/dl (32-36); Mean Corpuscular Hemoglobin 22.8 pg (26-34); Mean Corpuscular Volume 83.4 fl (80-100); Mean Platelet Volume 9.6 fl (7.4-10.4); Platelet Count Result 203 k/mm3 (150-375); Red Blood Count 2.89 M/mm3 (4.2-5.4); Red Cell Distribution Width 19.9 % (11.5-14.5); White Blood Count 6.8 K/mm3 (4.5-10.0)
[2021-09-27 05:35] LABS: Hemoglobin 6.6 g/dL (12.0-15.0)
[2021-09-27 05:42] LABS: Alanine Aminotransferase 497 U/L (6-35); Albumin Level 2.5 g/dL (3.5-5.1); Alkaline Phosphatase 70 U/L (38-126); Anion Gap 9 mmol/L (8-16); Aspartate Amino Transferase 232 U/L (14-36); Bilirubin,Total 0.1 mg/dL (0.2-1.3); Blood Urea Nitrogen 16 mg/dL (7-17); Calcium 7.4 mg/dL (8.4-10.2); Carbon Dioxide 24 mmol/L (22-30); Chloride 108 mmol/L (98-107); Estimated Glomerular Filt Rate > 60; Glucose 112 mg/dL (65-110); Potassium 2.7 mmol/L (3.4-5.0); Sodium 141 mmol/L (137-145)
[2021-09-27] MEDS: HYDROcodone/acetaminophen (*CRX) 7.5-325 MG TABLET 1 TAB PO (06:04)
[2021-09-27] MEDS: cefTRIAXone 2 GM in SODIUM CHLORIDE 0.9% IV 100 ML 200 ML IVPB (06:28)
[2021-09-27] MEDS: POTASSIUM CHLORIDE 20 MEQ TABLET 40 MEQ PO (06:29)
[2021-09-27] MEDS: KCL 20 MEQ/SW 100 ML 100 ML 50 MEQ IVPB (06:51)
[2021-09-27] MEDS: LEVOTHYROXINE SODIUM 50 MCG TABLET PO (07:03)
[2021-09-27] MEDS: SACUBITRIL/VALSARTAN 24-26 MG TABLET 1 TAB PO ×2 (09:07→20:34)
[2021-09-27] MEDS: DIVALPROEX SODIUM DR 125 MG TABEC PO ×2 (09:08→20:35)
[2021-09-27] MEDS: VENLAFAXINE HCL XR 75 MG CAP.ER.24H PO (09:08)
[2021-09-27] MEDS: busPIRone HCL 10 MG TABLET PO ×2 (09:08→20:35)
[2021-09-27] MEDS: ESCITALOPRAM OXALATE 10 MG TABLET PO (09:08)
[2021-09-27] MEDS: carvediloL 6.25 MG TABLET PO ×2 (09:08→20:35)
[2021-09-27] MEDS: PANTOPRAZOLE 40 MG TABLET PO ×2 (09:08→20:35)
[2021-09-27 11:13] LABS: Glucose Point of Care 98 mg/dl (65-105)
[2021-09-27] MEDS: SODIUM CHLORIDE 0.9% IV 250 ML 30 ML IV CONT (11:45)
[2021-09-27 17:03] LABS: Glucose Point of Care 139 mg/dl (65-105)
[2021-09-27 18:45] LABS: Hematocrit 30.4 % (37.0-47.0); Mean Corpuscular HGB Conc 29.6 g/dl (32-36); Mean Corpuscular Hemoglobin 24.6 pg (26-34); Mean Corpuscular Volume 83.1 fl (80-100); Mean Platelet Volume 9.9 fl (7.4-10.4); Platelet Count Result 197 k/mm3 (150-375); Red Blood Count 3.66 M/mm3 (4.2-5.4); Red Cell Distribution Width 18.6 % (11.5-14.5); White Blood Count 8.9 K/mm3 (4.5-10.0)
--- NOTE | 2021-09-27 18:47 | PM.IMPN ---
Progress Note: A&P Assessment and Plan (1) Hypoxia: Code(s): R09.02 - Hypoxemia Status: Acute Assessment and Plan: patient is on BiPAP likely secondary to restrictive as well as obstructive disease combination ABG reviewed shows compensated respiratory failure patient tested positive for COVID added Decadron elevated liver enzymes not a candidate for remdesivir 09/26/2021 interval history: patient with covid on BIPAP and currently very depressed stats I am unable to take care of myself due to polio, she lives alone and it is difficult for her to manage her ADL, she wants to talk to hospice, will consult hospice, Patient is being treated with dexmethason, will try to wean patient off BIPAP. 09/27/2021 interval history: patient with covid on BIPAP and currently very depressed stats I am unable to take care of myself due to polio, she lives alone and it is difficult for her to manage her ADL, patient was seen by hospice and did not qualify inpatient hospice recommended patient may have to go to nursing, patient hemoglobin is trending down, there is no complaint of bleeding according to nursing staff they have not seen any blood her stools appears to be normal in color, patient was given 1 unit of pack RBC, continue to monitor, patient remains on high-flow oxygen will continue wean the patient off high-flow oxygen and further recommendation to follow. (2) Non-ST elevated myocardial infarction (non-STEMI): Code(s): I21.4 - Non-ST elevation (NSTEMI) myocardial infarction Status: Acute Assessment and Plan: chronic EKG changes elevation of troponins likely to be nonischemic myocardial injury (3) Gastroesophageal reflux disease: Code(s): K21.9 - Gastro-esophageal reflux disease without esophagitis Status: Acute Assessment and Plan: PPI (4) COPD (chronic obstructive pulmonary disease): Code(s): J44.9 - Chronic obstructive pulmonary disease, unspecified Status: Acute Assessment and Plan: breathing treatments (5) Cardiomyopathy: Code(s): I42.9 - Cardiomyopathy, unspecified Status: Acute Assessment and Plan: restart home meds when clinically able to so (6) Combined systolic and diastolic congestive heart failure: Qualifiers: Heart failure chronicity: chronic Qualified Code(s): I50.42 - Chronic combined systolic (congestive) and diastolic (congestive) heart failure Code(s): I50.40 - Unspecified combined systolic (congestive) and diastolic (congestive) heart failure Status: Acute Assessment and Plan: patient with elevated BNP HOWEVER VERY TENUOUS BLOOD PRESSURE CONTINUE TO MONITOR WILL OBTAIN ECHOCARDIOGRAM (7) Acute respiratory failure with hypoxia: Code(s): J96.01 - Acute respiratory failure with hypoxia Status: Acute Assessment and Plan: CONTINUE BIPAP (8) Sanchez's esophagus determined by biopsy: Code(s): K22.70 - Sanchez's esophagus without dysplasia Status: Acute Assessment and Plan: FOLLOW-UP IN OUTPATIENT SETTING (9) Post-polio syndrome: Code(s): G14 - Postpolio syndrome Status: Acute Assessment and Plan: SUPPORTIVE CARE (10) Chronic chest pain: Code(s): R07.9 - Chest pain, unspecified; G89.29 - Other chronic pain Status: Acute Assessment and Plan: SUPPORTIVE CARE (11) Elevated liver enzymes: Code(s): R74.8 - Abnormal levels of other serum enzymes Status: Acute Assessment and Plan: WILL OBTAIN RIGHT UPPER QUADRANT ULTRASOUND CONTINUE TO TREND Subjective Date/time seen: 09/27/21 18:47 09/27/2021 interval history: patient with covid on BIPAP and currently very depressed stats I am unable to take care of myself due to polio, she lives alone and it is difficult for her to manage her ADL, patient was seen by hospice and did not qualify inpatient hospice recommended patient may
[2021-09-27 18:54] LABS: Anion Gap 7 mmol/L (8-16); Blood Urea Nitrogen 14 mg/dL (7-17); Calcium 7.7 mg/dL (8.4-10.2); Carbon Dioxide 27 mmol/L (22-30); Chloride 109 mmol/L (98-107); Estimated Glomerular Filt Rate > 60; Glucose 124 mg/dL (65-110); Potassium 3.9 mmol/L (3.4-5.0); Sodium 143 mmol/L (137-145)
[2021-09-27] MEDS: QUEtiapine FUMARATE 25 MG TABLET 50 MG PO (20:34)
[2021-09-27] MEDS: TEMAZEPAM (*CRX) 15 MG CAPSULE PO (20:35)
[2021-09-27 20:58] LABS: Glucose Point of Care 174 mg/dl (65-105)
[2021-09-27 21:37] LABS: IFOB Positive Control Positive; Immunochemical Fecal Occult Bl Negative (N)
[2021-09-27] MEDS: ENOXAPARIN 60 MG/0.6 ML SYRINGE 45 MG SUB-Q (22:36)
[2021-09-28] VITALS (9 sets, daily range): BP systolic 138–161; BP diastolic 54–81; PULSE 44–74; RESP 21–28; TEMP 36.6–37.2; O2SAT 95–100
[2021-09-28] MEDS: HYDROcodone/acetaminophen (*CRX) 7.5-325 MG TABLET 1 TAB PO (04:35)
[2021-09-28] MEDS: LEVOTHYROXINE SODIUM 50 MCG TABLET PO (06:32)
[2021-09-28] MEDS: ESCITALOPRAM OXALATE 10 MG TABLET PO (09:01)
[2021-09-28] MEDS: SACUBITRIL/VALSARTAN 24-26 MG TABLET 1 TAB PO (09:01)
[2021-09-28] MEDS: carvediloL 6.25 MG TABLET PO (09:01)
[2021-09-28] MEDS: cefTRIAXone 2 GM in SODIUM CHLORIDE 0.9% IV 100 ML 200 ML IVPB (09:01)
[2021-09-28] MEDS: VENLAFAXINE HCL XR 75 MG CAP.ER.24H PO (09:01)
[2021-09-28] MEDS: PANTOPRAZOLE 40 MG TABLET PO (09:01)
[2021-09-28] MEDS: busPIRone HCL 10 MG TABLET PO (09:01)
[2021-09-28] MEDS: DIVALPROEX SODIUM DR 125 MG TABEC PO (09:01)
[2021-09-28 09:22] LABS: Glucose Point of Care 120 mg/dl (65-105)
[2021-09-28 10:01] LABS: Hematocrit 31.4 % (37.0-47.0); Hemoglobin 9.3 g/dL (12.0-15.0); Mean Corpuscular HGB Conc 29.6 g/dl (32-36); Mean Corpuscular Hemoglobin 24.5 pg (26-34); Mean Corpuscular Volume 82.6 fl (80-100); Mean Platelet Volume 10.5 fl (7.4-10.4); Platelet Count Result 187 k/mm3 (150-375); Red Cell Distribution Width 18.9 % (11.5-14.5); White Blood Count 10.5 K/mm3 (4.5-10.0)
[2021-09-28 10:16] LABS: Alanine Aminotransferase 349 U/L (6-35); Albumin Level 2.9 g/dL (3.5-5.1); Alkaline Phosphatase 97 U/L (38-126); Anion Gap 8 mmol/L (8-16); Aspartate Amino Transferase 61 U/L (14-36); Bilirubin,Total 0.3 mg/dL (0.2-1.3); Blood Urea Nitrogen 15 mg/dL (7-17); Calcium 7.7 mg/dL (8.4-10.2); Carbon Dioxide 26 mmol/L (22-30); Chloride 107 mmol/L (98-107); Estimated Glomerular Filt Rate > 60; Glucose 86 mg/dL (65-110); Potassium 3.4 mmol/L (3.4-5.0); Sodium 141 mmol/L (137-145)
--- NOTE | 2021-09-28 12:01 | PM.DS ---
DS: Admitting Diagnosis Discharge Date 09/28/2021 Admitting Diagnosis Shortness of breath DS: Discharge Diagnosis Discharge Diagnosis (1) Hypoxia: Code(s): R09.02 - Hypoxemia Status: Acute Assessment and Plan: patient is on BiPAP likely secondary to restrictive as well as obstructive disease combination ABG reviewed shows compensated respiratory failure patient tested positive for COVID added Decadron elevated liver enzymes not a candidate for remdesivir 09/26/2021 interval history: patient with covid on BIPAP and currently very depressed stats I am unable to take care of myself due to polio, she lives alone and it is difficult for her to manage her ADL, she wants to talk to hospice, will consult hospice, Patient is being treated with dexmethason, will try to wean patient off BIPAP. 09/27/2021 interval history: patient with covid on BIPAP and currently very depressed stats I am unable to take care of myself due to polio, she lives alone and it is difficult for her to manage her ADL, patient was seen by hospice and did not qualify inpatient hospice recommended patient may have to go to nursing, patient hemoglobin is trending down, there is no complaint of bleeding according to nursing staff they have not seen any blood her stools appears to be normal in color, patient was given 1 unit of pack RBC, continue to monitor, patient remains on high-flow oxygen will continue wean the patient off high-flow oxygen and further recommendation to follow. (2) Non-ST elevated myocardial infarction (non-STEMI): Code(s): I21.4 - Non-ST elevation (NSTEMI) myocardial infarction Status: Acute Assessment and Plan: chronic EKG changes elevation of troponins likely to be nonischemic myocardial injury (3) Gastroesophageal reflux disease: Code(s): K21.9 - Gastro-esophageal reflux disease without esophagitis Status: Acute Assessment and Plan: PPI (4) COPD (chronic obstructive pulmonary disease): Code(s): J44.9 - Chronic obstructive pulmonary disease, unspecified Status: Acute Assessment and Plan: breathing treatments (5) Cardiomyopathy: Code(s): I42.9 - Cardiomyopathy, unspecified Status: Acute Assessment and Plan: restart home meds when clinically able to so (6) Combined systolic and diastolic congestive heart failure: Qualifiers: Heart failure chronicity: chronic Qualified Code(s): I50.42 - Chronic combined systolic (congestive) and diastolic (congestive) heart failure Code(s): I50.40 - Unspecified combined systolic (congestive) and diastolic (congestive) heart failure Status: Acute Assessment and Plan: patient with elevated BNP HOWEVER VERY TENUOUS BLOOD PRESSURE CONTINUE TO MONITOR WILL OBTAIN ECHOCARDIOGRAM (7) Acute respiratory failure with hypoxia: Code(s): J96.01 - Acute respiratory failure with hypoxia Status: Acute Assessment and Plan: CONTINUE BIPAP (8) Sanchez's esophagus determined by biopsy: Code(s): K22.70 - Sancehz's esophagus without dysplasia Status: Acute Assessment and Plan: FOLLOW-UP IN OUTPATIENT SETTING (9) Post-polio syndrome: Code(s): G14 - Postpolio syndrome Status: Acute Assessment and Plan: SUPPORTIVE CARE (10) Chronic chest pain: Code(s): R07.9 - Chest pain, unspecified; G89.29 - Other chronic pain Status: Acute Assessment and Plan: SUPPORTIVE CARE (11) Elevated liver enzymes: Code(s): R74.8 - Abnormal levels of other serum enzymes Status: Acute Assessment and Plan: WILL OBTAIN RIGHT UPPER QUADRANT ULTRASOUND CONTINUE TO TREND DS: Summary Hospital Course Reason for hospitalization: shortness of breath Narrative: ?this is a 76-year-old female with past medical history significant for polio, chronic obstructive pulmonary disease, tuberculosis, combined systolic
[2021-09-28 13:00] LABS: Glucose Point of Care 100 mg/dl (65-105)
== END 2021-09-28 13:16 | disposition hospice, inpatient (51) | DRG 177 ==
LOC: ANHED 21:41 → ANHIMU 09-25 00:15
PROVIDERS: Chiropractor; Emergency Medicine; Admitting Provider Internal Medicine; Emergency Provider Emergency Medicine; PCP Emergency Medicine; Visit Provider Family Medicine
DX: U07.1 COVID-19 (principal); J96.01 Acute respiratory failure with hypoxia; I42.9 Cardiomyopathy, unspecified; I50.42 Chronic combined systolic (congestive) and diastolic (congestive) heart failure; I5A Non-ischemic myocardial injury (non-traumatic); R74.8 Abnormal levels of other serum enzymes; G14 Postpolio syndrome; D50.9 Iron deficiency anemia, unspecified; E03.9 Hypothyroidism, unspecified; E16.4 Increased secretion of gastrin; F41.8 Other specified anxiety disorders; G89.29 Other chronic pain; I25.10 Atherosclerotic heart disease of native coronary artery without angina pectoris; I08.0 Rheumatic disorders of both mitral and aortic valves; J44.9 Chronic obstructive pulmonary disease, unspecified; K21.9 Gastro-esophageal reflux disease without esophagitis; K22.70 Barrett's esophagus without dysplasia; M81.0 Age-related osteoporosis without current pathological fracture; Z86.11 Personal history of tuberculosis; Z66 Do not resuscitate; Z87.891 Personal history of nicotine dependence; Z98.42 Cataract extraction status, left eye; Z98.41 Cataract extraction status, right eye; Z90.710 Acquired absence of both cervix and uterus; Z28.310 Unvaccinated for COVID-19; Z99.3 Dependence on wheelchair
CPT/HCPCS: 36415; 36430; 36600; 71045; 71275; 76705; 80048; 80053; 82274; 82375; 82805; 82948; 83050; 83605; 83880; 84460; 84484; 85025; 85027; 85610; 85730; 86850; 86900; 86901; 86920; 87040; 93005; 93306; 94002; 94003; 96365; 96367; 99291; A9270; C9803; J0456; J0692; J0696; J1100; J1650; J1940; J1956; J3370; J3480; J7030; J7050; P9016; Q9967; U0003; U0005

== ENCOUNTER 2021-09-28 17:13 | HOS | payer OTHER, MEDICARE, MEDICAID, SELFPAY ==
[2021-09-28] MEDS: MORPHINE SULFATE (*CRX) 2 MG/ML INJ IV PUSH (13:37)
[2021-09-28] MEDS: MORPHINE SULFATE INJ (*CRX) 50 MG in SODIUM CHLORIDE 0.9% IV 95 ML IV CONT (13:45)
--- NOTE | 2021-09-28 14:20 | PM.IMHP ---
H&P: HPI History of Present Illness Date/Time: 09/28/21 14:20 Chief Complaint: uncontrolled dyspnea Narrative: this unfortunate 76-year-old female with a history of post-polio syndrome coronary artery disease depression anxiety congestive heart failure COPD chronic respiratory failure hypothyroidism anemia and Sanchez's esophagus who is chronically wheelchair-bound was brought the emergency room on September 25 in the afternoon due to respiratory distress. She was noted to be hypoxemic. COVID assay was positive. She was treated with 1 dose of remdesivir and started on dexamethasone. Remdesivir was stopped due to a climbing transaminases. She required increasing levels of supplemental oxygen. She was on Airvo at 55-60% prior to graduating to a BiPAP. She did not tolerate the BiPAP well. She was restless and dyspneic on that. She wished to have comfort medications and wean off the high-flow oxygen on 2 L nasal cannula. Due to her recent decline in functional status and her acute COVID illness with respiratory failure and poor prognostic factors with her multiple comorbidities as well as the fact that she would never live independently again she told the hospice nurse over the past 3 days multiple times that she felt that quality of life would not be desirable at all. She was to be admitted to inpatient hospice for oxygen weaning and comfort care. Review of Systems Review of Systems: ROS unobtainable: Yes unobtainable due to medical condition PMFSH Past Medical History Medical History Aortic insufficiency Moderate to severe by recent echocardiogram. Barretts esophagus Cardiomyopathy Most recent ejection fraction of 25 to 35%. Started on Entresto in March 2020. Chronic anemia Chronic chest pain Nonischemic in etiology. Combined systolic and diastolic congestive heart failure Depression with anxiety Gastroesophageal reflux disease History of pelvic fracture History of poliomyelitis History of shingles Hypothyroidism Iron deficiency anemia Intolerant oral supplementation. Mild coronary artery disease Cardiac catheterization in October 2018 at [facility] showed 40% ostial diagonal stenosis. Mitral regurgitation Moderate to moderately severe by recent echo. Osteoporosis Post-polio syndrome Amaya-Hugo syndrome Surgical History Surgical History History of ankle fusion Bilateral. History of bilateral cataract extraction History of hip surgery ORIF right hip fracture. History of hysterectomy History of shoulder surgery Left shoulder surgery with rotator cuff repair. Family History Family History Grandparent Diabetes mellitus FH: brain aneurysm Mother Hypertension Motor vehicle accident Cause of . Patient's mother when patient was 10 years old Social History Social History (Updated 09/28/21 @ 16:43 by Dominic Hu MD) Social History: The patient lives in her own apartment in [place]. She is . They had 2 daughters, both whom are (1 was killed by stray gun fire, and the other ?because of poor lifestyle choices?). 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 She smoked a pack of cigarettes per day for about 32 years and quit in 2008. She denies alcohol and illicit substance abuse. She designates her neighbor Verónica Tinoco as her surrogate decision maker. Code status is DNR. Smoking packs per day: 1 Smoking cigarettes per day: 20.0 Years smoked: 30 Smoking pack-years: 30.00 Smoking status: Former smoker Tobacco type: cigarettes Second hand tobacco smoke exposure: Yes Smoking end date: 11/02/08 Alcohol intake: never Substance use: never Substance use type: does not use Living arrangements: alone Occupation/Education: retired Ge
[2021-09-28] MEDS: diazePAM INJ (*CRX) 10 MG/2 ML SYRINGE 5 MG IV PUSH (15:09)
--- NOTE | 2021-09-28 18:26 | PC.NURSE ---
Expiration assessment completed by Madiha Whitney RN.
--- NOTE | 2021-09-29 15:09 | P.DN_ITS ---
Discharge Summary Date and Time Date of : 09/28/21 Time of : 17:30 Provider Pronounced By: eusebio alves rn and jassi shepard rn Probable Cause of Probable Cause of : Acute hypoxemic respiratory failure due to COVID-19 pneumonia Summary Hospital Course: admitted inpatient hospice service due to uncontrolled dyspnea secondary to acute hypoxemic respiratory failure and COVID-19 pneumonia . Medications titrated to comfort. Patient peacefully. Additional Data Confirmation of as documented by pronouncing clinician: Pupillary Reflex, Palpable Pulses, Response to Stimuli, Heart Tones and Breath Sounds Name of Provider Notified: vitas Time Provider Notified: 17:35 Provider Requests Autopsy: No Biological Sciences Professor Notified: Yes Date [facility] Notified of : 09/28/21 Time [facility] Notified of : 17:50
== END 2021-09-28 17:30 | disposition expired | DRG 951 ==
PROVIDERS: Admitting Provider Internal Medicine; PCP Emergency Medicine; Visit Provider Internal Medicine
DX: Z51.5 Encounter for palliative care (principal); U07.1 COVID-19; J12.82 Pneumonia due to coronavirus disease 2019; J96.21 Acute and chronic respiratory failure with hypoxia; I42.9 Cardiomyopathy, unspecified; I50.42 Chronic combined systolic (congestive) and diastolic (congestive) heart failure; Z66 Do not resuscitate; G14 Postpolio syndrome; D50.9 Iron deficiency anemia, unspecified; E03.9 Hypothyroidism, unspecified; E16.4 Increased secretion of gastrin; F41.8 Other specified anxiety disorders; I25.10 Atherosclerotic heart disease of native coronary artery without angina pectoris; I08.0 Rheumatic disorders of both mitral and aortic valves; K22.70 Barrett's esophagus without dysplasia; K21.9 Gastro-esophageal reflux disease without esophagitis; M81.0 Age-related osteoporosis without current pathological fracture; R74.8 Abnormal levels of other serum enzymes; Z87.891 Personal history of nicotine dependence; Z99.3 Dependence on wheelchair; Z98.42 Cataract extraction status, left eye; Z98.41 Cataract extraction status, right eye; Z90.710 Acquired absence of both cervix and uterus
CPT/HCPCS: A9270; J2270; J3360